=== PATIENT | male | born 1960 | race Caucasian/White ===

== ENCOUNTER 2021-11-05 15:44 | Inpatient (IN) ==
[2021-11-05] MEDS ORDERED: NS 100 ML IV 100 ML ONE (16:28)
--- NOTE | 2021-11-05 16:31 | DR.EXTPAIN ---
HPI Time seen Time Seen by Provider: 11/05/21 16:22 PCP Primary Care Physician: SEBASTIAN HPI Comment HPI Comment: PATIENT WITH AN PATIENT BILLER COMPLAINS OF RIGHT FOOT PAIN, DISCOLORED RIGHT TOES. DENIES FEVER, CHILLS, DYSPNEA AND COUGH. Complaint/Symptoms Chief Complaint Doctor Comments: RIGHT FOOT PAIN, DISCOLORED TOES Chief Complaint:: PATIENT'S FAMILY STATES PATIENT SAYS HIS FOOT BEGAN TO HURT HIM APPROX 1 WEEK AGO. PATIENT HAS BEEN TO PCP AND FOOT DOCTOR. PATIENT HAS PREV IOUSLY DOCUMENTED AMPUTATION OF RT GREAT TOE. ALL OF HIS REMAINING TOES ARE ISCHEMIC COVID-19 Coronavirus risk:travel/contact w/high risk person: No Has patient experienced Coronavirus symptoms: No Source History Provided: Patient Mode of arrival Mode of Arrival: Ambulatory Timing Onset of Chief Complaint: 10/30/21 Associated signs and symptoms Associated Signs and Symptoms: Pain (IN RIGHT FOOT AND DISCOLORED TOES) PMH PMH Past Medical History: Yes Past Medical History Comment: PVD Past Surgical History: Yes Surgical History: Ortho Surgery Family History History of Family Medical Conditions: Yes Family Medical History: Heart Failure Social History Does patient currently use any type of tobacco product: Yes Have you used tobacco products in the last 12 months: Yes Type of Tobacco Use: Cigarettes Does any household member use tobacco: No Alcohol Use: None Do you use any recreational Drugs:: No Lives With: Alone Lives Where: Home Travel Risk Coronavirus risk:travel/contact w/high risk person: No Has patient experienced Coronavirus symptoms: No Infectious screening In the last 2 months have you had wt loss of >10#?: NO Have you had fever, night sweats or hemotysis?: No Have you traveled outside the country in the last 6 months?: No Isolation: Standard ROS Review of Systems Constitutional: No Symptoms Reported Eyes: No Symptoms Reported ENTM: No Symptoms Reported Respiratoy: No Symptoms Reported Cardiovascular: No Symptoms Reported Gastrointestinal/Abdominal: No Symptoms Reported Genitourinary: No Symptoms Reported Neurological: No Symptoms Reported Musculoskeletal: See HPI and Right (FOOT WITH PAIN, SWELLING , BLACK DISCOLORATION OVER GREAT TOE STUMP AND 2ND TOE, RIGHT PEDIS PULSE 2+) Integumentary: No Symptoms Reported Hematologic/Lymphatic: No Symptoms Reported Endocrine: No Symptoms Reported Psychiatric: No Symptoms Reported All Other Systems: Reviewed and Negative PE Vital Signs Vitals: Temperature 98.6 F Pulse Rate 77 Respiratory Rate 20 Blood Pressure 152/66 O2 Sat by Pulse Oximetry 95 General Limitations: Language Barrier (MARKED DECREASED HEARING ACUITY) Head Head Exam: Normal Inspection Eyes Eye exam: Normal Appearance and PERRL ENT ENT Exam: Normal Exam and Normal Oropharynx Neck Neck Exam: Normal Inspection Chest Chest Inspection: Normal Inspection and Symmetric Chest Wall Rise Respiratory Respiratory Exam: Bilateral: Clear to Auscultation Cardiovascular Cardiovascular Exam: Regular Rate and Normal Rhythm Abdominal Exam Abdominal Exam: Normal Inspection and Normal Bowel Sounds Extremities Extremities Exam: Full ROM, Tenderness and Edema (RIGHT FOOT PROXIMAL TO DISTAL METATARSALS, ERYTHYMA, BLACK DISCOLORATION STUMP GREAT TOE AMPUTATION SITE, AND 2ND TOE) Upper Extremities Neuromotor Exam: Normal Exam Lower Extremities Hip/Pelvis Exam: Normal Inspection Foot/Toe Exam: Swelling and Other (BLACK DISCOLORATION STUMP RIGHT GREAT TOE AND 2ND TOE) Back Back Exam: Normal Inspection and Full ROM Neurological Neurological Exam: Alert and Oriented X3 Psychiatric Psychiatric Exam: Normal Affect Skin Skin Exam: Warm and Dry MDM Differential Diagnosis Differential Diagnosis: Other (RIGHT FOOT ISCHEMIA RIGHT FOOT, PERIPHERAL VASCULAR DISEASE) COURSE Treatment Treatment: IV NORMAL SALINE 200ML/HR Consultation Call Returned: 17:30 Consultation Comments: DISCUSSED WITH DR MONTOYA FOR ADMIT ROR Labs Reviewed Laboratory Results Reviewed?: Yes Result Diagrams: 11/05/21 16:15 11/05/21 16:15 Laboratory: WBC 9.3 X10^3/uL (3.6-10.0) 11/05/21 16:15 RBC 4.93 X10^6/uL (4.7-6.0) 11/05/21 16:15 Hgb 14.5 g/dL (13.5-18.0) 11/05/21 16:15 Hct 43.3 % (42.0-54.0) 11/05/21 16:15 MCV 87.9 fL (80.0-100.0) 11/05/21 16:15 MCH 29.5 pg (27.0-34.0) 11/05/21 16:15 MCHC 33.5 g/dL (33.0-35.0) 11/05/21 16:15 RDW 14.1 % (11.6-16.5) 11/05/21 16:15 Plt Count 198 X10^3/uL (150.0-450.0) 11/05/21 16:15 MPV 8.1 fL (7.4-11.0) 11/05/21 16:15 Neut % (Auto) 73.9 % (42.0-75.0) 11/05/21 16:15 Lymph % (Auto) 16.3 % (21.0-51.0) L 11/05/21 16:15 [place] % (Auto) 8.6 % (0.0-13.0) 11/05/21 16:15 Eos % (Auto) 0.7 % (0.9-2.9) L 11/05/21 16:15 Baso % (Auto) 0.5 % (0.2-1.0) 11/05/21 16:15 Neut # (Auto) 6.9 x10^3/uL (2.2-4.8) H 11/05/21 16:15 Lymph # (Auto) 1.5 X10^3/uL (1.3-2.9) 11/05/21 16:15 [place] # (Auto) 0.8 x10^3/uL (0.3-0.8) 11/05/21 16:15 Eos # (Auto) 0.1 x10^3/uL (0.0-0.2) 11/05/21 16:15 Baso # (Auto) 0.0 X10^3/uL (0.0-0.1) 11/05/21 16:15 Absolute Nucleated RBC 0.0 /100WBC 11/05/21 16:15 PT 14.5 SECONDS (11.8-14.3) 11/05/21 16:33 INR Target Range - 11/05/21 16:33 INR 1.18 (0.8-1.3) 11/05/21 16:33 APTT 34.4 SECONDS (22.9-36.5) 11/05/21 16:33 PTT Comment - 11/05/21 16:33 Sodium 139 mmol/L (136-145) 11/05/21 16:15 Corrected Sodium 140 mmol/L (136-145) 11/05/21 16:15 Potassium 4.0 mmol/L (3.5-5.1) 11/05/21 16:15 Chloride 104 mmol/L (98-107) 11/05/21 16:15 Carbon Dioxide 26.3 mmol/L (21-32) 11/05/21 16:15 BUN 8 mg/dL (7-18) 11/05/21 16:15 Creatinine 0.61 mg/dL (0.70-1.30) L 11/05/21 16:15 Est GFR (MDRD) Af Amer > 60 (>60) 11/05/21 16:15 Est GFR (MDRD) Non-Af > 60 (>60) 11/05/21 16:15 Glucose 122 mg/dL (65-99) H 11/05/21 16:15 Lactic Acid 0.5 mmol/L (0.4-2.0) 11/05/21 16:33 Calcium 8.8 mg/dL (8.5-10.1) 11/05/21 16:15 Corrected Calcium TNP 11/05/21 16:15 Total Bilirubin 0.40 mg/dL (0.2-1.0) 11/05/21 16:15 AST 11 Units/L (15-37) L 11/05/21 16:15 ALT 13 Units/L (12-78) 11/05/21 16:15 Alkaline Phosphatase 77 Units/L (46-116) 11/05/21 16:15 Total Protein 7.3 g/dL (6.4-8.2) 11/05/21 16:15 Albumin 3.6 g/dL (3.4-5.0) 11/05/21 16:15 Globulin 3.7 g/dL (2.5-4.5) 11/05/21 16:15 Albumin/Globulin Ratio 1.0 Ratio (1.1-2.1) L 11/05/21 16:15 Opioid Opioid Risk Tool Age (Samuel box if 16-45): No History of Preadolescent Sexual Abuse: No Total: 0 Total Score Risk Category: Low Risk Copyright: Dilip GARCIA predicting aberrant behaviors Diagnosis Discharge Problem: Ischemic pain of right foot
[2021-11-05] MEDS ORDERED: VANCOMYCIN IV *PREMIX 1 G/200 ML BAG 1 G/200 ML PIGGYBACK IV ONE ×2 (16:32→16:43)
[2021-11-05] MEDS ORDERED: NS 1,000 ML IV 1,000 ML IV STA (16:34)
[2021-11-05] MEDS ORDERED: NS 1,000 ML IV 1,000 ML ONE (16:42)
[2021-11-05 16:52] LABS: BASOPHILS % (AUTO) 0.5 % (0.2-1.0); EOSINOPHILS # (AUTO) 0.1 x10^3/uL (0.0-0.2); EOSINOPHILS % (AUTO) 0.7 % (0.9-2.9); HEMATOCRIT 43.3 % (42.0-54.0); HEMOGLOBIN 14.5 g/dL (13.5-18.0); LYMPHOCYTES # (AUTO) 1.5 X10^3/uL (1.3-2.9); LYMPHOCYTES % (AUTO) 16.3 % (21.0-51.0); MEAN CORPUSCULAR HEMOGLOBIN 29.5 pg (27.0-34.0); MEAN CORPUSCULAR HGB CONC 33.5 g/dL (33.0-35.0); MEAN CORPUSCULAR VOLUME 87.9 fL (80.0-100.0); MEAN PLATELET VOLUME 8.1 fL (7.4-11.0); MONOCYTES # (AUTO) 0.8 x10^3/uL (0.3-0.8); MONOCYTES % (AUTO) 8.6 % (0.0-13.0); NEUTROPHILS # (AUTO) 6.9 x10^3/uL (2.2-4.8); NEUTROPHILS % (AUTO) 73.9 % (42.0-75.0); PLATELET COUNT 198 X10^3/uL (150.0-450.0); RED BLOOD COUNT 4.93 X10^6/uL (4.7-6.0); RED CELL DISTRIBUTION WIDTH 14.1 % (11.6-16.5); WHITE BLOOD COUNT 9.3 X10^3/uL (3.6-10.0)
[2021-11-05 17:00] LABS: ALANINE AMINOTRANSFERASE 13 Units/L (12-78); ALBUMIN 3.6 g/dL (3.4-5.0); ALKALINE PHOSPHATASE 77 Units/L (46-116); ASPARTATE AMINO TRANSFERASE 11 Units/L (15-37); BLOOD UREA NITROGEN 8 mg/dL (7-18); CALCIUM 8.8 mg/dL (8.5-10.1); CARBON DIOXIDE 26.3 mmol/L (21-32); CHLORIDE 104 mmol/L (98-107); COR NA(FOR HYPERGLY) 140 mmol/L (136-145); CREATININE 0.61 mg/dL (0.70-1.30); SODIUM 139 mmol/L (136-145); TOTAL PROTEIN 7.3 g/dL (6.4-8.2); eGFR NON BLACK RACES > 60 (>60)
[2021-11-05] MEDS: NS 1,000 ML IV 1,000 ML IV SCH (20:05)
--- NOTE | 2021-11-05 20:05 | CT ---
HISTORYFAMILY STATES PATIENT SAYS HIS FOOT BEGAN TO HURT HIM APPROX 1 WEEK AGO. PATIENT HAS BEEN TO PCP AND FOOT DOCTOR. PATIENT HAS PREVIOUSLY DOCUMENTED AMPUTATION OF RT GREAT TOE. ALL OF HIS REMAINING TOES ARE ISCHEMICSTUDYCTA AORTA WITH RUNOFFCOMPARISONNone availableTECHNIQUEMultiple axial images of the abdomen and pelvis were obtained from the mesenteric vasculature to the plantar surface of the feet both prior to and after the administration of IV contrast. 3D reconstructions were performed utilizing radial maximum intensity projection imaging. Dose reduction techniques including Automated Exposure Control (AEC) and adjustment of mA and kV were utilized.FINDINGSThe visualized portions of the solid organs are unremarkable in their CT appearance. No significant mesenteric lymphadenopathy or stranding can be observed. No free fluid or free air is seen within the abdomen. No bowel wall thickening or bowel dilatation is present. Small sliding hiatal hernia. Distal colonic diverticulosis without acute diverticulitis. The appendix is normal. The urinary bladder is grossly unremarkable. Mild prostatomegaly. The bony structures are grossly intact.Bilateral lower extremity soft tissue swelling, right more severe than left.Moderate atheromatous plaque within the suprarenal and infrarenal abdominal aorta without aneurysmal dilatation.Right common iliac artery demonstrates moderate atheromatous plaque without occlusion. Internal and external iliac arteries are patent on the right. High-grade stenosis of the right common femoral artery adjacent to the fem-fem bypass graft. Occlusion of the right superficial femoral artery distal to the fem-fem bypass graft. There is no flow within the right superficial femoral artery. The right-sided femoral bypass graft is totally occluded. There is reconstitution of flow within the distal right popliteal artery and tibioperoneal trunk. Three-vessel runoff to the ankle and single-vessel runoff to the foot provided by the posterior tibialis artery.Occlusion of the left common and external iliac arteries. Reconstitution of flow from the VERN provides tributary arterial flow within the deep pelvic distribution of the internal iliac artery. The left common femoral artery is occluded. There is reconstitution of the left superficial femoral artery with diminutive flow noted extending to the distal leg/abductor hiatus with occlusion. There is reconstitution of flow within the proximal popliteal artery. There is 3 vessel runoff to the ankle and 2 vessel runoff to the left foot.IMPRESSIONThe film and right fem-popliteal arterial grafts are occluded.Occlusion of the left common, external and common femoral arteries. Reconstitution of flow of the left superficial femoral artery with diminished flow to the level of the distal leg/hiatus with short-segment occlusion. Reconstitution of flow of the popliteal artery with three-vessel runoff to the foreleg and 2 vessel runoff to the left foot.High-grade stenosis of the right common femoral artery adjacent to the fem-fem graft insertion. Occlusion of the right SFA and majority of the popliteal artery. Reconstitution of flow within the distal popliteal artery with three-vessel runoff to the right ankle and single-vessel runoff to the right foot provided by the posterior tibialis artery.Electronically signed by: LISA ROSALES (Nov 05, 2021 20:03:40)
[2021-11-05] MEDS ORDERED: HEPARIN SODIUM IN D5W 25,000 UNITS/500 ML BAG IV PRN ×2 (20:16→20:24)
[2021-11-05] MEDS ORDERED: CATAPRES TAB 0.2 MG ONE (20:22)
[2021-11-05 20:45] LABS: HEMATOCRIT 43.2 % (42.0-54.0); HEMOGLOBIN 14.5 g/dL (13.5-18.0)
[2021-11-05] MEDS: DILAUDID INJ IVP PRN (20:56)
[2021-11-05] MEDS ORDERED: CATAPRES TAB 0.2 MG PO SCH (21:00)
[2021-11-05] MEDS ORDERED: HEPARIN SODIUM INJ 5000 UNITS IVP ONE (21:27)
[2021-11-05] MEDS ORDERED: CATAPRES TAB 0.2 MG PO PRN (21:36)
[2021-11-05] MEDS ORDERED: HEPARIN SODIUM INJ 5000 UNITS ONE (21:43)
[2021-11-05] MEDS: LOPRESSOR TAB 25 MG PO SCH (22:00)
[2021-11-06 00:39] VITALS: BMI 31.1
[2021-11-06] MEDS: NS 1,000 ML IV 1,000 ML IV SCH ×2 (04:26→11:40)
[2021-11-06] MEDS: DILAUDID INJ IVP PRN (05:20)
--- NOTE | 2021-11-06 07:15 | RAD ---
HISTORYPRE-OP FOR RT FOOTSTUDYCHEST, 1 VIEWCOMPARISONNoneTECHNIQUEAP view of the chestFINDINGSCardiac and mediastinal contours are within normal limits. There are bilateral mild to moderate scattered interstitial opacities. No definite pleural effusion or pneumothorax. Left costophrenic sulcus not completely visualized.[id number] interstitial opacities are nonspecific. Differential includes chronic interstitial disease, atypical pneumonia, or edema.Electronically signed by: Geraldo Taylor (Nov 06, 2021 07:14:27)
[2021-11-06] MEDS ORDERED: LOPRESSOR INJ 5 MG AMP ONE (11:39)
[2021-11-06] MEDS ORDERED: LOPRESSOR INJ 5 MG AMP IVP ONE (11:40)
[2021-11-06 12:22] VITALS: BP 166/73
[2021-11-06] MEDS: LOPRESSOR TAB 25 MG PO SCH (12:22)
--- NOTE | 2021-11-06 13:47 | DR.H&P ---
H&P History & Physical for Day of: H&P Date: 11/05/21 Chief Complaint Chief Complaint: 61 year old male seen in Dr. Patel's office ( podiatry ) with ischemic changes of the right second toe and adjacent toe with evidence of early gangrene. Past medical history significant for femoral- femoral bypass for occluded left common iliac artery and right femoral popliteal artery for right lower extremity ischemia done at the same time in December of 2020. Subsequently patient had amputation of the right great toe. Allergies Allergies Allergy/AdvReac Type Severity Reaction Status Date / Time No Known Drug Allergies Allergy Verified 11/05/21 15:45 History of Present Illness History of Present Illness: As above. The patient has significant rest pain of both lower extremities. CT angiogram obtained showed thrombosis of both the femoral femoral graft and the right femoral popliteal graft. Patient three- vessel runoff on the right leg as this is the most acute leg at this time. Past Medical History Past Medical History: Hypertension (on no treatment ) Additional Medical History: Patient with heavy smoking history. Patient has been deaf since but is educated, can read and write ( that is how we communicated ) and is oriented to person , place and time. History also obtained from his sister over the phone. Past Surgical History Surgical History: Ortho Surgery and Other Additional Surgical History: History of femoral femoral bypass for occluded left common iliac and femoral popliteal bypass for severe ischemia right leg done in December of 2020. All this appears to be occluded now . At that time he was prepared for amputation of the right great toe. His sister notes that he is non- compliant with treatment. He continues to smoke cigarettes heavily and takes no other medications despite having recognized high blood pressure on admission. Family History Family Medical History: Heart Failure Social History Does patient currently use any type of tobacco product: Yes Type of Tobacco Use: Cigarettes How many years tobacco product used: 50 Packs per day or dips/chews per day: 2 Does any household member use tobacco: No Alcohol Use: None Drug Use: None Prescription drug monitoring program results: PDMP was not reviewed Medications Home Medications: No Known Drug Allergies Allergy (Verified 11/05/21 15:45) CONTINUE taking the following medications NK 11/06/21 [History] Labs Result Diagrams: 11/05/21 20:35 11/05/21 16:15 Labs: Laboratory WBC 9.3 X10^3/uL (3.6-10.0) 11/05/21 16:15 RBC 4.93 X10^6/uL (4.7-6.0) 11/05/21 16:15 Hgb 14.5 g/dL (13.5-18.0) 11/05/21 20:35 Hct 43.2 % (42.0-54.0) 11/05/21 20:35 MCV 87.9 fL (80.0-100.0) 11/05/21 16:15 MCH 29.5 pg (27.0-34.0) 11/05/21 16:15 MCHC 33.5 g/dL (33.0-35.0) 11/05/21 16:15 RDW 14.1 % (11.6-16.5) 11/05/21 16:15 Plt Count 192 X10^3/uL (150.0-450.0) 11/05/21 20:35 MPV 8.1 fL (7.4-11.0) 11/05/21 16:15 Neut % (Auto) 73.9 % (42.0-75.0) 11/05/21 16:15 Lymph % (Auto) 16.3 % (21.0-51.0) L 11/05/21 16:15 [place] % (Auto) 8.6 % (0.0-13.0) 11/05/21 16:15 Eos % (Auto) 0.7 % (0.9-2.9) L 11/05/21 16:15 Baso % (Auto) 0.5 % (0.2-1.0) 11/05/21 16:15 Neut # (Auto) 6.9 x10^3/uL (2.2-4.8) H 11/05/21 16:15 Lymph # (Auto) 1.5 X10^3/uL (1.3-2.9) 11/05/21 16:15 [place] # (Auto) 0.8 x10^3/uL (0.3-0.8) 11/05/21 16:15 Eos # (Auto) 0.1 x10^3/uL (0.0-0.2) 11/05/21 16:15 Baso # (Auto) 0.0 X10^3/uL (0.0-0.1) 11/05/21 16:15 Absolute Nucleated RBC 0.0 /100WBC 11/05/21 16:15 PT 14.5 SECONDS (11.8-14.3) 11/05/21 20:35 INR Target Range - 11/05/21 20:35 INR 1.19 (0.8-1.3) 11/05/21 20:35 APTT 80.6 SECONDS (22.9-36.5) H 11/06/21 11:00 PTT Comment - 11/06/21 11:00 Sodium 139 mmol/L (136-145) 11/05/21 16:15 Corrected Sodium 140 mmol/L (136-145) 11/05/21 16:15 Potassium 4.0 mmol/L (3.5-5.1) 11/05/21 16:15 Chloride 104 mmol/L (98-107) 11/05/21 16:15 Carbon Dioxide 26.3 mmol/L (21-32) 11/05/21 16:15 BUN 8 mg/dL (7-18) 11/05/21 16:15 Creatinine 0.61 mg/dL (0.70-1.30) L 11/05/21 16:15 Est GFR (MDRD) Af Amer > 60 (>60) 11/05/21 16:15 Est GFR (MDRD) Non-Af > 60 (>60) 11/05/21 16:15 Glucose 122 mg/dL (65-99) H 11/05/21 16:15 Lactic Acid 0.5 mmol/L (0.4-2.0) 11/05/21 16:33 Calcium 8.8 mg/dL (8.5-10.1) 11/05/21 16:15 Corrected Calcium TNP 11/05/21 16:15 Total Bilirubin 0.40 mg/dL (0.2-1.0) 11/05/21 16:15 AST 11 Units/L (15-37) L 11/05/21 16:15 ALT 13 Units/L (12-78) 11/05/21 16:15 Alkaline Phosphatase 77 Units/L (46-116) 11/05/21 16:15 Total Protein 7.3 g/dL (6.4-8.2) 11/05/21 16:15 Albumin 3.6 g/dL (3.4-5.0) 11/05/21 16:15 Globulin 3.7 g/dL (2.5-4.5) 11/05/21 16:15 Albumin/Globulin Ratio 1.0 Ratio (1.1-2.1) L 11/05/21 16:15 Review of Systems Constitutional: Other (Pain both of both lowere extremities ,greater on the right with gangrenous changes of the toes of the right foot ) Eyes: No Symptoms Reported ENT: No Symptoms Reported Respiratory: No Symptoms Reported Cardiovascular: No Symptoms Reported Gastrointestinal: No Symptoms Reported Genitourinary: No Symptoms Reported Musculoskeletal: Other (See HPI) Skin: Other (right great toe has been amputated. Dry gangrene at the base of this old incision. Dry gangrene of the second toe and beginning at the base of the third toe) Neurological: No Symptoms Reported Physical Exam Vital Signs: Temperature 97.7 F Pulse Rate [Right Brachial] 75 Pulse Rate 41 Respiratory Rate 20 Blood Pressure [Right Arm] 148/68 Blood Pressure 166/73 O2 Sat by Pulse Oximetry 96 Oriented: Normal, Time, Person and Place Eyes: Normal Ear: Normal Nose: Normal Throat: Normal Respiratory: Clear Throughout Cardiovascular: Normal and Other (palpable pulse in the right groin. No palpable or doppler signal at the right ankle. Absent pulse left groin. Absent pulses and doppler signals of the left ankle ) : Normal Auscultation: Bowel Sounds: Normal Palpation: Normal Tenderness: Normal and Other (right foot very tender to palpation. ) Skin: Other (See notes above in regards to the right foot ) Musculoskeletal: Foot (evidence right great toe amputation. Gangrenous changes as noted above. Ischemic changes of the left foot not present but has severely compromised flow on the left side as well ) Psychiatric: Normal and Other (patient is very alert and oriented. ) Mood Description: Angry (has pain ) Affect: Angry and Anxious Speech Pattern: Unclear (unclear speech secondary to history of deafness since ) Assessment/Plan (1) Critical limb ischemia of right lower extremity with gangrene: Status: Acute Plan: The patient will be placed on a Heparin drip. I will obtain the operative summaries from his recent surgery for the femoral femoral graft and right femoral popliteal bypass. I have spoken to his sister by phone and explained that he will probably need some type of intervention of the right leg once I have reviewed the old data. He is at high risk for limb loss of the right leg in the near future as well as possibly the left leg in the future as well. This is a very complicated case. There is a high risk of bilateral limb loss and . (2) Critical limb ischemia of left lower extremity: Status: Acute (3) Ischemic pain of right foot: Status: Acute Review H&P Reviewed: Yes Patient was examined?: Yes
--- NOTE | 2021-11-06 13:54 | VAS ---
HISTORYSevere ski Mica lower extremitiesSTUDYBilateral ABIsCOMPARISONNoneFINDINGSABI on the right 0.25. FANY on the left 0.24. These findings are very lobe and suggest the possibility of bilaterally significant atherosclerotic obstructive disease. Correlation with CTA is recommended for further evaluation.IMPRESSIONBilaterally very low ABIs 0.25 on the right and 0.24 on the left. These findings are suggestive of possibility of severe atherosclerotic obstructive disease in both lower extremities. CTA of the abdomen pelvis and lower extremities recommended.Electronically signed by: CHARU GAMBOA (Nov 06, 2021 13:52:54)
--- NOTE | 2021-11-06 14:28 | W.DIS.FURT ---
Summary of Discharge Discharge Summary of Date Date of Exam: 11/06/21 Admission Date Date of Admission: 11/05/21 Admission Diagnosis Patient Problems (Updated 11/06/21 @ 13:50 by Vasquez Hogan) Ischemic pain of right foot (Acute) M79.671, I99.8 Hospital Course: 61 year old male admitted for severe ischemia of several months duration of the right lower extremity with significant limb threatening gangrenous changes of the right foot. History of femoral femoral bypass for occluded left common iliac and right femoral popliteal bypass for ischemic right leg . Both surgeries done at the same time in December of 2020. Both grafts appear to be occluded now. He was admitted, hydrated, placed on Heparin drip and CT angiogram obtained showing occlusion of both the femoral femoral graft and the femoral popliteal graft. He is at high risk of limb loss. Ankle-brachial index on the right is 0. 25 and is 0. 24 on the left. Healed right great toe amputation site with gangrenous changes at the previous incision as well as gangrenous changes of the second and third toes. The patient was scheduled for intervention but has refused any type of treatment. I have spoken with his sisters by phone and explained to them that if nothing is done he will proceed to limb loss, sepsis and probable .I have explained this to him in writing ,in person ,in the presence of his ICU nurse and our nurse railroad track repair supervisor. He is oriented to person ,place and time. He has written that he refuses any type of treatment . He will be discharged against medical advice. I have encouraged him to sign the AMA form . I will offer him a prescription for Percocet and one for clindamycin . Vital Signs: Vital Signs (72 hours) 11/05/21 15:46 11/05/21 19:08 11/05/21 19:45 Temperature 98.6 F 98.6 F 98.2 F Pulse Rate 77 72 Pulse Rate [Right Brachial] 75 Respiratory Rate 20 18 14 Blood Pressure 152/66 177/70 Blood Pressure [Right Arm] 148/68 O2 Sat by Pulse Oximetry 95 96 98 11/05/21 20:00 11/05/21 20:56 11/05/21 21:00 Temperature 98.2 F Pulse Rate 71 66 Pulse Rate [Right Brachial] Respiratory Rate 24 22 25 H Blood Pressure 191/92 170/68 Blood Pressure [Right Arm] O2 Sat by Pulse Oximetry 98 97 11/05/21 21:26 11/05/21 22:00 11/05/21 23:00 Temperature Pulse Rate 60 61 Pulse Rate [Right Brachial] Respiratory Rate 22 22 25 H Blood Pressure 123/58 128/62 Blood Pressure [Right Arm] O2 Sat by Pulse Oximetry 94 L 93 L 11/06/21 00:00 11/06/21 01:00 11/06/21 02:00 Temperature 98.1 F Pulse Rate 49 L 49 L 52 L Pulse Rate [Right Brachial] Respiratory Rate 25 H 25 H 25 H Blood Pressure 122/58 139/65 128/62 Blood Pressure [Right Arm] O2 Sat by Pulse Oximetry 95 95 95 11/06/21 03:00 11/06/21 04:00 11/06/21 05:00 Temperature 97.9 F Pulse Rate 51 L 50 L 65 Pulse Rate [Right Brachial] Respiratory Rate 27 H 19 19 Blood Pressure 129/59 143/65 142/63 Blood Pressure [Right Arm] O2 Sat by Pulse Oximetry 97 97 96 11/06/21 05:20 11/06/21 05:50 11/06/21 06:00 Temperature Pulse Rate 50 L Pulse Rate [Right Brachial] Respiratory Rate 22 22 24 Blood Pressure 148/65 Blood Pressure [Right Arm] O2 Sat by Pulse Oximetry 96 11/06/21 08:11 11/06/21 11:43 11/06/21 12:40 Temperature 97.7 F 97.7 F Pulse Rate 41 L Pulse Rate [Right Brachial] Respiratory Rate 20 Blood Pressure 166/73 166/73 Blood Pressure [Right Arm] O2 Sat by Pulse Oximetry 96 Labs: Laboratory Last Values WBC 9.3 X10^3/uL (3.6-10.0) 11/05/21 16:15 RBC 4.93 X10^6/uL (4.7-6.0) 11/05/21 16:15 Hgb 14.5 g/dL (13.5-18.0) 11/05/21 20:35 Hct 43.2 % (42.0-54.0) 11/05/21 20:35 MCV 87.9 fL (80.0-100.0) 11/05/21 16:15 MCH 29.5 pg (27.0-34.0) 11/05/21 16:15 MCHC 33.5 g/dL (33.0-35.0) 11/05/21 16:15 RDW 14.1 % (11.6-16.5) 11/05/21 16:15 Plt Count 192 X10^3/uL (150.0-450.0) 11/05/21 20:35 MPV 8.1 fL (7.4-11.0) 11/05/21 16:15 Neut % (Auto) 73.9 % (42.0-75.0) 11/05/21 16:15 Lymph % (Auto) 16.3 % (21.0-51.0) L 11/05/21 16:15 [place] % (Auto) 8.6 % (0.0-13.0) 11/05/21 16:15 Eos % (Auto) 0.7 % (0.9-2.9) L 11/05/21 16:15 Baso % (Auto) 0.5 % (0.2-1.0) 11/05/21 16:15 Neut # (Auto) 6.9 x10^3/uL (2.2-4.8) H 11/05/21 16:15 Lymph # (Auto) 1.5 X10^3/uL (1.3-2.9) 11/05/21 16:15 [place] # (Auto) 0.8 x10^3/uL (0.3-0.8) 11/05/21 16:15 Eos # (Auto) 0.1 x10^3/uL (0.0-0.2) 11/05/21 16:15 Baso # (Auto) 0.0 X10^3/uL (0.0-0.1) 11/05/21 16:15 Absolute Nucleated RBC 0.0 /100WBC 11/05/21 16:15 PT 14.5 SECONDS (11.8-14.3) 11/05/21 20:35 INR Target Range - 11/05/21 20:35 INR 1.19 (0.8-1.3) 11/05/21 20:35 APTT 80.6 SECONDS (22.9-36.5) H 11/06/21 11:00 PTT Comment - 11/06/21 11:00 Sodium 139 mmol/L (136-145) 11/05/21 16:15 Corrected Sodium 140 mmol/L (136-145) 11/05/21 16:15 Potassium 4.0 mmol/L (3.5-5.1) 11/05/21 16:15 Chloride 104 mmol/L (98-107) 11/05/21 16:15 Carbon Dioxide 26.3 mmol/L (21-32) 11/05/21 16:15 BUN 8 mg/dL (7-18) 11/05/21 16:15 Creatinine 0.61 mg/dL (0.70-1.30) L 11/05/21 16:15 Est GFR (MDRD) Af Amer > 60 (>60) 11/05/21 16:15 Est GFR (MDRD) Non-Af > 60 (>60) 11/05/21 16:15 Glucose 122 mg/dL (65-99) H 11/05/21 16:15 Lactic Acid 0.5 mmol/L (0.4-2.0) 11/05/21 16:33 Calcium 8.8 mg/dL (8.5-10.1) 11/05/21 16:15 Corrected Calcium TNP 11/05/21 16:15 Total Bilirubin 0.40 mg/dL (0.2-1.0) 11/05/21 16:15 AST 11 Units/L (15-37) L 11/05/21 16:15 ALT 13 Units/L (12-78) 11/05/21 16:15 Alkaline Phosphatase 77 Units/L (46-116) 11/05/21 16:15 Total Protein 7.3 g/dL (6.4-8.2) 11/05/21 16:15 Albumin 3.6 g/dL (3.4-5.0) 11/05/21 16:15 Globulin 3.7 g/dL (2.5-4.5) 11/05/21 16:15 Albumin/Globulin Ratio 1.0 Ratio (1.1-2.1) L 11/05/21 16:15 Reason For Visit: RIGHT FOOT ISCHEMIA Discharge Date Discharge Date: 11/06/21 Discharge Diagnosis All Active Problems (Updated 11/06/21 @ 13:50 by Vasquez Hogan) Critical limb ischemia of left lower extremity (Acute) Critical limb ischemia of right lower extremity with gangrene (Acute) Ischemic pain of right foot (Acute) Plan of Treatment: Continue with present treatment and follow up plan. Pt is to keep follow up appointment as instructed and take medications as ordered. Discharge Medications Discharge Medications: No Known Drug Allergies Allergy (Verified 11/05/21 15:45) CONTINUE taking the following medications NK 11/06/21 [History] New Prescriptions clindamycin HCl 150 mg PO QID 7 Days #28 cap 11/06/21 [Rx] oxycodone-acetaminophen [Percocet] 1 tab PO Q6H PRN #30 tab MDD 6 11/06/21 [Rx] Follow up and Referral Follow Up: prn Discharge Disposition Assessment: Severe bilateral limbs threatening ischemia ,right worse than left . Alirio with gangrenous changes of the right foot Discharge Disposition: High likelihood of limb loss and . I have encouraged him again to change his mind Discharge Plan Discharge Plan Hospital Course: 61 year old male admitted for severe ischemia of several months duration of the right lower extremity with significant limb threatening gangrenous changes of the right foot. History of femoral femoral bypass for occluded left common iliac and right femoral popliteal bypass for ischemic right leg . Both surgeries done at the same time in December of 2020. Both grafts appear to be occluded now. He was admitted, hydrated, placed on Heparin drip and CT angiogram obtained showing occlusion of both the femoral femoral graft and the femoral popliteal graft. He is at high risk of limb loss. Ankle-brachial index on the right is 0. 25 and is 0. 24 on the left. Healed right great toe amputation site with gangrenous changes at the previous incision as well as gangrenous changes of the second and third toes. The patient was scheduled for intervention but has refused any type of treatment. I have spoken with his sisters by phone and explained to them that if nothing is done he will proceed to limb loss, sepsis and probable .I have explained this to him in writing ,in person ,in the presence of his ICU nurse and our nurse railroad track repair supervisor. He is oriented to person ,place and time. He has written that he refuses any type of treatment . He will be discharged against medical advice. I have encouraged him to sign the AMA form . I will offer him a prescription for Percocet and one for clindamycin . Patient Disposition: HOME, SELF-CARE Condition: Stable Health Concerns: Post Hospitalization: new medications and changes needed to prevent readmission or further decline. Pt educated and given instructions on all concerns. Care Plan Goals: Hopefully he will change his mind and proceed with treatment .Even with treatment he has a high likelihood of a amputation . Plan of Treatment: Continue with present treatment and follow up plan. Pt is to keep follow up appointment as instructed and take medications as ordered. Assessment: Severe bilateral limbs threatening ischemia ,right worse than left . Alirio with gangrenous changes of the right foot Prescription drug monitoring program results: PDMP was not reviewed Prescriptions: New oxycodone-acetaminophen [Percocet] 5-325 mg tablet 1 tab PO Q6H MDD 6 PRNQty: 30 RF: 0 clindamycin HCl 150 mg capsule 150 mg PO QID 7 Days Qty: 28 RF: 0 No Action NK RF: 0 Follow ups/Referrals Follow ups/Referrals: Geovanni Patel [Primary Care Provider] - 3 days Instructions Stand Alone Forms: Excuse From Work or School, Precautions for COVID19, [facility], Patient Portal, Social Distancing
== END 2021-11-06 15:35 | disposition left against medical advice (07) | DRG 301 ==
LOC: ER 15:44 → ICU 18:51
PROVIDERS: ADMIT Surgery; ATTEND Surgery
DX: M79.671 Pain in right foot; I70.222 Atherosclerosis of native arteries of extremities with rest pain, left leg; R94.31 Abnormal electrocardiogram [ECG] [EKG]; R26.89 Other abnormalities of gait and mobility; Z72.0 Tobacco use; I99.8 Other disorder of circulatory system; H90.3 Sensorineural hearing loss, bilateral; Z53.29 Procedure and treatment not carried out because of patient's decision for other reasons; Z89.411 Acquired absence of right great toe; I70.261 Atherosclerosis of native arteries of extremities with gangrene, right leg

== ENCOUNTER 2021-11-07 13:47 | Inpatient (IN) ==
[2021-11-07] MEDS ORDERED: HEPARIN SODIUM INJ 5000 UNITS IVP ONE (15:59)
[2021-11-07 16:09] LABS: HEMATOCRIT 43.2 % (42.0-54.0); HEMOGLOBIN 14.5 g/dL (13.5-18.0)
[2021-11-07] MEDS: NICOTINE PATCH TD SCH (16:27)
[2021-11-07] MEDS: HEPARIN SODIUM IN D5W 25,000 UNITS/500 ML BAG IV PRN (16:40)
[2021-11-07] MEDS: DILAUDID INJ IVP PRN (20:12)
[2021-11-07 21:48] LABS: BASOPHILS # (AUTO) 0.1 X10^3/uL (0.0-0.1); BASOPHILS % (AUTO) 0.9 % (0.2-1.0); EOSINOPHILS # (AUTO) 0.1 x10^3/uL (0.0-0.2); EOSINOPHILS % (AUTO) 1.5 % (0.9-2.9); HEMOGLOBIN 14.2 g/dL (13.5-18.0); LYMPHOCYTES # (AUTO) 1.5 X10^3/uL (1.3-2.9); MEAN CORPUSCULAR HEMOGLOBIN 29.5 pg (27.0-34.0); MEAN CORPUSCULAR HGB CONC 33.8 g/dL (33.0-35.0); MEAN CORPUSCULAR VOLUME 87.3 fL (80.0-100.0); MEAN PLATELET VOLUME 7.9 fL (7.4-11.0); MONOCYTES # (AUTO) 0.7 x10^3/uL (0.3-0.8); MONOCYTES % (AUTO) 10.8 % (0.0-13.0); NEUTROPHILS % (AUTO) 62.8 % (42.0-75.0); PLATELET COUNT 196 X10^3/uL (150.0-450.0); RED BLOOD COUNT 4.81 X10^6/uL (4.7-6.0); RED CELL DISTRIBUTION WIDTH 14.5 % (11.6-16.5); WHITE BLOOD COUNT 6.4 X10^3/uL (3.6-10.0)
[2021-11-07 22:11] LABS: ALANINE AMINOTRANSFERASE 15 Units/L (12-78); ALBUMIN 3.3 g/dL (3.4-5.0); ALKALINE PHOSPHATASE 72 Units/L (46-116); ASPARTATE AMINO TRANSFERASE 13 Units/L (15-37); BLOOD UREA NITROGEN 9 mg/dL (7-18); CALCIUM 8.4 mg/dL (8.5-10.1); CARBON DIOXIDE 29.3 mmol/L (21-32); CHLORIDE 104 mmol/L (98-107); COR NA(FOR HYPERGLY) 141 mmol/L (136-145); CREATININE 0.66 mg/dL (0.70-1.30); SODIUM 140 mmol/L (136-145); eGFR NON BLACK RACES > 60 (>60)
--- NOTE | 2021-11-07 23:40 | DR.H&P ---
H&P History & Physical for Day of: H&P Date: 11/07/21 Chief Complaint Chief Complaint: The 61-year old presented 2 days ago with severe limb threatening ischemia of the right leg with gangrenous changes of the right second toe. He had a femoral- femoral bypass for a completely occluded left common iliac artery as well as a right femoral popliteal bypass for an occluded right superficial femoral artery done in December of 2020. Subsequently had amputation of the right great toe. He was admitted 2 days ago and at that time and was started on a Heparin drip with plan for peripheral intervention for the ischemic right leg as well as the occluded femoral- femoral graft. Ankle breaker in the [place] were 0. 24 on the right and 0. 25 on the left. There have been no gangrenous changes of the left side. He refused intervention and signed out against medical advice. I have kept in contact with his family and he has changed his mind and would like to try to save his right leg.Yes severe wrist pain but has had no further progression of gangrenous changes as of yet. Allergies Allergies Allergy/AdvReac Type Severity Reaction Status Date / Time No Known Drug Allergies Allergy Verified 11/05/21 15:45 History of Present Illness History of Present Illness: As above. CT angiogram confirmed thrombosis of both the femoral -femoral graft and the right femoral popliteal bypass graft. He has three vessels run off of the right leg below the knee with a completely occluded right superficial femoral artery along its entire length with severe stenosis of the common femoral artery at the site of the anastomosis and total occlusion left common iliac artery. the patient has been deaf since but reads and writes well and understands. Past Medical History Past Medical History: Hypertension (on no treatment ) Additional Medical History: Patient with heavy smoking history. Patient has been deaf since but is educated, can read and write ( that is how we communicated ) and is oriented to person , place and time. History also obtained from his sister over the phone. Past Surgical History Surgical History: Ortho Surgery and Other Additional Surgical History: History of femoral femoral bypass for occluded left common iliac and femoral popliteal bypass for severe ischemia right leg done in December of 2020. All this appears to be occluded now . At that time he was prepared for amputation of the right great toe. His sister notes that he is non- compliant with treatment. He continues to smoke cigarettes heavily and takes no other medications despite having recognized high blood pressure on admission. Family History Family Medical History: Heart Failure Social History Does patient currently use any type of tobacco product: Yes Have you used tobacco products in the last 12 months: Yes Type of Tobacco Use: Cigarettes Does any household member use tobacco: No Alcohol Use: None Drug Use: None Medications Home Medications: No Known Drug Allergies Allergy (Verified 11/05/21 15:45) Labs Result Diagrams: 11/07/21 21:32 11/07/21 21:32 Labs: Laboratory WBC 6.4 X10^3/uL (3.6-10.0) 11/07/21 21:32 RBC 4.81 X10^6/uL (4.7-6.0) 11/07/21 21:32 Hgb 14.2 g/dL (13.5-18.0) 11/07/21 21:32 Hct 42.0 % (42.0-54.0) 11/07/21 21:32 MCV 87.3 fL (80.0-100.0) 11/07/21 21:32 MCH 29.5 pg (27.0-34.0) 11/07/21 21:32 MCHC 33.8 g/dL (33.0-35.0) 11/07/21 21:32 RDW 14.5 % (11.6-16.5) 11/07/21 21:32 Plt Count 196 X10^3/uL (150.0-450.0) 11/07/21 21:32 MPV 7.9 fL (7.4-11.0) 11/07/21 21:32 Neut % (Auto) 62.8 % (42.0-75.0) 11/07/21 21:32 Lymph % (Auto) 24.0 % (21.0-51.0) 11/07/21 21:32 [place] % (Auto) 10.8 % (0.0-13.0) 11/07/21 21:32 Eos % (Auto) 1.5 % (0.9-2.9) 11/07/21 21:32 Baso % (Auto) 0.9 % (0.2-1.0) 11/07/21 21:32 Neut # (Auto) 4.0 x10^3/uL (2.2-4.8) 11/07/21 21:32 Lymph # (Auto) 1.5 X10^3/uL (1.3-2.9) 11/07/21 21:32 [place] # (Auto) 0.7 x10^3/uL (0.3-0.8) 11/07/21 21:32 Eos # (Auto) 0.1 x10^3/uL (0.0-0.2) 11/07/21 21:32 Baso # (Auto) 0.1 X10^3/uL (0.0-0.1) 11/07/21 21:32 Absolute Nucleated RBC 0.1 /100WBC 11/07/21 21:32 PT 14.6 SECONDS (11.8-14.3) 11/07/21 15:48 INR Target Range - 11/07/21 15:48 INR 1.20 (0.8-1.3) 11/07/21 15:48 APTT 83.0 SECONDS (22.9-36.5) H 11/07/21 21:32 PTT Comment - 11/07/21 21:32 Sodium 140 mmol/L (136-145) 11/07/21 21:32 Corrected Sodium 141 mmol/L (136-145) 11/07/21 21:32 Potassium 3.4 mmol/L (3.5-5.1) L 11/07/21 21:32 Chloride 104 mmol/L (98-107) 11/07/21 21:32 Carbon Dioxide 29.3 mmol/L (21-32) 11/07/21 21:32 BUN 9 mg/dL (7-18) 11/07/21 21:32 Creatinine 0.66 mg/dL (0.70-1.30) L 11/07/21 21:32 Est GFR (MDRD) Af Amer > 60 (>60) 11/07/21 21:32 Est GFR (MDRD) Non-Af > 60 (>60) 11/07/21 21:32 Glucose 125 mg/dL (65-99) H 11/07/21 21:32 Calcium 8.4 mg/dL (8.5-10.1) L 11/07/21 21:32 Corrected Calcium 9.0 mg/dL (8.5-10.1) 11/07/21 21:32 Total Bilirubin 0.40 mg/dL (0.2-1.0) 11/07/21 21:32 AST 13 Units/L (15-37) L 11/07/21 21:32 ALT 15 Units/L (12-78) 11/07/21 21:32 Alkaline Phosphatase 72 Units/L (46-116) 11/07/21 21:32 Total Protein 7.0 g/dL (6.4-8.2) 11/07/21 21:32 Albumin 3.3 g/dL (3.4-5.0) L 11/07/21 21:32 Globulin 3.7 g/dL (2.5-4.5) 11/07/21 21:32 Albumin/Globulin Ratio 0.9 Ratio (1.1-2.1) L 11/07/21 21:32 SARS CoV-2 RNA Rapid TERE Negative (NEGATIVE) 11/07/21 13:57 Review of Systems Constitutional: Other (gangrenous changes of the right second toe and at the base of the previous right great toe amputation ) Eyes: No Symptoms Reported ENT: No Symptoms Reported Respiratory: No Symptoms Reported Cardiovascular: No Symptoms Reported Gastrointestinal: No Symptoms Reported Genitourinary: No Symptoms Reported Musculoskeletal: Other (history of right great toe ray amputation ) Skin: No Symptoms Reported Neurological: No Symptoms Reported and Other (deaf since ) Physical Exam Vital Signs: Temperature 98.2 F Pulse Rate 55 Respiratory Rate 19 Blood Pressure [Right Arm] 148/68 Blood Pressure 128/60 O2 Sat by Pulse Oximetry 94 Oriented: Normal, Time, Person and Place Eyes: Normal Ear: Normal Nose: Normal Throat: Normal Respiratory: Clear Throughout Cardiovascular: Normal : Normal Auscultation: Bowel Sounds: Normal Palpation: Normal Tenderness: Normal Musculoskeletal: Right (right foot gangrenous changes as above ) Psychiatric: Normal Mood Description: Angry Affect: Depressed Speech Pattern: Unclear (due to history of deafness ) Assessment/Plan (1) Critical limb ischemia of right lower extremity with gangrene: Status: Acute Plan: Patient has returned after signing out against medical advice. He will be placed back on a Heparin drip and started on Lopressor 25 mg BID. He will be taken to the operating Suite tomorrow to try and re-establish the flow of the right leg is that has the gangrenous changes. There is a high likelihood that this may be unsuccessful and he may ultimately end up with an amputation of the right leg. Once we determine the outcome of the right leg he will need revascularization of the left leg as well secondary to the complete left common iliac occlusion. (2) Ischemic pain of right foot: Status: Acute (3) Critical limb ischemia of left lower extremity: Status: Acute Review H&P Reviewed: Yes Patient was examined?: Yes
[2021-11-08] MEDS ORDERED: K-DUR TAB 20 MEQ PO PRN (00:13)
[2021-11-08] MEDS ORDERED: POTASSIUM CHL 60 MEQ/NS 0.45% 500 ML IV PRN (00:13)
[2021-11-08] MEDS ORDERED: MICRO K EXTEN CAP 10 MEQ PO PRN (00:13)
[2021-11-08] MEDS ORDERED: POTASSIUM CHL 40 MEQ/NS 0.45% 500 ML IV PRN (00:13)
[2021-11-08] MEDS ORDERED: POTASSIUM CHLORIDE LIQ 20 MEQ UDC PO PRN (00:13)
[2021-11-08] MEDS ORDERED: KLOR-CON PO PRN (00:13)
[2021-11-08] MEDS: LR 1,000 ML IV 1,000 ML IV SCH ×2 (00:21→13:54)
[2021-11-08] MEDS: K-RIDER 10 MEQ/NS 100 ML 10 MEQ/100 ML BAG IV PRN ×2 (00:33→01:50)
[2021-11-08] MEDS: DILAUDID INJ IVP PRN ×4 (01:49→14:53)
--- NOTE | 2021-11-08 06:37 | RAD ---
HISTORYPRIOR TO SXSTUDYCHEST, 1 [id number]/07/2021.TECHNIQUEAP chest 2 images.FINDINGSCardiac and mediastinal contours are within normal limits. Lungs are hyperexpanded with stable interstitial opacities. No definite pleural effusion or pneumothorax.IMPRESSIONNo significant change in mild interstitial opacities with same differential as previously given.Electronically signed by: Geraldo Taylor (Nov 08, 2021 06:35:19)
[2021-11-08] MEDS: NICOTINE PATCH TD SCH (08:52)
[2021-11-08] MEDS ORDERED: LR 1,000 ML IV 1,000 ML IV ONE ×2 (09:23→11:54)
[2021-11-08] MEDS ORDERED: ANCEF 1 GRAM IV PREMIX* 2 G/100 ML BAG IV ONE (09:24)
[2021-11-08] MEDS ORDERED: FENTANYL VIAL INJ 250 mcg ONE (09:52)
[2021-11-08] MEDS ORDERED: BRIDION ONE (09:52)
[2021-11-08] MEDS ORDERED: OFIRMEV IV 1000 MG VIAL 1,000 MG/100 ML VIAL IV ONE (09:53)
[2021-11-08] MEDS ORDERED: ZEMURON 50 MG VIAL ONE (09:53)
[2021-11-08] MEDS ORDERED: HEPARIN SODIUM INJ 5000 UNITS ONE (09:54)
[2021-11-08] MEDS ORDERED: MARCAINE 0.5% ONE (09:54)
[2021-11-08] MEDS ORDERED: HEPARIN SODIUM IN D5W 75,000 UNITS/1,500 ML BAG ONE (09:54)
[2021-11-08] MEDS ORDERED: ZOFRAN INJ 4 MG VIAL ONE (10:10)
[2021-11-08] MEDS ORDERED: VERSED ONE (10:10)
[2021-11-08] MEDS ORDERED: QUELICIN (OR ANECTINE) ONE (10:10)
[2021-11-08] MEDS ORDERED: SUPRANE ONE (10:10)
[2021-11-08] MEDS ORDERED: DIPRIVAN VIAL ONE (10:10)
[2021-11-08] MEDS ORDERED: NS 1,000 ML IV 1,000 ML ONE (10:57)
[2021-11-08] MEDS ORDERED: BENADRYL INJ 50 MG VIAL IVP PRN (12:48)
[2021-11-08] MEDS ORDERED: ZOFRAN INJ 4 MG VIAL IVP PRN (12:48)
[2021-11-08] MEDS ORDERED: BARHEMSYS INJ IVP PRN (12:48)
[2021-11-08] MEDS ORDERED: REGLAN INJ 10 MG VIAL IVP PRN (12:48)
[2021-11-08] MEDS ORDERED: PHENERGAN INJ 25 MG IM PRN (12:48)
[2021-11-08] MEDS ORDERED: DILAUDID INJ ONE (13:14)
--- NOTE | 2021-11-08 13:14 | OR.IMMED ---
IMMEDIATE POST-OP NOTE Immediate Post-Op Note Pre-Op Diagnosis: limb threatening ischemia right foot with gangrene of second t oe Post-Op Diagnosis: same Procedure: Retrograde approach to cross complete total occlusion of the right tibial-peroneal trunk, popliteal artery and superficial femoral artery,atherectomy right tibial-peroneal trunk, popliteal artery and superficial femoral artery ,drug-coated balloon angioplasty of all of the above,covered stent placement of the mid right superficial femoral artery , stenting the right common iliac artery and right external iliac artery ,on table arteriogram ,Ray amputation right second toe Description of Procedure: see operative summary Surgeon/Application Services Manager: Edison Findings: complete total occlusion of the right superficial femoral artery and popliteal artery , three vessel run off right leg, severe stenosis right common iliac artery and right external iliac artery, complete total occlusion of the left common iliac artery , gangrene right second toe Specimens Removed: right second toe Estimated Blood Loss: < 100 cc Drains: NONE Complications: none Discharge Progress Notes: return to the ICU. Continue Heparin drip. Will assess how he does and plan intervention of the complete total occlusion left common iliac artery on Friday Condition: Stable Final Diagnosis: as above
[2021-11-08] MEDS: LOPRESSOR TAB 25 MG PO SCH ×3 (13:54→21:10)
[2021-11-08] MEDS: PERCOCET TAB 5/325 MG PO PRN ×2 (15:11→19:45)
[2021-11-08] MEDS: HEPARIN SODIUM IN D5W 25,000 UNITS/500 ML BAG IV PRN (21:11)
[2021-11-09] MEDS: LR 1,000 ML IV 1,000 ML IV SCH ×5 (04:48→18:38)
[2021-11-09] MEDS: PERCOCET TAB 5/325 MG PO PRN ×3 (04:48→18:01)
[2021-11-09] MEDS: DILAUDID INJ IVP PRN ×3 (06:21→19:47)
[2021-11-09] MEDS ORDERED: HEPARIN SODIUM INJ 5000 UNITS IVP ONE (08:46)
[2021-11-09] MEDS: LOPRESSOR TAB 25 MG PO SCH ×2 (09:23→21:00)
[2021-11-09] MEDS: NICOTINE PATCH TD SCH (09:23)
--- NOTE | 2021-11-09 09:38 | NOTE.SOAP ---
Soap Note Note for Day of Date of Exam: 11/09/21 Subjective Data Subjective Data: Lilia not examined by me today. Discussed with his nurse over the phone.Patient had a quiet night. No bleeding from other than the insertion site at the ankle or the toe amputation site right foot.He remains on Heparin anticoagulation and is doing well. Eating well. Objective Data Temperature: 98.3 F Pulse Rate: 64 Respiratory Rate: 20 Blood Pressure: 163/71 O2 Sat by Pulse Oximetry: 99 Objective Data: Excellent doppler signal of the posterior tibial artery on the right as reported by nursing Services. No bleeding. Right foot warm. Assessment Assessment: Postoperative day one after revascularization of the right leg requiring retrograde approach through the right posterior tibial artery with athrectomy and stenting of the right superficial femoral artery, drug coated balloon angioplasty of the tibial peroneal trunk and stenting of the right common iliac and right external iliac arteries. Doing well. Plan Plan: Continue on IV heparin. Will plan intervention of the left leg to include retrograde approach of the left common iliac artery complete total occlusion via the left groin and hopefully can stent this open wrist. Ankle-brachial index pre-op was 0.24 on the right and 0.25 on the left.
[2021-11-09] MEDS: ZOSYN VIAL 3.375 GRAMS 3.375 G in NS 100 ML IV + SPIKE MINIBAG* 100 ML IV SCH ×2 (17:28→21:00)
[2021-11-09] MEDS: HEPARIN SODIUM IN D5W 25,000 UNITS/500 ML BAG IV PRN (18:37)
[2021-11-10] MEDS: PERCOCET TAB 5/325 MG PO PRN ×3 (05:16→20:00)
[2021-11-10] MEDS: LR 1,000 ML IV 1,000 ML IV SCH ×3 (05:49→16:52)
[2021-11-10] MEDS: ZOSYN VIAL 3.375 GRAMS 3.375 G in NS 100 ML IV + SPIKE MINIBAG* 100 ML IV SCH ×3 (05:50→21:46)
[2021-11-10] MEDS: NICOTINE PATCH TD SCH (09:28)
[2021-11-10] MEDS: LOPRESSOR TAB 25 MG PO SCH ×2 (09:28→20:01)
[2021-11-10] MEDS: DILAUDID INJ IVP PRN (10:05)
--- NOTE | 2021-11-10 10:33 | DR.PROGNOT ---
Hospital Progress Notes - Progress Note for Day of: Progress Note Date: 11/10/21 - Chief Complaint Chief Complaint: s/p amputation RT 2nd toe . c/o severe pain RT foot . had low grade fever last night . - Past Medical Family Social History Past Med/Fam/Surg Hx: No changes since H&P Allergies: Allergies No Known Drug Allergies Allergy (Verified 11/05/21 15:45) - Review Of Systems ROS: No change since H&P - Vital Signs Vital Signs: Temperature 98.1 F Pulse Rate 75 Respiratory Rate 20 Blood Pressure [Right Arm] 148/68 Blood Pressure 186/79 O2 Sat by Pulse Oximetry 96 - Physical Exam Oriented: Normal, Time, Person, Place Eyes: Normal Ear: Normal Nose: Normal Throat: Normal Cardiovascular: Normal : Normal GI:Auscultation: Normal GI:Palpation: Normal GI: Tenderness: Normal Musculoskeletal: Right (right foot gangrenous changes as above) Psychiatric: Normal Mood Description: Calm Affect: Depressed Speech Pattern: Aphasic - Laboratory and Diagnostics Result Diagrams: 11/07/21 21:32 11/08/21 15:20 Labs: Laboratory WBC 6.4 X10^3/uL (3.6-10.0) 11/07/21 21:32 RBC 4.81 X10^6/uL (4.7-6.0) 11/07/21 21:32 Hgb 14.2 g/dL (13.5-18.0) 11/07/21 21:32 Hct 42.0 % (42.0-54.0) 11/07/21 21:32 MCV 87.3 fL (80.0-100.0) 11/07/21 21:32 MCH 29.5 pg (27.0-34.0) 11/07/21 21:32 MCHC 33.8 g/dL (33.0-35.0) 11/07/21 21:32 RDW 14.5 % (11.6-16.5) 11/07/21 21:32 Plt Count 196 X10^3/uL (150.0-450.0) 11/07/21 21:32 MPV 7.9 fL (7.4-11.0) 11/07/21 21:32 Neut % (Auto) 62.8 % (42.0-75.0) 11/07/21 21:32 Lymph % (Auto) 24.0 % (21.0-51.0) 11/07/21 21:32 [place] % (Auto) 10.8 % (0.0-13.0) 11/07/21 21:32 Eos % (Auto) 1.5 % (0.9-2.9) 11/07/21 21:32 Baso % (Auto) 0.9 % (0.2-1.0) 11/07/21 21:32 Neut # (Auto) 4.0 x10^3/uL (2.2-4.8) 11/07/21 21:32 Lymph # (Auto) 1.5 X10^3/uL (1.3-2.9) 11/07/21 21:32 [place] # (Auto) 0.7 x10^3/uL (0.3-0.8) 11/07/21 21:32 Eos # (Auto) 0.1 x10^3/uL (0.0-0.2) 11/07/21 21:32 Baso # (Auto) 0.1 X10^3/uL (0.0-0.1) 11/07/21 21:32 Absolute Nucleated RBC 0.1 /100WBC 11/07/21 21:32 PT 14.6 SECONDS (11.8-14.3) 11/07/21 15:48 INR Target Range - 11/07/21 15:48 INR 1.20 (0.8-1.3) 11/07/21 15:48 APTT 76.4 SECONDS (22.9-36.5) H 11/10/21 03:00 PTT Comment - 11/10/21 03:00 Sodium 140 mmol/L (136-145) 11/07/21 21:32 Corrected Sodium 141 mmol/L (136-145) 11/07/21 21:32 Potassium 3.8 mmol/L (3.5-5.1) 11/08/21 15:20 Chloride 104 mmol/L (98-107) 11/07/21 21:32 Carbon Dioxide 29.3 mmol/L (21-32) 11/07/21 21:32 BUN 9 mg/dL (7-18) 11/07/21 21:32 Creatinine 0.66 mg/dL (0.70-1.30) L 11/07/21 21:32 Est GFR (MDRD) Af Amer > 60 (>60) 11/07/21 21:32 Est GFR (MDRD) Non-Af > 60 (>60) 11/07/21 21:32 Glucose 125 mg/dL (65-99) H 11/07/21 21:32 Calcium 8.4 mg/dL (8.5-10.1) L 11/07/21 21:32 Corrected Calcium 9.0 mg/dL (8.5-10.1) 11/07/21 21:32 Magnesium 2.4 mg/dL (1.7-2.9) 11/07/21 21:34 Total Bilirubin 0.40 mg/dL (0.2-1.0) 11/07/21 21:32 AST 13 Units/L (15-37) L 11/07/21 21:32 ALT 15 Units/L (12-78) 11/07/21 21:32 Alkaline Phosphatase 72 Units/L (46-116) 11/07/21 21:32 Total Protein 7.0 g/dL (6.4-8.2) 11/07/21 21:32 Albumin 3.3 g/dL (3.4-5.0) L 11/07/21 21:32 Globulin 3.7 g/dL (2.5-4.5) 11/07/21 21:32 Albumin/Globulin Ratio 0.9 Ratio (1.1-2.1) L 11/07/21 21:32 SARS CoV-2 RNA Rapid TERE Negative (NEGATIVE) 11/07/21 13:57 Tissue Pathology To follow 11/08/21 12:33 - Assessment and Plan 1: severe ischemia RT foot with gangrenous changes forefoot . advanced PVD . on IV ABT . plan of care is as per Dr Hogan
[2021-11-10] MEDS: HEPARIN SODIUM IN D5W 25,000 UNITS/500 ML BAG IV PRN (13:33)
--- NOTE | 2021-11-10 16:02 | DR.OPNOTE ---
OP NOTE Pre-Op Diagnosis: Limb threatening ischemia right lower extremity Post-Op Diagnosis: same Procedure Date Date Of Procedure: 11/08/21 Procedure: This patient was taking to the operating suite and the entire right leg and the left groin prepped and draped in sterile fashion as well as the lower abdomen. Time out for the procedure was obtained. The patient was given IV sedation which was supervised by myself. Ultrasound was used to identify the posterior tibial artery of the right leg at the ankle and the skin overlying it infiltrated with 0. 5% Marcaine x 3 CC's. Ultrasound used to guide puncture of the right anterior tibial artery with a 16-gauge needle and a 0. 012 inch guidewire placed. Incision made over the guide wire and a 4 Fr slender sheath placed over the guide wire into the posterior tibial artery. Guidewire removed and the patient given 5000 units of intravenous Heparin. An additional 3000 units of heparin was given at 1 hour . Arteriogram carried out through the sheath confirming that we indeed were in the vehicle operator technician tibial artery with complete occlusion of the posterior artery artery just beyond the tibial peroneal trunk. At this point we placed a 0. 035 inch Advantage glidewire and a Trailblazer catheter over the guide wire .With this wire and Trailblazer catheter I was able to guide the guidewire all the way into the aorta. Guidewire was removed and blood aspirated easily through the Trailblazer catheter. Diagnostic aortogram carried out showing disease of the aorta which was expected based upon the CT scan. There was severe disease in two areas of stenosis of the right common iliac artery and the right external iliac artery. The left common iliac artery was occluded flush with the aorta. Through the Trailblazer catheter I placed a 0. 014 inch guidewire, removed the Trailblazer catheter and placed the [place] athrectomy device over the guide wire all the way from the tibial peroneal trunk to the right iliac artery. Athrectomy device was removed and over this wire we placed a 5 mm by 200 mm [place] [employer] [place] drug-coated balloon and expanded it for three minutes extending from the tibial peroneal artery into the distal superficial femoral artery .After three minutes this was deflated and then replaced with a 6 mm by 200 mm [place] [employer] [place] drug-coated balloon and we placed it just above the area previously treated and inflated it's for 3 minutes ,then deflated it. Finally a 7 mm by 200 mm [place] [employer] [place] drug-coated balloon was placed sending all the way into the distal right iliac artery and inflated for 3 minutes then deflated . Post-procedure arteriogram showed evidence of possible dissection in the mid superficial femoral artery as well as significant disease of the right iliac artery in 2 locations, proximal common iliac artery and pro ximal external iliac artery. Over the 0. 035 in Advantage glidewire I place a Viabahn 7 mm by 80 mm covered graft and inflated it. I then deployed a 7 mm by 57 mm [employer] [employer] balloon expandable stent across the common iliac stenosis and expanded it. I then placed a separate 7 mm by 57 mm [employer] [employer] balloon expandable stand across the external iliac stenosis and expanded it. Post-procedure arteriogram showed excellent flow through the iliac artery, the superficial femoral artery artery, popliteal artery and the tibial peroneal trunk with excellent run off by the anterior and posterior tibial arteries. All wires and devices were removed. The Slender sheath in the right posterior tibial artery was removed and pressure held over this area with a tibial band . Patient was given 30 mg of IV Protamine . Patient was taken to PACU good condition. Type of Anesthesia: Local (0. 5% marcaine ) Anesthesia Comment: plus MAC Findings: completely occluded right superficial femoral artery, popliteal artery and tibial peroneal trunk Specimen/Pathology: none Type of Fluids Used:: Lactated Ringers Total Amount of Fluid Infused:: 1000 cc Urine output: 800 cc EBL: <100 Complications:: none Needle/Sponge Count:: correct Disposition/Condition: Pt. tolerated procedure without difficulty. Extubated in the OR and taken to PACU in stable condition.
[2021-11-11] MEDS: PERCOCET TAB 5/325 MG PO PRN ×4 (02:37→20:28)
[2021-11-11 05:04] LABS: BASOPHILS # (AUTO) 0.1 X10^3/uL (0.0-0.1); BASOPHILS % (AUTO) 0.6 % (0.2-1.0); EOSINOPHILS # (AUTO) 0.1 x10^3/uL (0.0-0.2); EOSINOPHILS % (AUTO) 1.6 % (0.9-2.9); HEMATOCRIT 37.2 % (42.0-54.0); HEMOGLOBIN 12.5 g/dL (13.5-18.0); LYMPHOCYTES % (AUTO) 11.7 % (21.0-51.0); MEAN CORPUSCULAR HEMOGLOBIN 29.2 pg (27.0-34.0); MEAN CORPUSCULAR HGB CONC 33.7 g/dL (33.0-35.0); MEAN CORPUSCULAR VOLUME 86.9 fL (80.0-100.0); MEAN PLATELET VOLUME 8.4 fL (7.4-11.0); MONOCYTES # (AUTO) 1.1 x10^3/uL (0.3-0.8); MONOCYTES % (AUTO) 12.5 % (0.0-13.0); NEUTROPHILS # (AUTO) 6.5 x10^3/uL (2.2-4.8); NEUTROPHILS % (AUTO) 73.6 % (42.0-75.0); PLATELET COUNT 142 X10^3/uL (150.0-450.0); RED BLOOD COUNT 4.28 X10^6/uL (4.7-6.0); RED CELL DISTRIBUTION WIDTH 14.2 % (11.6-16.5); WHITE BLOOD COUNT 8.8 X10^3/uL (3.6-10.0)
[2021-11-11 05:18] LABS: BLOOD UREA NITROGEN 4 mg/dL (7-18); CALCIUM 8.3 mg/dL (8.5-10.1); CARBON DIOXIDE 25.4 mmol/L (21-32); CHLORIDE 103 mmol/L (98-107); COR NA(FOR HYPERGLY) 138 mmol/L (136-145); CREATININE 0.74 mg/dL (0.70-1.30); SODIUM 136 mmol/L (136-145); eGFR NON BLACK RACES > 60 (>60)
[2021-11-11] MEDS: ZOSYN VIAL 3.375 GRAMS 3.375 G in NS 100 ML IV + SPIKE MINIBAG* 100 ML IV SCH ×3 (05:26→21:56)
[2021-11-11] MEDS: LR 1,000 ML IV 1,000 ML IV SCH ×2 (05:26→18:30)
[2021-11-11] MEDS ORDERED: HEPARIN SODIUM INJ 5000 UNITS IVP ONE (06:23)
[2021-11-11] MEDS ORDERED: HEPARIN SODIUM INJ 5000 UNITS ONE (06:35)
--- NOTE | 2021-11-11 09:45 | DR.PROGNOT ---
Hospital Progress Notes - Progress Note for Day of: Progress Note Date: 11/11/21 - Chief Complaint Chief Complaint: still c/o rest pain RT foot s/p amputation RT 2nd toe . WBC 8.8..Hgb 12.5..BUN/Creat normal .. BS 188 . temp 98.7. on IV Hepatin and ABT . - Past Medical Family Social History Past Med/Fam/Surg Hx: No changes since H&P Allergies: Allergies No Known Drug Allergies Allergy (Verified 11/05/21 15:45) - Review Of Systems ROS: No change since H&P - Vital Signs Vital Signs: Temperature 98.7 F Pulse Rate 63 Respiratory Rate 13 Blood Pressure [Right Arm] 148/68 Blood Pressure 157/69 O2 Sat by Pulse Oximetry 98 - Physical Exam Oriented: Normal, Time, Person, Place Eyes: Normal Ear: Normal Nose: Normal Throat: Normal Cardiovascular: Normal : Normal GI:Auscultation: Normal GI:Palpation: Normal Musculoskeletal: Right (right foot gangrenous changes as above) Psychiatric: Normal Mood Description: Calm Affect: Depressed Speech Pattern: Aphasic - Laboratory and Diagnostics Result Diagrams: 11/11/21 04:35 11/11/21 04:35 Labs: Laboratory WBC 8.8 X10^3/uL (3.6-10.0) 11/11/21 04:35 RBC 4.28 X10^6/uL (4.7-6.0) L 11/11/21 04:35 Hgb 12.5 g/dL (13.5-18.0) L 11/11/21 04:35 Hct 37.2 % (42.0-54.0) L 11/11/21 04:35 MCV 86.9 fL (80.0-100.0) 11/11/21 04:35 MCH 29.2 pg (27.0-34.0) 11/11/21 04:35 MCHC 33.7 g/dL (33.0-35.0) 11/11/21 04:35 RDW 14.2 % (11.6-16.5) 11/11/21 04:35 Plt Count 142 X10^3/uL (150.0-450.0) L 11/11/21 04:35 MPV 8.4 fL (7.4-11.0) 11/11/21 04:35 Neut % (Auto) 73.6 % (42.0-75.0) 11/11/21 04:35 Lymph % (Auto) 11.7 % (21.0-51.0) L 11/11/21 04:35 [place] % (Auto) 12.5 % (0.0-13.0) 11/11/21 04:35 Eos % (Auto) 1.6 % (0.9-2.9) 11/11/21 04:35 Baso % (Auto) 0.6 % (0.2-1.0) 11/11/21 04:35 Neut # (Auto) 6.5 x10^3/uL (2.2-4.8) H 11/11/21 04:35 Lymph # (Auto) 1.0 X10^3/uL (1.3-2.9) L 11/11/21 04:35 [place] # (Auto) 1.1 x10^3/uL (0.3-0.8) H 11/11/21 04:35 Eos # (Auto) 0.1 x10^3/uL (0.0-0.2) 11/11/21 04:35 Baso # (Auto) 0.1 X10^3/uL (0.0-0.1) 11/11/21 04:35 Absolute Nucleated RBC 0.0 /100WBC 11/11/21 04:35 PT 14.6 SECONDS (11.8-14.3) 11/07/21 15:48 INR Target Range - 11/07/21 15:48 INR 1.20 (0.8-1.3) 11/07/21 15:48 APTT 60.0 SECONDS (22.9-36.5) H 11/11/21 04:35 PTT Comment - 11/11/21 04:35 Sodium 136 mmol/L (136-145) 11/11/21 04:35 Corrected Sodium 138 mmol/L (136-145) 11/11/21 04:35 Potassium 3.9 mmol/L (3.5-5.1) 11/11/21 04:35 Chloride 103 mmol/L (98-107) 11/11/21 04:35 Carbon Dioxide 25.4 mmol/L (21-32) 11/11/21 04:35 BUN 4 mg/dL (7-18) L 11/11/21 04:35 Creatinine 0.74 mg/dL (0.70-1.30) 11/11/21 04:35 Est GFR (MDRD) Af Amer > 60 (>60) 11/11/21 04:35 Est GFR (MDRD) Non-Af > 60 (>60) 11/11/21 04:35 Glucose 188 mg/dL (65-99) H 11/11/21 04:35 Calcium 8.3 mg/dL (8.5-10.1) L 11/11/21 04:35 Corrected Calcium 9.0 mg/dL (8.5-10.1) 11/07/21 21:32 Magnesium 2.4 mg/dL (1.7-2.9) 11/07/21 21:34 Total Bilirubin 0.40 mg/dL (0.2-1.0) 11/07/21 21:32 AST 13 Units/L (15-37) L 11/07/21 21:32 ALT 15 Units/L (12-78) 11/07/21 21:32 Alkaline Phosphatase 72 Units/L (46-116) 11/07/21 21:32 Total Protein 7.0 g/dL (6.4-8.2) 11/07/21 21:32 Albumin 3.3 g/dL (3.4-5.0) L 11/07/21 21:32 Globulin 3.7 g/dL (2.5-4.5) 11/07/21 21:32 Albumin/Globulin Ratio 0.9 Ratio (1.1-2.1) L 11/07/21 21:32 SARS CoV-2 RNA Rapid TERE Negative (NEGATIVE) 11/07/21 13:57 Tissue Pathology To follow 11/08/21 12:33 - Assessment and Plan 1: severe ischemia RT foot with gangrenous changes forefoot . advanced PVD . Pt is a smoker with previous vascular surgery on the leg. on IV ABT and Heparin . plan of care is as per Dr Hogan.
[2021-11-11] MEDS: NICOTINE PATCH TD SCH (09:57)
[2021-11-11] MEDS: LOPRESSOR TAB 25 MG PO SCH ×2 (09:57→20:28)
[2021-11-11] MEDS: HEPARIN SODIUM IN D5W 25,000 UNITS/500 ML BAG IV PRN (11:15)
[2021-11-11] MEDS: DILAUDID INJ IVP PRN (17:33)
[2021-11-12] MEDS: PERCOCET TAB 5/325 MG PO PRN ×2 (00:09→23:15)
[2021-11-12] MEDS ORDERED: HEPARIN SODIUM IN D5W 25,000 UNITS/500 ML BAG ONE (04:05)
[2021-11-12] MEDS: HEPARIN SODIUM IN D5W 25,000 UNITS/500 ML BAG IV PRN (04:32)
[2021-11-12 05:14] LABS: BASOPHILS % (AUTO) 0.6 % (0.2-1.0); EOSINOPHILS # (AUTO) 0.3 x10^3/uL (0.0-0.2); EOSINOPHILS % (AUTO) 3.4 % (0.9-2.9); HEMOGLOBIN 12.9 g/dL (13.5-18.0); LYMPHOCYTES # (AUTO) 1.5 X10^3/uL (1.3-2.9); LYMPHOCYTES % (AUTO) 18.1 % (21.0-51.0); MEAN CORPUSCULAR HEMOGLOBIN 29.1 pg (27.0-34.0); MEAN CORPUSCULAR HGB CONC 33.1 g/dL (33.0-35.0); MEAN CORPUSCULAR VOLUME 88.1 fL (80.0-100.0); MEAN PLATELET VOLUME 8.4 fL (7.4-11.0); MONOCYTES # (AUTO) 1.1 x10^3/uL (0.3-0.8); MONOCYTES % (AUTO) 13.2 % (0.0-13.0); NEUTROPHILS # (AUTO) 5.3 x10^3/uL (2.2-4.8); NEUTROPHILS % (AUTO) 64.7 % (42.0-75.0); PLATELET COUNT 163 X10^3/uL (150.0-450.0); RED BLOOD COUNT 4.42 X10^6/uL (4.7-6.0); RED CELL DISTRIBUTION WIDTH 14.6 % (11.6-16.5); WHITE BLOOD COUNT 8.2 X10^3/uL (3.6-10.0)
[2021-11-12] MEDS: ZOSYN VIAL 3.375 GRAMS 3.375 G in NS 100 ML IV + SPIKE MINIBAG* 100 ML IV SCH ×3 (05:22→21:12)
[2021-11-12 05:25] LABS: ALANINE AMINOTRANSFERASE 14 Units/L (12-78); ALBUMIN 2.7 g/dL (3.4-5.0); ALKALINE PHOSPHATASE 57 Units/L (46-116); ASPARTATE AMINO TRANSFERASE 10 Units/L (15-37); BLOOD UREA NITROGEN 4 mg/dL (7-18); CALCIUM 8.9 mg/dL (8.5-10.1); CARBON DIOXIDE 30.2 mmol/L (21-32); CHLORIDE 101 mmol/L (98-107); COR CA(FOR HYPOALB) 9.9 mg/dL (8.5-10.1); COR NA(FOR HYPERGLY) 139 mmol/L (136-145); CREATININE 0.74 mg/dL (0.70-1.30); SODIUM 138 mmol/L (136-145); TOTAL PROTEIN 6.8 g/dL (6.4-8.2); eGFR NON BLACK RACES > 60 (>60)
[2021-11-12] MEDS: DILAUDID INJ IVP PRN ×3 (08:15→20:00)
[2021-11-12] MEDS: LR 1,000 ML IV 1,000 ML IV SCH ×2 (08:50→21:05)
[2021-11-12] MEDS: LOPRESSOR TAB 25 MG PO SCH ×2 (09:28→21:12)
[2021-11-12] MEDS: NICOTINE PATCH TD SCH (09:28)
[2021-11-12] MEDS ORDERED: ANCEF 1 GRAM IV PREMIX* 2 G/100 ML BAG IV ONE (11:54)
[2021-11-12] MEDS ORDERED: HEPARIN SODIUM INJ 5000 UNITS ONE ×2 (11:54→13:13)
[2021-11-12] MEDS ORDERED: MARCAINE 0.5% ONE (11:54)
[2021-11-12] MEDS ORDERED: LR 1,000 ML IV 1,000 ML IV ONE (11:54)
[2021-11-12] MEDS ORDERED: HEPARIN SODIUM IN D5W 75,000 UNITS/1,500 ML BAG ONE (11:54)
[2021-11-12] MEDS ORDERED: FENTANYL VIAL INJ 100 mcg ONE (13:02)
[2021-11-12] MEDS ORDERED: KETALAR ONE (13:13)
[2021-11-12] MEDS ORDERED: VERSED ONE (13:13)
[2021-11-12] MEDS ORDERED: DIPRIVAN VIAL ONE (13:13)
[2021-11-12] MEDS: DIPRIVAN VIAL 20 ML ONE ×2 (15:44→17:33)
[2021-11-12] MEDS: HEPARIN SODIUM IN D5W 25,000 UNITS/500 ML BAG ONE ×6 (15:54→17:34)
[2021-11-12] MEDS: ACTIVASE CATHFLO ONE ×2 (16:25→17:33)
[2021-11-12] MEDS: NS 1,000 ML IV 1,000 ML ONE ×2 (16:25→17:34)
[2021-11-12] MEDS ORDERED: HEPARIN SODIUM IN D5W 25,000 UNITS/500 ML BAG INTRACATH PRN (17:25)
[2021-11-12] MEDS ORDERED: ACTIVASE CATHFLO 12 MG in NS 250 ML IV 228 ML INTRACATH ONE (17:25)
[2021-11-12] MEDS: ACTIVASE CATHFLO 12 MG in NS 250 ML IV 228 ML INTRACATH SCH (17:34)
--- NOTE | 2021-11-12 17:45 | OR.IMMED ---
IMMEDIATE POST-OP NOTE Immediate Post-Op Note Pre-Op Diagnosis: complete total occlusion of the left, iliac artery with ische alice left lower extremity Post-Op Diagnosis: same ,Plus clotted right superficial femoral artery with ischemic rightlower extremity Patient had difficult right leg intervention last . Procedure: ultrasound-guided puncture left common femoral artery, pre dilatation left common femoral artery ,stenting left common iliac artery and external iliac artery requiring two stents ,additional stents of proximal right and left iliac arteries required for plaque shifting and occlusion of both legs,puncture of right anterior tibial artery at the ankle with on table arteriogram and placement of EKOS thrombolytic catheter across the completely occluded left superficial femoral artery . TPA to run overnight and he will be taken back to the OR tomorrow and further intervention of the right leg . Description of Procedure: see operative summary Surgeon/Airport Operations Supervisor: tomy Findings: as above Specimens Removed: none Estimated Blood Loss: < 100 cc Drains: NONE Complications: none Discharge Progress Notes: patient returned to the ICU where he will undergo thrombolysis of the right lower extremity tonight. He will be returned to the or tomorrow for resolution of this problem Condition: Stable Final Diagnosis: bilateral lower extremity critical limb ischemia
[2021-11-12 18:12] LABS: BASOPHILS % (AUTO) 0.3 % (0.2-1.0); EOSINOPHILS # (AUTO) 0.1 x10^3/uL (0.0-0.2); EOSINOPHILS % (AUTO) 0.7 % (0.9-2.9); HEMATOCRIT 37.4 % (42.0-54.0); HEMOGLOBIN 12.4 g/dL (13.5-18.0); LYMPHOCYTES # (AUTO) 0.7 X10^3/uL (1.3-2.9); LYMPHOCYTES % (AUTO) 6.3 % (21.0-51.0); MEAN CORPUSCULAR HEMOGLOBIN 29.2 pg (27.0-34.0); MEAN CORPUSCULAR HGB CONC 33.2 g/dL (33.0-35.0); MEAN PLATELET VOLUME 8.4 fL (7.4-11.0); MONOCYTES # (AUTO) 1.2 x10^3/uL (0.3-0.8); MONOCYTES % (AUTO) 10.6 % (0.0-13.0); NEUTROPHILS # (AUTO) 9.6 x10^3/uL (2.2-4.8); NEUTROPHILS % (AUTO) 82.1 % (42.0-75.0); PLATELET COUNT 163 X10^3/uL (150.0-450.0); RED BLOOD COUNT 4.25 X10^6/uL (4.7-6.0); RED CELL DISTRIBUTION WIDTH 14.6 % (11.6-16.5); WHITE BLOOD COUNT 11.7 X10^3/uL (3.6-10.0)
[2021-11-12] MEDS: NS 500 ML IV 500 ML IV SCH (18:28)
[2021-11-12] MEDS: HEPARIN SODIUM IN D5W 25,000 UNITS/500 ML BAG INTRACATH SCH (19:00)
[2021-11-12 23:48] LABS: BASOPHILS # (AUTO) 0.1 X10^3/uL (0.0-0.1); BASOPHILS % (AUTO) 0.6 % (0.2-1.0); EOSINOPHILS % (AUTO) 0.4 % (0.9-2.9); HEMATOCRIT 35.5 % (42.0-54.0); HEMOGLOBIN 12.1 g/dL (13.5-18.0); LYMPHOCYTES # (AUTO) 1.2 X10^3/uL (1.3-2.9); LYMPHOCYTES % (AUTO) 11.2 % (21.0-51.0); MEAN CORPUSCULAR HEMOGLOBIN 29.4 pg (27.0-34.0); MEAN CORPUSCULAR VOLUME 86.5 fL (80.0-100.0); MEAN PLATELET VOLUME 8.5 fL (7.4-11.0); MONOCYTES # (AUTO) 1.3 x10^3/uL (0.3-0.8); MONOCYTES % (AUTO) 12.5 % (0.0-13.0); NEUTROPHILS # (AUTO) 7.9 x10^3/uL (2.2-4.8); NEUTROPHILS % (AUTO) 75.3 % (42.0-75.0); PLATELET COUNT 155 X10^3/uL (150.0-450.0); RED CELL DISTRIBUTION WIDTH 14.4 % (11.6-16.5); WHITE BLOOD COUNT 10.4 X10^3/uL (3.6-10.0)
[2021-11-13] MEDS: DILAUDID INJ IVP PRN ×4 (00:31→19:30)
[2021-11-13] MEDS: ACTIVASE CATHFLO 12 MG in NS 250 ML IV 228 ML INTRACATH SCH (03:29)
[2021-11-13] MEDS: LR 1,000 ML IV 1,000 ML IV SCH ×4 (04:09→22:52)
[2021-11-13 05:51] LABS: BASOPHILS % (AUTO) 0.4 % (0.2-1.0); EOSINOPHILS # (AUTO) 0.1 x10^3/uL (0.0-0.2); EOSINOPHILS % (AUTO) 0.7 % (0.9-2.9); HEMATOCRIT 37.8 % (42.0-54.0); HEMOGLOBIN 12.7 g/dL (13.5-18.0); LYMPHOCYTES # (AUTO) 1.2 X10^3/uL (1.3-2.9); MEAN CORPUSCULAR HEMOGLOBIN 29.3 pg (27.0-34.0); MEAN CORPUSCULAR HGB CONC 33.6 g/dL (33.0-35.0); MEAN CORPUSCULAR VOLUME 87.1 fL (80.0-100.0); MEAN PLATELET VOLUME 8.5 fL (7.4-11.0); MONOCYTES # (AUTO) 1.4 x10^3/uL (0.3-0.8); MONOCYTES % (AUTO) 14.5 % (0.0-13.0); NEUTROPHILS # (AUTO) 6.9 x10^3/uL (2.2-4.8); NEUTROPHILS % (AUTO) 72.4 % (42.0-75.0); PLATELET COUNT 153 X10^3/uL (150.0-450.0); RED BLOOD COUNT 4.34 X10^6/uL (4.7-6.0); RED CELL DISTRIBUTION WIDTH 14.1 % (11.6-16.5); WHITE BLOOD COUNT 9.6 X10^3/uL (3.6-10.0)
[2021-11-13] MEDS: ZOSYN VIAL 3.375 GRAMS 3.375 G in NS 100 ML IV + SPIKE MINIBAG* 100 ML IV SCH ×3 (06:07→21:19)
[2021-11-13] MEDS: NS 500 ML IV 500 ML IV SCH (08:45)
[2021-11-13] MEDS: LOPRESSOR TAB 25 MG PO SCH ×2 (08:50→20:30)
[2021-11-13] MEDS: NICOTINE PATCH TD SCH (09:17)
[2021-11-13] MEDS: PERCOCET TAB 5/325 MG PO PRN ×2 (09:17→20:30)
[2021-11-13 13:03] LABS: BASOPHILS % (AUTO) 0.5 % (0.2-1.0); EOSINOPHILS # (AUTO) 0.1 x10^3/uL (0.0-0.2); EOSINOPHILS % (AUTO) 0.6 % (0.9-2.9); HEMATOCRIT 33.5 % (42.0-54.0); HEMOGLOBIN 11.5 g/dL (13.5-18.0); LYMPHOCYTES # (AUTO) 1.1 X10^3/uL (1.3-2.9); LYMPHOCYTES % (AUTO) 11.8 % (21.0-51.0); MEAN CORPUSCULAR HEMOGLOBIN 29.6 pg (27.0-34.0); MEAN CORPUSCULAR HGB CONC 34.2 g/dL (33.0-35.0); MEAN CORPUSCULAR VOLUME 86.6 fL (80.0-100.0); MEAN PLATELET VOLUME 8.4 fL (7.4-11.0); MONOCYTES # (AUTO) 1.4 x10^3/uL (0.3-0.8); MONOCYTES % (AUTO) 15.5 % (0.0-13.0); NEUTROPHILS # (AUTO) 6.6 x10^3/uL (2.2-4.8); NEUTROPHILS % (AUTO) 71.6 % (42.0-75.0); PLATELET COUNT 146 X10^3/uL (150.0-450.0); RED BLOOD COUNT 3.87 X10^6/uL (4.7-6.0); RED CELL DISTRIBUTION WIDTH 14.3 % (11.6-16.5); WHITE BLOOD COUNT 9.2 X10^3/uL (3.6-10.0)
[2021-11-13] MEDS: HEPARIN SODIUM IN D5W 25,000 UNITS/500 ML BAG INTRACATH SCH (13:50)
[2021-11-13] MEDS ORDERED: MARCAINE 0.5% ONE (14:25)
[2021-11-13] MEDS ORDERED: HEPARIN SODIUM INJ 5000 UNITS ONE (14:25)
[2021-11-13] MEDS ORDERED: HEPARIN SODIUM IN D5W 75,000 UNITS/1,500 ML BAG ONE (14:26)
[2021-11-13] MEDS ORDERED: FENTANYL VIAL INJ 100 mcg ONE (14:38)
[2021-11-13] MEDS ORDERED: ANCEF 1 GRAM IV PREMIX* 2 G/100 ML BAG IV ONE (15:26)
[2021-11-13] MEDS ORDERED: LR 1,000 ML IV 1,000 ML IV ONE (15:26)
[2021-11-13] MEDS ORDERED: VERSED ONE (16:05)
[2021-11-13] MEDS ORDERED: DIPRIVAN VIAL ONE (16:05)
[2021-11-13] MEDS ORDERED: KETALAR ONE (16:05)
[2021-11-13] MEDS ORDERED: BENADRYL INJ 50 MG VIAL IVP PRN (18:41)
[2021-11-13] MEDS ORDERED: ZOFRAN INJ 4 MG VIAL IVP PRN (18:41)
[2021-11-13] MEDS ORDERED: BARHEMSYS INJ IVP PRN (18:41)
[2021-11-13] MEDS ORDERED: PHENERGAN INJ 25 MG IM PRN (18:41)
[2021-11-13] MEDS ORDERED: DILAUDID INJ IVP PRN (18:41)
[2021-11-13] MEDS ORDERED: REGLAN INJ 10 MG VIAL IVP PRN (18:41)
--- NOTE | 2021-11-13 19:19 | OR.IMMED ---
IMMEDIATE POST-OP NOTE Immediate Post-Op Note Pre-Op Diagnosis: Bilateral lower extremity critical ischemia after bilateral pe ripheral vascular interventions Post-Op Diagnosis: as above, stenosis of distal left external iliac artery ,complete total occlusion left mid superficial femoral artery with reconstitution of popliteal artery and two vessel runoff via the left posterior tibial and left peroneal arteries, stenosis right external iliac artery ,stenosis proximal right superficial femoral Gortex stent ,clot inside midportion [place] stent right superficial femoral artery ,stenosis proximal right anterior tibial artery Procedure: bilateral lower extremity on table arteriogram, diagnostic aortogram, balloon angioplasty distal left external iliac stent, balloon angioplasty right external iliac artery and stent, angioplasty right superficial femoral artery Go rtex coverned stent, angioplasty right proximal anterior tibial artery Description of Procedure: see operative summary Surgeon/Pharmacology Teacher: Edison Findings: see operative summary Specimens Removed: none Estimated Blood Loss: 100 cc Drains: NONE Complications: none Progress Notes: both feet warm with doppler signals at the ankles, ischemic looking right foot Discharge Progress Notes: to ICU , Begin oral anticoagulation
[2021-11-13 20:14] LABS: BASOPHILS % (AUTO) 0.4 % (0.2-1.0); EOSINOPHILS % (AUTO) 0.3 % (0.9-2.9); HEMATOCRIT 34.2 % (42.0-54.0); HEMOGLOBIN 11.3 g/dL (13.5-18.0); MEAN CORPUSCULAR HEMOGLOBIN 28.8 pg (27.0-34.0); MEAN CORPUSCULAR VOLUME 87.5 fL (80.0-100.0); MEAN PLATELET VOLUME 8.4 fL (7.4-11.0); NEUTROPHILS # (AUTO) 9.4 x10^3/uL (2.2-4.8); NEUTROPHILS % (AUTO) 75.3 % (42.0-75.0); PLATELET COUNT 156 X10^3/uL (150.0-450.0); RED BLOOD COUNT 3.91 X10^6/uL (4.7-6.0); RED CELL DISTRIBUTION WIDTH 14.6 % (11.6-16.5); WHITE BLOOD COUNT 12.5 X10^3/uL (3.6-10.0)
[2021-11-14] MEDS: LR 1,000 ML IV 1,000 ML IV SCH ×3 (04:29→23:58)
[2021-11-14] MEDS: ZOSYN VIAL 3.375 GRAMS 3.375 G in NS 100 ML IV + SPIKE MINIBAG* 100 ML IV SCH ×3 (05:43→21:01)
[2021-11-14] MEDS: PERCOCET TAB 5/325 MG PO PRN ×2 (07:16→21:06)
[2021-11-14] MEDS: LOPRESSOR TAB 25 MG PO SCH ×2 (09:28→21:01)
[2021-11-14] MEDS: NICOTINE PATCH TD SCH (09:29)
[2021-11-14 09:32] VITALS: BMI 29.7
--- NOTE | 2021-11-14 11:14 | DR.OPNOTE ---
OP NOTE Pre-Op Diagnosis: complete total occlusion left common and left external iliac arteries. Post-Op Diagnosis: as above, flow to right leg now occluded at distal end of right iliac stent Procedure Date Date Of Procedure: 11/12/21 Procedure: PROCEDURE : Stenting left common and left external iliac arteries ,stenting proximal iliac arteries bilaterally ,placement of EKOS catheter via the right anterior tibial artery all the way to the distal right external iliac artery, common femoral artery and proximal superficial femoral artery for thrombolysis overnight . NARRATIVE : This patient was seen for bilateral severe ischemia with tissue loss of the right second toe requiring intervention of the right leg to include atherectomy and drug-coated balloon angioplasty of the entire right popliteal and superficial femoral arteries with drug-coated balloon angioplasty and stenting of the right common and right external iliac arteries. At that time the right second toe was amputated and the wound left open. Patient known to have ankle brachial index of 0.24 on this side and known to have complete total occlusion of the left common and left external iliac arteries with ankle brachial index on the left side of 0. 25 with no tissue loss to this point on the left . He was taken to the operating suite and the left groin ,left leg and entire right leg and right groin all prepped and draped in sterile fashion. Time out for the procedure obtained. He was given intravenous sedation which was supervised by myself .Ultrasound used to identify the left common femoral artery. There was no flow in it. The skin overlying it infiltrated with 0. 5% Marcaine and ultrasound used to guide puncture of the left common femoral artery and a 0. 012 inch wire placed. Incision made over the wire at the skin level and the micro sheath placed into the left common femoral artery. The small wire exchanged for a 0.035 inch Advantage glidewire and the Microsheath exchanged for a 5 Vincentian vascular sheath . Guidewire was placed all the way through the occlusion to the cap where the iliac artery on the left side entered the aorta. I placed a 0. 035 inch Trailblazer catheter over the wire but still could not get through the cap. I then placed a 0. 018 inch Trailblazer catheter inside the 0. 035 inch Trailblazer and placed a 30 gram weighted wire which was 0. 018 inch and used it to get through the cap into the aorta. The Trailblazer was placed into the aorta and aortogram carried out showing us to be in the aorta with run off down the right side through the previous stents. A 7 mm by 57 mm stent was deployed across the left common iliac artery and expanded with a 7 mm balloon. I then placed a 7 mm by 120 mm [place] drug-eluting stent with overlap of 1 cm and covering the left external iliac artery and ballooned it open with the 7 mm balloon. Repeat aortogram did not show good flow down either iliac artery and I suspected there had been some plaque shifting. At this point I used ultrasound to identify the right common femoral artery and I infiltrated the skin overlying it with 0. 5% Marcaine and used ultrasound to puncture the right common femoral artery and placed a 0. 012 inch wire and a micro sheath. The small wire exchanged for the 0. 035 inch wire which was extended into the aorta. The micro sheath exchanged for a 5 Vincentian vascular sheath . I then place a 8 mm by 37 mm stent on the right side proximally and into the aorta and a 7 mm by 37 mm stent of the right common iliac artery proximally into the aorta and ballooned these opened with kissing balloons. Once this was done repeat aortogram carryout showing good flow through both iliac vessels. Arteriogram of the right lower extremity showed disease vs. clot in the right external iliac artery distal to the stent extending into the proximal common femoral artery and there was no flow down the right superficial femoral artery which had been stented open with a [place]-J[place] stent. At this point ultrasound was used to identify the right anterior artery at the ankle. Ultrasound used to guide puncture of this with placement of a 0. 0 12-inch wire. Microsheath placed over this wire into the anterior tibial artery and on table arteriogram c onfirmed that we were in the anterior tibial artery. At this point we exchanged the wire for a 0. 035 Advantage guide wire taking it all the way through the anterior tibial artery, the tibial peroneal trunk ,popliteal artery and superficial femoral artery all the way into the aorta. I placed the EKOS catheter over the guide wire into the aorta, removed the guide wire and exchanged it for the core vibration device of EKOS which was inserted through the catheter and secured. The patient was bolused with 3 mg of TPA and infusion of 1 mg an hour of TPA set up as was Heparin at 500 units per hour and normal saline coolant at 30 cc's an hour. The EKOS catheter connected to the vibration device and it was turned on. Additional Heparin was run through the left femoral artery sheath at 500 units per hour as well. Dressings applied in the patient taken to the ICU for care and infusion of TPA over the next 24 hours. Type of Anesthesia: Local (0.5% MArcaine) Anesthesia Comment: plus MAC Findings: Complete total occlusion of the left common iliac and left external iliac arteries , plaque shifting of the distal aortic plaque requiring placement of proximal stents of both iliac arteries extending into the aorta ,complete occlusion to flow of the right common femoral artery and right prox imal [place]-J[place] stent Type of Fluids Used:: Lactated Ringers Total Amount of Fluid Infused:: 500 cc Urine output: 400 EBL: < 100 cc Drains/Tubes Placed: None Hardware: b/l iliac stents placed , temporary plcement right leg arterial EKOS catheter for TPA infusion Complications:: none Needle/Sponge Count:: correct Disposition/Condition: Pt. tolerated procedure without difficulty. Taken to ICU in stable condition.
--- NOTE | 2021-11-14 15:19 | DR.OPNOTE ---
OP NOTE Pre-Op Diagnosis: b/l severe LE ischemia Post-Op Diagnosis: same Procedure Date Date Of Procedure: 11/13/21 Procedure: PROCEDURE : Diagnostic aortogram, , bilateral diagnostic lower extremity arteriograms , angioplasty left external iliac artery, angioplasty right external iliac artery ,angioplasty right superficial femoral artery ,angioplasty right anterior tibial artery NARRATIVE : see previous operative reports. The patient has been undergoing thrombolytic therapy overnight of the right leg with TPA .He has a sheath in each common femoral artery and a sheath in the right anterior tibial artery at the ankle. He was taken to the operative suite and placed in the Supine position. Both legs prepped and draped in sterile fashion. He was given intravenous sedation which was supervised by myself. The EKOS catheter was removed TPA Had been turned off 2 hours before the procedure. Low-level Heparin drip had been continued. The patient was given 5,000 units of intravenous heparin. Diagnostic aortogram carried out through the right femoral sheath showing the aorta to be patent with good flow through the iliac stents on both sides. There was noted significant stenosis of both external iliac arteries just beyond the stents extending towards both common femoral arteries. The left external iliac artery and common femoral artery were ballooned open with a 7 mmx 80 mm [place] balloon. This was held open for 1 minute. On table arteriogram showed results of the left external iliac artery with good flow through the right superficial femoral artery proximally after the left common femoral sheath had been removed. The left superficial femoral artery was completely occluded distally with reconstitution of the popliteal artery and two vessel runoff by the posterior tibial and peroneal artery. The left anterior tibial artery was included shortly after takeoff. Arteriogram carried out of the right side showing the right common iliac and external iliac stents to be open. There was a significant area of occlusion of the external iliac artery on the right side just distal to the stents extending into the right common femoral artery with no flow into the [place] covered stent in the proximal superficial femoral artery. The external iliac artery on the right side was then ballooned open with a 7 mm by 80 mm [place] balloon. Repeat arteriogram showed excellent flow into the right side and the [place]-J[place] stent had some disease in the mid portion of the [place] -judson stent. The right superficial femoral artery with the Gortex stent in place was ballooned open with a 7 mm by 150 mm [place] balloon. Repeat arteriogram showed excellent flow all the way through the superficial femoral artery into the right popliteal artery with evidence of narrowing the anterior tibial artery just beyond it's take off with good flow via the right posterior tibial artery with significant collateral flow through the right calf. From the sheath at the right ankle in the anterior tibial artery a 4 mm by 80mm [place] balloon was placed in the anterior tibial artery and ballooned open with this. Repeat arteriogram showed excellent flow all the way to the right ankle. Left groin sheath had been discontinued and pressure was held here until the bleeding stops. Right groin sheath had the puncture in the femoral artery closed with an Angio seal device. The right anterior tibial sheath was removed and pressure held over this area until the bleeding stopped. The patient was returned to the ICU for continued care . Type of Anesthesia: Local Anesthesia Comment: MAC Findings: flow reestablish through the left common and external iliac arteries after stenting with partial occlusion between the left external iliac stent and the left common femoral artery ,complete total occlusion left superficial femoral artery with reconstitution of the popliteal artery and two vessel runoff via the left posterior tibial and peroneal arteries . [place] anterior tibial artery is occluded after its take off . After EKOS thrombolysis overnight of the occluded right superficial femoral artery ,the right iliac artery is patent with stents in place and occlusion of the distal right external iliac artery just beyond the stent and into the right common femoral artery with occlusion of the proximal Gortex stent in the right superficial femoral artery . All the above verified at beginning of case. See dictation for ultimate results. Specimen/Pathology: none Type of Fluids Used:: Lactated Ringers Total Amount of Fluid Infused:: 750 cc Urine output: 400 cc EBL: 100 cc Drains/Tubes Placed: None Complications:: none Needle/Sponge Count:: correct Disposition/Condition: Pt. tolerated procedure without difficulty. Taken to ICU in stable condition.
[2021-11-14 15:50] LABS: ALANINE AMINOTRANSFERASE 16 Units/L (12-78); ALBUMIN 2.3 g/dL (3.4-5.0); ALKALINE PHOSPHATASE 51 Units/L (46-116); ASPARTATE AMINO TRANSFERASE 45 Units/L (15-37); BLOOD UREA NITROGEN 8 mg/dL (7-18); CARBON DIOXIDE 25.7 mmol/L (21-32); CHLORIDE 102 mmol/L (98-107); COR CA(FOR HYPOALB) 9.4 mg/dL (8.5-10.1); COR NA(FOR HYPERGLY) 136 mmol/L (136-145); CREATININE 0.56 mg/dL (0.70-1.30); SODIUM 135 mmol/L (136-145); TOTAL PROTEIN 6.1 g/dL (6.4-8.2); eGFR NON BLACK RACES > 60 (>60)
--- NOTE | 2021-11-14 20:42 | NOTE.SOAP ---
Soap Note Note for Day of Date of Exam: 11/14/21 Subjective Data Subjective Data: Status post complex arterial interventions both lower extremities extremities .S/p amputation right second toe .still complaining of significant pain right foot . Objective Data Temperature: 99.5 F Pulse Rate: 78 Respiratory Rate: 18 Blood Pressure: 146/63 O2 Sat by Pulse Oximetry: 98 Objective Data: Left groin puncture without hematoma .Left foot warm with biphasic posterior tibial Doppler signal status post stenting of complete total occlusion left common iliac and left external iliac arteries .Right leg warm except for the right foot. Some mottling of the right foot. Biphasic signal in the right posterior tibial artery .S/P athrectomy and angioplasty of the right popliteal and superficial femoral arteries with stenting of the right common iliac and external iliac arteries , as well as covered stent placement right SFA. Hbg=11.3, WBC=12.5, Cr=0.56 Assessment Assessment: Severe ischemia both lower extremities. Left leg appears to be stable and improved after resolvong inflow occlusion.Known to have left superficial femoral artery complete total occlusion with reconstitution of the left popliteal artery . This may require intervention in the future . Right foot still may require amputation. Will begin Eliquis . Plan Plan: As per assessment above.
[2021-11-14] MEDS: COLACE CAP 100 MG PO SCH (21:01)
[2021-11-14] MEDS: MILK OF MAGNESIA PO SCH (21:05)
[2021-11-14] MEDS: ELIQUIS PO SCH (21:15)
[2021-11-15] MEDS: LR 1,000 ML IV 1,000 ML IV SCH ×4 (04:18→22:49)
[2021-11-15] MEDS: PERCOCET TAB 5/325 MG PO PRN ×2 (05:17→14:05)
[2021-11-15] MEDS: ZOSYN VIAL 3.375 GRAMS 3.375 G in NS 100 ML IV + SPIKE MINIBAG* 100 ML IV SCH ×3 (05:17→21:41)
[2021-11-15 05:50] LABS: BASOPHILS # (AUTO) 0.1 X10^3/uL (0.0-0.1); BASOPHILS % (AUTO) 0.4 % (0.2-1.0); EOSINOPHILS # (AUTO) 0.1 x10^3/uL (0.0-0.2); EOSINOPHILS % (AUTO) 0.4 % (0.9-2.9); HEMATOCRIT 30.7 % (42.0-54.0); HEMOGLOBIN 10.3 g/dL (13.5-18.0); LYMPHOCYTES % (AUTO) 7.7 % (21.0-51.0); MEAN CORPUSCULAR HEMOGLOBIN 29.1 pg (27.0-34.0); MEAN CORPUSCULAR HGB CONC 33.7 g/dL (33.0-35.0); MEAN CORPUSCULAR VOLUME 86.5 fL (80.0-100.0); MONOCYTES # (AUTO) 1.6 x10^3/uL (0.3-0.8); MONOCYTES % (AUTO) 12.9 % (0.0-13.0); NEUTROPHILS # (AUTO) 9.8 x10^3/uL (2.2-4.8); NEUTROPHILS % (AUTO) 78.6 % (42.0-75.0); PLATELET COUNT 159 X10^3/uL (150.0-450.0); RED BLOOD COUNT 3.55 X10^6/uL (4.7-6.0); RED CELL DISTRIBUTION WIDTH 14.2 % (11.6-16.5); WHITE BLOOD COUNT 12.5 X10^3/uL (3.6-10.0)
[2021-11-15 06:05] LABS: ALANINE AMINOTRANSFERASE 24 Units/L (12-78); ALBUMIN 2.4 g/dL (3.4-5.0); ALKALINE PHOSPHATASE 55 Units/L (46-116); ASPARTATE AMINO TRANSFERASE 82 Units/L (15-37); BLOOD UREA NITROGEN 9 mg/dL (7-18); CALCIUM 8.3 mg/dL (8.5-10.1); CARBON DIOXIDE 27.5 mmol/L (21-32); CHLORIDE 100 mmol/L (98-107); COR CA(FOR HYPOALB) 9.6 mg/dL (8.5-10.1); COR NA(FOR HYPERGLY) 136 mmol/L (136-145); CREATININE 0.56 mg/dL (0.70-1.30); SODIUM 135 mmol/L (136-145); TOTAL PROTEIN 6.6 g/dL (6.4-8.2); eGFR NON BLACK RACES > 60 (>60)
[2021-11-15] MEDS: DILAUDID INJ IVP PRN (08:01)
[2021-11-15] MEDS: NICOTINE PATCH TD SCH (09:27)
[2021-11-15] MEDS: LOPRESSOR TAB 25 MG PO SCH ×2 (09:28→20:22)
[2021-11-15] MEDS: ELIQUIS PO SCH ×2 (09:28→20:22)
[2021-11-15] MEDS: COLACE CAP 100 MG PO SCH (20:22)
[2021-11-15] MEDS: MILK OF MAGNESIA PO SCH (20:22)
--- NOTE | 2021-11-15 23:45 | NOTE.SOAP ---
Soap Note Note for Day of Date of Exam: 11/15/21 Subjective Data Subjective Data: Still c/o right foot pain , but left foot is also tender after complicated revascularizaztion of both legs for critical limb ischemia and right foot also with gangrene of second toe requiring amputation of that toe Objective Data Temperature: 98.4 F Pulse Rate: 74 Respiratory Rate: 17 Blood Pressure: 180/76 O2 Sat by Pulse Oximetry: 99 Objective Data: Groin needle sticks with no further bleeding. No hematoma either groin . Left foot warm with biphasic posterior tibial artery by Doppler . Rght foot is warmer but tender to the touch. Biphasic posterior tibial artery signal on the right Still with Dusky appearance to the skin of the foot Assessment Assessment: critical limb ischemia both extremities. Left leg appears to be stable. Right leg still may require amputation Plan Plan: begin Eliquis BID. Can you IV antibiotics. Follow right leg carefully.
[2021-11-16] MEDS: LR 1,000 ML IV 1,000 ML IV SCH ×3 (04:04→16:04)
[2021-11-16] MEDS: PERCOCET TAB 5/325 MG PO PRN ×4 (04:29→21:20)
[2021-11-16] MEDS: ZOSYN VIAL 3.375 GRAMS 3.375 G in NS 100 ML IV + SPIKE MINIBAG* 100 ML IV SCH ×3 (05:31→21:01)
[2021-11-16] MEDS: DILAUDID INJ IVP PRN ×2 (06:17→17:45)
[2021-11-16] MEDS: NICOTINE PATCH TD SCH (08:23)
[2021-11-16] MEDS: ELIQUIS PO SCH ×2 (08:24→20:54)
[2021-11-16] MEDS: LOPRESSOR TAB 25 MG PO SCH ×2 (08:24→20:54)
--- NOTE | 2021-11-16 15:16 | NOTE.SOAP ---
Soap Note Note for Day of Date of Exam: 11/16/21 Subjective Data Subjective Data: Stable after re vascularization of both LE with complex re- vascularization scenarios. Objective Data Temperature: 98.6 F Pulse Rate: 72 Respiratory Rate: 26 Blood Pressure: 133/67 O2 Sat by Pulse Oximetry: 96 Objective Data: Both groin puncture sites are healed. Excellent palpable pulses both groins. Left fo0t warm with biphasic doppler signal left posterior tibial artery. Right foot warming up but with superficial ecchymosis and biphasic doppler signal right posterior tibial artery Assessment Assessment: Revascularization left leg successful. May need athrectomy and angioplasty left SFA in the future but for now flow is markedly improved left foot and left above knee amputation avoided. Right leg revascularization successful to avoid right above knee amputation but may need right below knee amputation. Will continue to observe. Plan Plan: As above. Continue Eliquis and aspirin. Seek placement for rehab.
[2021-11-16] MEDS: COLACE CAP 100 MG PO SCH (20:53)
[2021-11-16] MEDS: MILK OF MAGNESIA PO SCH (20:54)
[2021-11-17] MEDS: LR 1,000 ML IV 1,000 ML IV SCH ×4 (04:23→18:33)
[2021-11-17] MEDS: ZOSYN VIAL 3.375 GRAMS 3.375 G in NS 100 ML IV + SPIKE MINIBAG* 100 ML IV SCH ×3 (05:00→21:01)
[2021-11-17] MEDS: PERCOCET TAB 5/325 MG PO PRN (05:00)
[2021-11-17 06:45] LABS: BASOPHILS # (AUTO) 0.1 X10^3/uL (0.0-0.1); BASOPHILS % (AUTO) 0.5 % (0.2-1.0); EOSINOPHILS # (AUTO) 0.1 x10^3/uL (0.0-0.2); EOSINOPHILS % (AUTO) 0.6 % (0.9-2.9); HEMATOCRIT 29.7 % (42.0-54.0); LYMPHOCYTES # (AUTO) 0.9 X10^3/uL (1.3-2.9); LYMPHOCYTES % (AUTO) 6.1 % (21.0-51.0); MEAN CORPUSCULAR HEMOGLOBIN 29.2 pg (27.0-34.0); MEAN CORPUSCULAR HGB CONC 33.8 g/dL (33.0-35.0); MEAN CORPUSCULAR VOLUME 86.4 fL (80.0-100.0); MEAN PLATELET VOLUME 8.2 fL (7.4-11.0); MONOCYTES # (AUTO) 1.5 x10^3/uL (0.3-0.8); MONOCYTES % (AUTO) 10.4 % (0.0-13.0); NEUTROPHILS # (AUTO) 11.5 x10^3/uL (2.2-4.8); NEUTROPHILS % (AUTO) 82.4 % (42.0-75.0); PLATELET COUNT 247 X10^3/uL (150.0-450.0); RED BLOOD COUNT 3.44 X10^6/uL (4.7-6.0); RED CELL DISTRIBUTION WIDTH 14.1 % (11.6-16.5)
[2021-11-17 07:08] LABS: BLOOD UREA NITROGEN 9 mg/dL (7-18); CALCIUM 8.3 mg/dL (8.5-10.1); CARBON DIOXIDE 26.7 mmol/L (21-32); CHLORIDE 99 mmol/L (98-107); COR NA(FOR HYPERGLY) 135 mmol/L (136-145); CREATININE 0.58 mg/dL (0.70-1.30); HDL CHOLESTEROL 23 mg/dL (40-60); SODIUM 134 mmol/L (136-145); eGFR NON BLACK RACES > 60 (>60)
[2021-11-17 07:09] LABS: CREATINE KINASE 2220 Units/L (39-308)
[2021-11-17] MEDS: ASPIRIN 81 MG CHEWTAB PO SCH (09:11)
[2021-11-17] MEDS: ELIQUIS PO SCH ×2 (09:11→20:31)
[2021-11-17] MEDS: NICOTINE PATCH TD SCH (09:12)
[2021-11-17] MEDS: LOPRESSOR TAB 25 MG PO SCH ×2 (09:12→20:31)
[2021-11-17] MEDS ORDERED: PHENERGAN INJ 25 MG IM PRN (11:10)
[2021-11-17] MEDS ORDERED: PROTONIX TAB 40 MG PO ONE (11:10)
[2021-11-17] MEDS: ZOFRAN INJ 4 MG VIAL IVP PRN ×2 (11:22→20:32)
[2021-11-17] MEDS ORDERED: PROTONIX INJ 40 MG VIAL IVP ONE (12:00)
[2021-11-17] MEDS: DILAUDID INJ IVP PRN (14:56)
[2021-11-17] MEDS: COLACE CAP 100 MG PO SCH (20:31)
[2021-11-17] MEDS: MILK OF MAGNESIA PO SCH (20:31)
--- NOTE | 2021-11-17 21:04 | NOTE.SOAP ---
Soap Note Note for Day of Date of Exam: 11/17/21 Subjective Data Subjective Data: Continues on Eliquis. Has remained stable . Still c/o pain of the right foot. S/Om complex revascularization of both LE. Left foot without problems .Blood pressure under control with metoprolol . Objective Data Temperature: 99.8 F Pulse Rate: 74 Respiratory Rate: 18 Blood Pressure: 135/59 O2 Sat by Pulse Oximetry: 95 Objective Data: Left foot warm with excellent triphasic Doppler signal in left posterior tibial artery . FRight foot now warm. Excellent doppler signal in right posterior tibial artery. Skin right foot with evidence of ecchymosis. Dry escahr at site of the right 2nd toe amputation . 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 Assessment Assessment: Right foot is responding and improving. My concern is that even if the right foot heals you have mobility problems. He will probably have Mobility problems if I perform right below knee amputation. Plan Plan: Will continue present treatment. Will discuss with his sister.
[2021-11-18] MEDS: ZOSYN VIAL 3.375 GRAMS 3.375 G in NS 100 ML IV + SPIKE MINIBAG* 100 ML IV SCH ×3 (05:19→21:47)
[2021-11-18] MEDS: LR 1,000 ML IV 1,000 ML IV SCH ×2 (05:46→14:34)
[2021-11-18] MEDS: NICOTINE PATCH TD SCH (09:26)
[2021-11-18] MEDS: ELIQUIS PO SCH ×2 (09:26→21:51)
[2021-11-18] MEDS: ASPIRIN 81 MG CHEWTAB PO SCH (09:26)
[2021-11-18] MEDS: LOPRESSOR TAB 25 MG PO SCH ×2 (09:26→21:51)
[2021-11-18] MEDS: PROTONIX TAB 40 MG PO SCH (09:27)
--- NOTE | 2021-11-18 19:28 | NOTE.SOAP ---
Soap Note Note for Day of Date of Exam: 11/18/21 Subjective Data Subjective Data: Patient a little more comfortable today. Objective Data Temperature: 98.7 F Pulse Rate: 64 Respiratory Rate: 20 Blood Pressure: 143/73 O2 Sat by Pulse Oximetry: 99 Objective Data: Excellent doppler signal both PT arteries , right foot warm but discoloration unchanged Assessment Assessment: B/L LE severe limb threatening ischemia , improved . Right foot is still borderline Plan Plan: Will, discuss with family. Plan placement
[2021-11-18] MEDS: MILK OF MAGNESIA PO SCH (21:49)
[2021-11-18] MEDS: COLACE CAP 100 MG PO SCH (21:50)
[2021-11-18] MEDS: PERCOCET TAB 5/325 MG PO PRN (21:51)
[2021-11-19] MEDS: LR 1,000 ML IV 1,000 ML IV SCH ×4 (02:28→22:00)
[2021-11-19] MEDS: ZOSYN VIAL 3.375 GRAMS 3.375 G in NS 100 ML IV + SPIKE MINIBAG* 100 ML IV SCH ×2 (05:58→15:01)
[2021-11-19 06:31] LABS: BASOPHILS # (AUTO) 0.1 X10^3/uL (0.0-0.1); BASOPHILS % (AUTO) 0.7 % (0.2-1.0); EOSINOPHILS # (AUTO) 0.1 x10^3/uL (0.0-0.2); EOSINOPHILS % (AUTO) 0.9 % (0.9-2.9); HEMATOCRIT 30.8 % (42.0-54.0); HEMOGLOBIN 10.3 g/dL (13.5-18.0); LYMPHOCYTES # (AUTO) 1.1 X10^3/uL (1.3-2.9); LYMPHOCYTES % (AUTO) 12.4 % (21.0-51.0); MEAN CORPUSCULAR HEMOGLOBIN 29.2 pg (27.0-34.0); MEAN CORPUSCULAR HGB CONC 33.4 g/dL (33.0-35.0); MEAN CORPUSCULAR VOLUME 87.4 fL (80.0-100.0); MEAN PLATELET VOLUME 8.3 fL (7.4-11.0); MONOCYTES # (AUTO) 0.9 x10^3/uL (0.3-0.8); MONOCYTES % (AUTO) 9.9 % (0.0-13.0); NEUTROPHILS # (AUTO) 6.7 x10^3/uL (2.2-4.8); NEUTROPHILS % (AUTO) 76.1 % (42.0-75.0); PLATELET COUNT 330 X10^3/uL (150.0-450.0); RED BLOOD COUNT 3.53 X10^6/uL (4.7-6.0); RED CELL DISTRIBUTION WIDTH 14.2 % (11.6-16.5); WHITE BLOOD COUNT 8.8 X10^3/uL (3.6-10.0)
[2021-11-19 06:51] LABS: ALANINE AMINOTRANSFERASE 77 Units/L (12-78); ALBUMIN 2.2 g/dL (3.4-5.0); ALKALINE PHOSPHATASE 83 Units/L (46-116); ASPARTATE AMINO TRANSFERASE 86 Units/L (15-37); BLOOD UREA NITROGEN 10 mg/dL (7-18); CALCIUM 8.8 mg/dL (8.5-10.1); CARBON DIOXIDE 28.4 mmol/L (21-32); CHLORIDE 101 mmol/L (98-107); COR CA(FOR HYPOALB) 10.2 mg/dL (8.5-10.1); COR NA(FOR HYPERGLY) 136 mmol/L (136-145); CREATININE 0.62 mg/dL (0.70-1.30); SODIUM 136 mmol/L (136-145); TOTAL PROTEIN 6.8 g/dL (6.4-8.2); eGFR NON BLACK RACES > 60 (>60)
[2021-11-19] MEDS: DILAUDID INJ IVP PRN (08:09)
[2021-11-19] MEDS: PROTONIX TAB 40 MG PO SCH (09:30)
[2021-11-19] MEDS: LOPRESSOR TAB 25 MG PO SCH ×2 (09:30→21:56)
[2021-11-19] MEDS: ELIQUIS PO SCH ×2 (09:30→21:56)
[2021-11-19] MEDS: ASPIRIN 81 MG CHEWTAB PO SCH (11:25)
[2021-11-19] MEDS: NICOTINE PATCH TD SCH (11:26)
[2021-11-19] MEDS: MILK OF MAGNESIA PO SCH (21:56)
[2021-11-19] MEDS: COLACE CAP 100 MG PO SCH (21:56)
[2021-11-20] MEDS: LR 1,000 ML IV 1,000 ML IV SCH ×4 (05:07→21:28)
[2021-11-20 06:13] LABS: BASOPHILS # (AUTO) 0.1 X10^3/uL (0.0-0.1); BASOPHILS % (AUTO) 1.2 % (0.2-1.0); EOSINOPHILS # (AUTO) 0.1 x10^3/uL (0.0-0.2); EOSINOPHILS % (AUTO) 1.2 % (0.9-2.9); HEMATOCRIT 29.9 % (42.0-54.0); HEMOGLOBIN 10.2 g/dL (13.5-18.0); LYMPHOCYTES # (AUTO) 1.3 X10^3/uL (1.3-2.9); LYMPHOCYTES % (AUTO) 14.9 % (21.0-51.0); MEAN CORPUSCULAR HEMOGLOBIN 29.8 pg (27.0-34.0); MEAN CORPUSCULAR HGB CONC 34.1 g/dL (33.0-35.0); MEAN CORPUSCULAR VOLUME 87.4 fL (80.0-100.0); MEAN PLATELET VOLUME 8.3 fL (7.4-11.0); MONOCYTES # (AUTO) 0.9 x10^3/uL (0.3-0.8); MONOCYTES % (AUTO) 10.2 % (0.0-13.0); NEUTROPHILS # (AUTO) 6.2 x10^3/uL (2.2-4.8); NEUTROPHILS % (AUTO) 72.5 % (42.0-75.0); PLATELET COUNT 355 X10^3/uL (150.0-450.0); RED BLOOD COUNT 3.42 X10^6/uL (4.7-6.0); RED CELL DISTRIBUTION WIDTH 14.1 % (11.6-16.5); WHITE BLOOD COUNT 8.5 X10^3/uL (3.6-10.0)
[2021-11-20 06:34] LABS: ALANINE AMINOTRANSFERASE 76 Units/L (12-78); ALBUMIN 2.1 g/dL (3.4-5.0); ALKALINE PHOSPHATASE 81 Units/L (46-116); ASPARTATE AMINO TRANSFERASE 60 Units/L (15-37); BLOOD UREA NITROGEN 8 mg/dL (7-18); CALCIUM 8.4 mg/dL (8.5-10.1); CARBON DIOXIDE 26.7 mmol/L (21-32); CHLORIDE 100 mmol/L (98-107); COR CA(FOR HYPOALB) 9.9 mg/dL (8.5-10.1); COR NA(FOR HYPERGLY) 134 mmol/L (136-145); SODIUM 134 mmol/L (136-145); TOTAL PROTEIN 6.6 g/dL (6.4-8.2); eGFR NON BLACK RACES > 60 (>60)
[2021-11-20] MEDS: ASPIRIN 81 MG CHEWTAB PO SCH (09:02)
[2021-11-20] MEDS: ELIQUIS PO SCH ×2 (09:03→20:18)
[2021-11-20] MEDS: NICOTINE PATCH TD SCH (09:03)
[2021-11-20] MEDS: LOPRESSOR TAB 25 MG PO SCH ×2 (09:03→20:18)
[2021-11-20] MEDS: PROTONIX TAB 40 MG PO SCH (09:04)
--- NOTE | 2021-11-20 10:02 | NOTE.SOAP ---
Soap Note Note for Day of Date of Exam: 11/19/21 Subjective Data Subjective Data: Doing well after revascularization of both legs . Left leg without significant problems . Right femoral artery palpable. right foot warm with biphasic flow in PT artery.Skin with duskiness distally. Objective Data Temperature: 98.3 F Pulse Rate: 63 Respiratory Rate: 18 Blood Pressure: 143/63 O2 Sat by Pulse Oximetry: 98 Objective Data: as above Assessment Assessment: B/l LE complex revascularization Plan Plan: Plan to discuss with him and his family if they want to try to see what happens or go ahead with right below knee amputation. His sister and the patient want to be conservative for now . We will seek placement .
--- NOTE | 2021-11-20 10:17 | NOTE.SOAP ---
Soap Note Note for Day of Date of Exam: 11/20/21 Subjective Data Subjective Data: Continues to do well. Complaining of some pain of the right foot but less. Objective Data Temperature: 98.3 F Pulse Rate: 63 Respiratory Rate: 18 Blood Pressure: 143/63 O2 Sat by Pulse Oximetry: 98 Objective Data: no change in right foot Assessment Assessment: s/p revascularization both legs with severe limb threatening ischem ia. Plan Plan: Placement and physical therapy.
[2021-11-20] MEDS: PERCOCET TAB 5/325 MG PO PRN ×2 (15:02→21:28)
[2021-11-20] MEDS: MILK OF MAGNESIA PO SCH (20:18)
[2021-11-20] MEDS: COLACE CAP 100 MG PO SCH (20:18)
[2021-11-21] MEDS: LR 1,000 ML IV 1,000 ML IV SCH ×2 (00:27→05:29)
[2021-11-21 06:09] LABS: BASOPHILS # (AUTO) 0.1 X10^3/uL (0.0-0.1); BASOPHILS % (AUTO) 0.9 % (0.2-1.0); EOSINOPHILS # (AUTO) 0.1 x10^3/uL (0.0-0.2); EOSINOPHILS % (AUTO) 1.3 % (0.9-2.9); HEMOGLOBIN 10.4 g/dL (13.5-18.0); LYMPHOCYTES # (AUTO) 1.1 X10^3/uL (1.3-2.9); LYMPHOCYTES % (AUTO) 14.9 % (21.0-51.0); MEAN CORPUSCULAR HEMOGLOBIN 29.3 pg (27.0-34.0); MEAN CORPUSCULAR HGB CONC 33.6 g/dL (33.0-35.0); MEAN CORPUSCULAR VOLUME 87.1 fL (80.0-100.0); MEAN PLATELET VOLUME 8.3 fL (7.4-11.0); MONOCYTES # (AUTO) 0.9 x10^3/uL (0.3-0.8); MONOCYTES % (AUTO) 11.1 % (0.0-13.0); NEUTROPHILS # (AUTO) 5.5 x10^3/uL (2.2-4.8); NEUTROPHILS % (AUTO) 71.8 % (42.0-75.0); PLATELET COUNT 395 X10^3/uL (150.0-450.0); RED BLOOD COUNT 3.56 X10^6/uL (4.7-6.0); WHITE BLOOD COUNT 7.7 X10^3/uL (3.6-10.0)
[2021-11-21 06:38] LABS: ALANINE AMINOTRANSFERASE 70 Units/L (12-78); ALBUMIN 2.3 g/dL (3.4-5.0); ALKALINE PHOSPHATASE 78 Units/L (46-116); ASPARTATE AMINO TRANSFERASE 48 Units/L (15-37); BLOOD UREA NITROGEN 8 mg/dL (7-18); CALCIUM 8.9 mg/dL (8.5-10.1); CARBON DIOXIDE 24.4 mmol/L (21-32); CHLORIDE 100 mmol/L (98-107); COR CA(FOR HYPOALB) 10.3 mg/dL (8.5-10.1); COR NA(FOR HYPERGLY) 135 mmol/L (136-145); CREATININE 0.57 mg/dL (0.70-1.30); SODIUM 134 mmol/L (136-145); TOTAL PROTEIN 6.8 g/dL (6.4-8.2); eGFR NON BLACK RACES > 60 (>60)
[2021-11-21 07:44] VITALS: BP 135/63
[2021-11-21] MEDS: ASPIRIN 81 MG CHEWTAB PO SCH (08:56)
[2021-11-21] MEDS: NICOTINE PATCH TD SCH (08:56)
[2021-11-21] MEDS: ELIQUIS PO SCH (08:56)
[2021-11-21] MEDS: PROTONIX TAB 40 MG PO SCH (08:56)
[2021-11-21] MEDS: LOPRESSOR TAB 25 MG PO SCH (08:56)
--- NOTE | 2021-11-21 15:43 | W.DIS.FURT ---
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 He had past history of amputation of the right great toe one year previously after a femoral femoral graft for complete occlusion of the left common iliac artery and a right femoral popliteal bypass graft for complete occlusion of the right superficial femoral artery. Both grafts had occluded. On 11/08/2021 underwent retrograde approach and athrectomy of right tib-peroneal trunk , right superficial femoral artery and drug coated balloon angioplasty of the these with stenting of the right common and external iliac arteries and covered stent placement of the right SFA for dissection. On he underwent angioplasty of the completely occluded left iliac artery ( common and external) . At that time he had poor flow down the right leg and arteriogram showed thrombus. He had an EKOS catheter placed of the right leg and underwent thrombolysis overnight with TPA. 11/13/2021 he had the EKOS catheter withdrawn from the right leg and had angioplsty of the right and left distal external iliac arteries, angioplasty of the right SFA gortex covered graft and angioplasty of the right anterior tibial artery. He had amputation of the left second toe at the first operation. Left leg has done well with excellent doppler signal in the left posterior tibial artery. Right foot warm but has ecchymosis and open wound of the right second toe amputation. Discussed options of right below knee amputation versus careful observation to see how he will do. He and his family have chosen observation. His pain is less. Original ABIs were 0.25./0.26.. At least saved him from bilateral above knee amputations. Transferred today to SNF. F/U with me one week. Diagnosed with hypertension treated and controlled with Lopressor 25 mg po BID . Vital Signs: Vital Signs (72 hours) 11/18/21 16:00 11/18/21 19:28 11/18/21 20:00 Temperature 98.7 F 98.7 F 98.8 F Pulse Rate 64 Pulse Rate [Right Brachial] 64 69 Respiratory Rate 20 20 18 Blood Pressure 143/73 Blood Pressure [Left Arm] 143/73 119/57 Blood Pressure [Right Arm] O2 Sat by Pulse Oximetry 99 99 97 11/18/21 21:51 11/18/21 22:51 11/19/21 00:00 Temperature 99.3 F Pulse Rate Pulse Rate [Right Brachial] 60 Respiratory Rate 20 20 18 Blood Pressure Blood Pressure [Left Arm] 104/55 Blood Pressure [Right Arm] O2 Sat by Pulse Oximetry 96 11/19/21 04:00 11/19/21 08:00 11/19/21 08:09 Temperature 98.6 F 98.3 F Pulse Rate Pulse Rate [Right Brachial] 63 66 Respiratory Rate 20 20 20 Blood Pressure Blood Pressure [Left Arm] 120/55 140/62 Blood Pressure [Right Arm] O2 Sat by Pulse Oximetry 97 99 11/19/21 08:39 11/19/21 11:56 11/19/21 16:00 Temperature 97.8 F 98.6 F Pulse Rate Pulse Rate [Right Brachial] 66 68 Respiratory Rate 20 20 22 Blood Pressure Blood Pressure [Left Arm] 140/62 149/67 Blood Pressure [Right Arm] O2 Sat by Pulse Oximetry 99 100 11/19/21 20:00 11/19/21 23:57 11/20/21 03:58 Temperature 98.4 F 98.6 F 98.8 F Pulse Rate Pulse Rate [Right Brachial] 70 60 69 Respiratory Rate 20 19 17 Blood Pressure Blood Pressure [Left Arm] 137/65 130/60 Blood Pressure [Right Arm] 135/65 O2 Sat by Pulse Oximetry 97 96 97 11/20/21 08:00 11/20/21 10:02 11/20/21 10:26 Temperature 98.3 F 98.3 F 98.3 F Pulse Rate 63 63 Pulse Rate [Right Brachial] 63 Respiratory Rate 18 18 18 Blood Pressure 143/63 143/63 Blood Pressure [Left Arm] 143/63 Blood Pressure [Right Arm] O2 Sat by Pulse Oximetry 98 98 98 11/20/21 12:00 11/20/21 15:02 11/20/21 16:00 Temperature 98.9 F 98.0 F Pulse Rate Pulse Rate [Right Brachial] 64 65 Respiratory Rate 18 18 18 Blood Pressure Blood Pressure [Left Arm] 140/64 132/72 Blood Pressure [Right Arm] O2 Sat by Pulse Oximetry 99 97 11/20/21 16:02 11/20/21 20:00 11/20/21 21:28 Temperature 97.7 F Pulse Rate Pulse Rate [Right Brachial] 62 Respiratory Rate 16 20 18 Blood Pressure Blood Pressure [Left Arm] 132/60 Blood Pressure [Right Arm] O2 Sat by Pulse Oximetry 97 11/20/21 22:28 11/20/21 23:23 11/21/21 04:00 Temperature 98.3 F 98.4 F Pulse Rate Pulse Rate [Right Brachial] 57 L 59 L Respiratory Rate 16 18 18 Blood Pressure Blood Pressure [Left Arm] 120/61 132/59 Blood Pressure [Right Arm] O2 Sat by Pulse Oximetry 96 98 11/21/21 07:44 Temperature 98.2 F Pulse Rate Pulse Rate [Right Brachial] 67 Respiratory Rate 20 Blood Pressure Blood Pressure [Left Arm] 135/63 Blood Pressure [Right Arm] O2 Sat by Pulse Oximetry 97 Labs: Laboratory Last Values WBC 7.7 X10^3/uL (3.6-10.0) 11/21/21 05:25 RBC 3.56 X10^6/uL (4.7-6.0) L 11/21/21 05:25 Hgb 10.4 g/dL (13.5-18.0) L 11/21/21 05:25 Hct 31.0 % (42.0-54.0) L 11/21/21 05:25 MCV 87.1 fL (80.0-100.0) 11/21/21 05:25 MCH 29.3 pg (27.0-34.0) 11/21/21 05:25 MCHC 33.6 g/dL (33.0-35.0) 11/21/21 05:25 RDW 14.0 % (11.6-16.5) 11/21/21 05:25 Plt Count 395 X10^3/uL (150.0-450.0) 11/21/21 05:25 MPV 8.3 fL (7.4-11.0) 11/21/21 05:25 Neut % (Auto) 71.8 % (42.0-75.0) 11/21/21 05:25 Lymph % (Auto) 14.9 % (21.0-51.0) L 11/21/21 05:25 [place] % (Auto) 11.1 % (0.0-13.0) 11/21/21 05:25 Eos % (Auto) 1.3 % (0.9-2.9) 11/21/21 05:25 Baso % (Auto) 0.9 % (0.2-1.0) 11/21/21 05:25 Neut # (Auto) 5.5 x10^3/uL (2.2-4.8) H 11/21/21 05:25 Lymph # (Auto) 1.1 X10^3/uL (1.3-2.9) L 11/21/21 05:25 [place] # (Auto) 0.9 x10^3/uL (0.3-0.8) H 11/21/21 05:25 Eos # (Auto) 0.1 x10^3/uL (0.0-0.2) 11/21/21 05:25 Baso # (Auto) 0.1 X10^3/uL (0.0-0.1) 11/21/21 05:25 Absolute Nucleated RBC 0.0 /100WBC 11/21/21 05:25 PT 14.6 SECONDS (11.8-14.3) 11/07/21 15:48 INR Target Range - 11/07/21 15:48 INR 1.20 (0.8-1.3) 11/07/21 15:48 APTT 37.8 SECONDS (22.9-36.5) H 11/13/21 12:49 PTT Comment - 11/13/21 12:49 Fibrinogen 557 mg/dL (239-489) H 11/14/21 05:00 Sodium 134 mmol/L (136-145) L 11/21/21 05:25 Corrected Sodium 135 mmol/L (136-145) L 11/21/21 05:25 Potassium 4.2 mmol/L (3.5-5.1) 11/21/21 05:25 Chloride 100 mmol/L (98-107) 11/21/21 05:25 Carbon Dioxide 24.4 mmol/L (21-32) 11/21/21 05:25 BUN 8 mg/dL (7-18) 11/21/21 05:25 Creatinine 0.57 mg/dL (0.70-1.30) L 11/21/21 05:25 Est GFR (MDRD) Af Amer > 60 (>60) 11/21/21 05:25 Est GFR (MDRD) Non-Af > 60 (>60) 11/21/21 05:25 Glucose 135 mg/dL (65-99) H 11/21/21 05:25 Calcium 8.9 mg/dL (8.5-10.1) 11/21/21 05:25 Corrected Calcium 10.3 mg/dL (8.5-10.1) H 11/21/21 05:25 Magnesium 2.4 mg/dL (1.7-2.9) 11/07/21 21:34 Total Bilirubin 0.50 mg/dL (0.2-1.0) 11/21/21 05:25 AST 48 Units/L (15-37) H 11/21/21 05:25 ALT 70 Units/L (12-78) 11/21/21 05:25 Alkaline Phosphatase 78 Units/L (46-116) 11/21/21 05:25 Creatine Kinase 2220 Units/L (39-308) H 11/17/21 06:12 Total Protein 6.8 g/dL (6.4-8.2) 11/21/21 05:25 Albumin 2.3 g/dL (3.4-5.0) L 11/21/21 05:25 Globulin 4.5 g/dL (2.5-4.5) 11/21/21 05:25 Albumin/Globulin Ratio 0.5 Ratio (1.1-2.1) L 11/21/21 05:25 LDL Cholesterol Direct 96 11/17/21 06:12 HDL Cholesterol 23 mg/dL (40-60) L 11/17/21 06:12 SARS CoV-2 RNA Rapid TERE Negative (NEGATIVE) 11/07/21 13:57 Tissue Pathology To follow 11/08/21 12:33 Reason For Visit: RIGHT FOOT ISCHEMIA Discharge Date Discharge Date: 11/21/21 Discharge Diagnosis All Active Problems (Updated 11/06/21 @ 13:50 by Vasquez Hogan) Critical limb ischemia of left lower extremity (Acute) Critical limb ischemia of right lower extremity with gangrene (Acute) Ischemic pain of right foot (Acute) Plan of Treatment: Continue with present treatment and follow up plan. Pt is to keep follow up appointment as instructed and take medications as ordered. Discharge Medications Discharge Medications: No Known Drug Allergies Allergy (Verified 11/05/21 15:45) Lopressor 25 mg po BID Percocet 5 mg - 1 to 2 po q 6 hr PRN pain Follow up and Referral Follow Up: dr. Hogan 1 Week Discharge Disposition Assessment: Stable. 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 He had past history of amputation of the right great toe one year previously after a femoral femoral graft for complete occlusion of the left common iliac artery and a right femoral popliteal bypass graft for complete occlusion of the right superficial femoral artery. Both grafts had occluded. On 11/08/2021 underwent retrograde approach and athrectomy of right tib-peroneal trunk , right superficial femoral artery and drug coated balloon angioplasty of the these with stenting of the right common and external iliac arteries and covered stent placement of the right SFA for di ssection. On he underwent angioplasty of the completely occluded left iliac artery ( common and external) . At that time he had poor flow down the right leg and arteriogram showed thrombus. He had an EKOS catheter placed of the right leg and underwent thrombolysis overnight with TPA. 11/13/2021 he had the EKOS catheter withdrawn from the right leg and had angioplsty of the right and left distal external iliac arteries, angioplasty of the right SFA gortex covered graft and angioplasty of the right anterior tibial artery. He had amputation of the left second toe at the first operation. Left leg has done well with excellent doppler signal in the left posterior tibial artery. Right foot warm but has ecchymosis and open wound of the right second toe amputation. Discussed options of right below knee amputation versus careful observation to see how he will do. He and his family have chosen observation. His pain is less. Original ABIs were 0.25./0.26.. At least saved him from bilateral above knee amputations. Transferred today to SNF. F/U with me one week. Diagnosed with hypertension treated and controlled with Lopressor 25 mg po BID . Condition: Stable Health Concerns: Post Hospitalization: new medications and changes needed to prevent readmission or further decline. Pt educated and given instructions on all concerns. Care Plan Goals: Save right leg and obtain ability to ambulate unassisted Plan of Treatment: Continue with present treatment and follow up plan. Pt is to keep follow up appointment as instructed and take medications as ordered. Assessment: Stable. Status of the right leg is guarded Prescription drug monitoring program results: PDMP reviewed and no concerns identified Prescriptions: No Action oxycodone-acetaminophen [Percocet] 5-325 mg tablet 1 tab PO Q6H MDD 6 PRNQty: 30 RF: 0 Orders to Discharge Patient Discharge Orders: Discharge (Routine); Ordered 11/21/21 Ordered By: Vasquez Hogan Follow ups/Referrals Follow ups/Referrals: Geovanni Patel [Primary Care Provider] - 1 WEEK Vasquez Hogan [STAFF PHYSICIAN] - 11/30/21 10:00 am Instructions Instructions: Living With an Amputation, Gangrene, Phantom Limb Pain, Traumatic Toe Amputation, Diabetic Neuropathy, Preventing Diabetes Mellitus Complications Stand Alone Forms: Excuse From Work or School, Precautions for COVID19, [facility], Patient Portal, Social Distancing
--- NOTE | 2021-11-21 22:14 | W.DIS.FURT ---
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 He had past history of amputation of the right great toe one year previously after a femoral femoral graft for complete occlusion of the left common iliac artery and a right femoral popliteal bypass graft for complete occlusion of the right superficial femoral artery. Both grafts had occluded. On 11/08/2021 underwent retrograde approach and athrectomy of right tib-peroneal trunk , right superficial femoral artery and drug coated balloon angioplasty of the these with stenting of the right common and external iliac arteries and covered stent placement of the right SFA for dissection. On he underwent angioplasty of the completely occluded left iliac artery ( common and external) . At that time he had poor flow down the right leg and arteriogram showed thrombus. He had an EKOS catheter placed of the right leg and underwent thrombolysis overnight with TPA. 11/13/2021 he had the EKOS catheter withdrawn from the right leg and had angioplsty of the right and left distal external iliac arteries, angioplasty of the right SFA gortex covered graft and angioplasty of the right anterior tibial artery. He had amputation of the left second toe at the first operation. Left leg has done well with excellent doppler signal in the left posterior tibial artery. Right foot warm but has ecchymosis and open wound of the right second toe amputation. Discussed options of right below knee amputation versus careful observation to see how he will do. He and his family have chosen observation. His pain is less. Original ABIs were 0.25./0.26.. At least saved him from bilateral above knee amputations. Transferred today to SNF. F/U with me one week. Diagnosed with hypertension treated and controlled with Lopressor 25 mg po BID . Vital Signs: Vital Signs (72 hours) 11/18/21 22:51 11/19/21 00:00 11/19/21 04:00 Temperature 99.3 F 98.6 F Pulse Rate Pulse Rate [Right Brachial] 60 63 Respiratory Rate 20 18 20 Blood Pressure Blood Pressure [Left Arm] 104/55 120/55 Blood Pressure [Right Arm] O2 Sat by Pulse Oximetry 96 97 11/19/21 08:00 11/19/21 08:09 11/19/21 08:39 Temperature 98.3 F Pulse Rate Pulse Rate [Right Brachial] 66 Respiratory Rate 20 20 20 Blood Pressure Blood Pressure [Left Arm] 140/62 Blood Pressure [Right Arm] O2 Sat by Pulse Oximetry 99 11/19/21 11:56 11/19/21 16:00 11/19/21 20:00 Temperature 97.8 F 98.6 F 98.4 F Pulse Rate Pulse Rate [Right Brachial] 66 68 70 Respiratory Rate 20 22 20 Blood Pressure Blood Pressure [Left Arm] 140/62 149/67 137/65 Blood Pressure [Right Arm] O2 Sat by Pulse Oximetry 99 100 97 11/19/21 23:57 11/20/21 03:58 11/20/21 08:00 Temperature 98.6 F 98.8 F 98.3 F Pulse Rate Pulse Rate [Right Brachial] 60 69 63 Respiratory Rate 19 17 18 Blood Pressure Blood Pressure [Left Arm] 130/60 143/63 Blood Pressure [Right Arm] 135/65 O2 Sat by Pulse Oximetry 96 97 98 11/20/21 10:02 11/20/21 10:26 11/20/21 12:00 Temperature 98.3 F 98.3 F 98.9 F Pulse Rate 63 63 Pulse Rate [Right Brachial] 64 Respiratory Rate 18 18 18 Blood Pressure 143/63 143/63 Blood Pressure [Left Arm] 140/64 Blood Pressure [Right Arm] O2 Sat by Pulse Oximetry 98 98 99 11/20/21 15:02 11/20/21 16:00 11/20/21 16:02 Temperature 98.0 F Pulse Rate Pulse Rate [Right Brachial] 65 Respiratory Rate 18 18 16 Blood Pressure Blood Pressure [Left Arm] 132/72 Blood Pressure [Right Arm] O2 Sat by Pulse Oximetry 97 11/20/21 20:00 11/20/21 21:28 11/20/21 22:28 Temperature 97.7 F Pulse Rate Pulse Rate [Right Brachial] 62 Respiratory Rate 20 18 16 Blood Pressure Blood Pressure [Left Arm] 132/60 Blood Pressure [Right Arm] O2 Sat by Pulse Oximetry 97 11/20/21 23:23 11/21/21 04:00 11/21/21 07:44 Temperature 98.3 F 98.4 F 98.2 F Pulse Rate Pulse Rate [Right Brachial] 57 L 59 L 67 Respiratory Rate 18 18 20 Blood Pressure Blood Pressure [Left Arm] 120/61 132/59 135/63 Blood Pressure [Right Arm] O2 Sat by Pulse Oximetry 96 98 97 Labs: Laboratory Last Values WBC 7.7 X10^3/uL (3.6-10.0) 11/21/21 05:25 RBC 3.56 X10^6/uL (4.7-6.0) L 11/21/21 05:25 Hgb 10.4 g/dL (13.5-18.0) L 11/21/21 05:25 Hct 31.0 % (42.0-54.0) L 11/21/21 05:25 MCV 87.1 fL (80.0-100.0) 11/21/21 05:25 MCH 29.3 pg (27.0-34.0) 11/21/21 05:25 MCHC 33.6 g/dL (33.0-35.0) 11/21/21 05:25 RDW 14.0 % (11.6-16.5) 11/21/21 05:25 Plt Count 395 X10^3/uL (150.0-450.0) 11/21/21 05:25 MPV 8.3 fL (7.4-11.0) 11/21/21 05:25 Neut % (Auto) 71.8 % (42.0-75.0) 11/21/21 05:25 Lymph % (Auto) 14.9 % (21.0-51.0) L 11/21/21 05:25 [place] % (Auto) 11.1 % (0.0-13.0) 11/21/21 05:25 Eos % (Auto) 1.3 % (0.9-2.9) 11/21/21 05:25 Baso % (Auto) 0.9 % (0.2-1.0) 11/21/21 05:25 Neut # (Auto) 5.5 x10^3/uL (2.2-4.8) H 11/21/21 05:25 Lymph # (Auto) 1.1 X10^3/uL (1.3-2.9) L 11/21/21 05:25 [place] # (Auto) 0.9 x10^3/uL (0.3-0.8) H 11/21/21 05:25 Eos # (Auto) 0.1 x10^3/uL (0.0-0.2) 11/21/21 05:25 Baso # (Auto) 0.1 X10^3/uL (0.0-0.1) 11/21/21 05:25 Absolute Nucleated RBC 0.0 /100WBC 11/21/21 05:25 PT 14.6 SECONDS (11.8-14.3) 11/07/21 15:48 INR Target Range - 11/07/21 15:48 INR 1.20 (0.8-1.3) 11/07/21 15:48 APTT 37.8 SECONDS (22.9-36.5) H 11/13/21 12:49 PTT Comment - 11/13/21 12:49 Fibrinogen 557 mg/dL (239-489) H 11/14/21 05:00 Sodium 134 mmol/L (136-145) L 11/21/21 05:25 Corrected Sodium 135 mmol/L (136-145) L 11/21/21 05:25 Potassium 4.2 mmol/L (3.5-5.1) 11/21/21 05:25 Chloride 100 mmol/L (98-107) 11/21/21 05:25 Carbon Dioxide 24.4 mmol/L (21-32) 11/21/21 05:25 BUN 8 mg/dL (7-18) 11/21/21 05:25 Creatinine 0.57 mg/dL (0.70-1.30) L 11/21/21 05:25 Est GFR (MDRD) Af Amer > 60 (>60) 11/21/21 05:25 Est GFR (MDRD) Non-Af > 60 (>60) 11/21/21 05:25 Glucose 135 mg/dL (65-99) H 11/21/21 05:25 Calcium 8.9 mg/dL (8.5-10.1) 11/21/21 05:25 Corrected Calcium 10.3 mg/dL (8.5-10.1) H 11/21/21 05:25 Magnesium 2.4 mg/dL (1.7-2.9) 11/07/21 21:34 Total Bilirubin 0.50 mg/dL (0.2-1.0) 11/21/21 05:25 AST 48 Units/L (15-37) H 11/21/21 05:25 ALT 70 Units/L (12-78) 11/21/21 05:25 Alkaline Phosphatase 78 Units/L (46-116) 11/21/21 05:25 Creatine Kinase 2220 Units/L (39-308) H 11/17/21 06:12 Total Protein 6.8 g/dL (6.4-8.2) 11/21/21 05:25 Albumin 2.3 g/dL (3.4-5.0) L 11/21/21 05:25 Globulin 4.5 g/dL (2.5-4.5) 11/21/21 05:25 Albumin/Globulin Ratio 0.5 Ratio (1.1-2.1) L 11/21/21 05:25 LDL Cholesterol Direct 96 11/17/21 06:12 HDL Cholesterol 23 mg/dL (40-60) L 11/17/21 06:12 SARS CoV-2 RNA Rapid TERE Negative (NEGATIVE) 11/07/21 13:57 Tissue Pathology To follow 11/08/21 12:33 Reason For Visit: RIGHT FOOT ISCHEMIA Discharge Date Discharge Date: 11/21/21 Discharge Diagnosis All Active Problems (Updated 11/06/21 @ 13:50 by Vasquez Hogan) Critical limb ischemia of left lower extremity (Acute) Critical limb ischemia of right lower extremity with gangrene (Acute) Ischemic pain of right foot (Acute) Plan of Treatment: Continue with present treatment and follow up plan. Pt is to keep follow up appointment as instructed and take medications as ordered. Discharge Medications Discharge Medications: No Known Drug Allergies Allergy (Verified 11/05/21 15:45) Percocet 5 m 1 po q 6 hr PRN pain Lopressor 25 mg po BID Follow up and Referral Follow Up: Dr. Hogan 1 Week Discharge Disposition Assessment: Stable. Status of the right leg is guarded Discharge Disposition: stable Discharge Condition: stable Discharge Plan Discharge Plan Hospital Course: 61 year old male deaf since who presented with acutely ischemic left foot with a gangrenous right second toe. He had past history of amputation of the right great toe one year previously after a femoral femoral graft for complete occlusion of the left common iliac artery and a right femoral popliteal bypass graft for complete occlusion of the right superficial femoral artery. Both grafts had occluded. On 11/08/2021 underwent retrograde approach and athrectomy of right tib-peroneal trunk , right superficial femoral artery and drug coated balloon angioplasty of the these with stenting of the right common and external iliac arteries and covered stent placement of the right SFA for dissection. On he underwent angioplasty of the completely occluded left iliac artery ( common and external) . At that time he had poor flow down the right leg and arteriogram showed thrombus. He had an EKOS catheter placed of the right leg and underwent thrombolysis overnight with TPA. 11/13/2021 he had the EKOS catheter withdrawn from the right leg and had angioplsty of the right and left distal external iliac arteries, angioplasty of the right SFA gortex covered graft and angioplasty of the right anterior tibial artery. He had amputation of the left second toe at the first operation. Left leg has done well with excellent doppler signal in the left posterior tibial artery. Right foot warm but has ecchymosis and open wound of the right second toe amputation. Discussed options of right below knee amputation versus careful observation to see how he will do. He and his family have chosen observation. His pain is less. Original ABIs were 0.25./0.26.. At least saved him from bilateral above knee amputations. Transferred today to SNF. F/U with me one week. Diagnosed with hypertension treated and controlled with Lopressor 25 mg po BID . Condition: Stable Health Concerns: Post Hospitalization: new medications and changes needed to prevent readmission or further decline. Pt educated and given instructions on all concerns. Care Plan Goals: Save right leg and obtain ability to ambulate unassisted Plan of Treatment: Continue with present treatment and follow up plan. Pt is to keep follow up appointment as instructed and take medications as ordered. Assessment: Stable. Status of the right leg is guarded Prescription drug monitoring program results: PDMP reviewed and no concerns identified Prescriptions: No Action oxycodone-acetaminophen [Percocet] 5-325 mg tablet 1 tab PO Q6H MDD 6 PRNQty: 30 RF: 0 Orders to Discharge Patient Discharge Orders: Discharge (Routine); Ordered 11/21/21 Ordered By: Vasquez Hogan Follow ups/Referrals Follow ups/Referrals: Geovanni Patel [Primary Care Provider] - 1 WEEK Vasquez Hogan [STAFF PHYSICIAN] - 11/30/21 10:00 am Instructions Instructions: Living With an Amputation, Gangrene, Phantom Limb Pain, Traumatic Toe Amputation, Diabetic Neuropathy, Preventing Diabetes Mellitus Complications Stand Alone Forms: Excuse From Work or School, Precautions for [facility], Patient Portal, Social Distancing
== END 2021-11-21 11:55 | DRG 271 ==
LOC: ICU 13:48 → MED/SURG 11-14 18:05
PROVIDERS: ADMIT Surgery; ATTEND Surgery
DX: Z72.0 Tobacco use; Z89.411 Acquired absence of right great toe; I70.222 Atherosclerosis of native arteries of extremities with rest pain, left leg; R26.89 Other abnormalities of gait and mobility; I10 Essential (primary) hypertension; I99.8 Other disorder of circulatory system; M79.671 Pain in right foot; H90.3 Sensorineural hearing loss, bilateral; Z20.822 Contact with and (suspected) exposure to COVID-19; I70.261 Atherosclerosis of native arteries of extremities with gangrene, right leg

== ENCOUNTER 2022-04-08 13:10 | Inpatient (IN) ==
[2022-04-08] MEDS ORDERED: ULTANE GAS IN ONE (13:50)
[2022-04-08] MEDS ORDERED: XYLOCAINE 2 % (PLAIN) ONE (13:50)
[2022-04-08 16:00] VITALS: BMI 21.8
[2022-04-08 16:31] LABS: BASOPHILS # (AUTO) 0.1 X10^3/uL (0.0-0.1); BASOPHILS % (AUTO) 0.5 % (0.2-1.0); EOSINOPHILS # (AUTO) 0.1 x10^3/uL (0.0-0.2); EOSINOPHILS % (AUTO) 0.6 % (0.9-2.9); HEMATOCRIT 42.7 % (42.0-54.0); HEMOGLOBIN 14.3 g/dL (13.5-18.0); LYMPHOCYTES # (AUTO) 1.4 X10^3/uL (1.3-2.9); LYMPHOCYTES % (AUTO) 13.6 % (21.0-51.0); MEAN CORPUSCULAR HEMOGLOBIN 28.2 pg (27.0-34.0); MEAN CORPUSCULAR HGB CONC 33.5 g/dL (33.0-35.0); MEAN PLATELET VOLUME 7.3 fL (7.4-11.0); MONOCYTES # (AUTO) 0.9 x10^3/uL (0.3-0.8); MONOCYTES % (AUTO) 8.1 % (0.0-13.0); NEUTROPHILS # (AUTO) 8.1 x10^3/uL (2.2-4.8); NEUTROPHILS % (AUTO) 77.2 % (42.0-75.0); RED BLOOD COUNT 5.08 X10^6/uL (4.7-6.0); RED CELL DISTRIBUTION WIDTH 13.9 % (11.6-16.5); WHITE BLOOD COUNT 10.5 X10^3/uL (3.6-10.0)
[2022-04-08 16:42] LABS: BLOOD UREA NITROGEN 12 mg/dL (7-18); CALCIUM 9.4 mg/dL (8.5-10.1); CHLORIDE 100 mmol/L (98-107); COR NA(FOR HYPERGLY) 138 mmol/L (136-145); CREATININE 0.64 mg/dL (0.70-1.30); SODIUM 137 mmol/L (136-145); eGFR NON BLACK RACES > 60 (>60)
[2022-04-08] MEDS: LR 1,000 ML IV 1,000 ML IV SCH (16:45)
[2022-04-08] MEDS: DILAUDID INJ IVP PRN ×2 (16:46→21:45)
--- NOTE | 2022-04-08 20:06 | CT ---
HISTORYNEW ONSET ISCHEMIA LEFT FOOTSTUDYCTA AORTA WITH RUNOFFCOMPARISONNone available.TECHNIQUEAxial CT images of the abdomen, pelvis and lower extremities were obtained prior to and after the administration of IV contrast during the arterial phase. Images were reformatted with MIP and 3D angiographic techniques for further evaluation.Radiation dose: 2841.50 mGy-cm total DLPFINDINGSAorta: Atherosclerotic changes with no aneurysm. No clinically significant stenosis or occlusion.Mesenteric arteries/Celiac trunk: Atherosclerotic changes. No clinically significant stenosis, occlusion or aneurysm.Renal arteries: Atherosclerotic changes. No clinically significant stenosis, occlusion or aneurysm.Right iliac arteries: Stent in place. No clinically significant stenosis, occlusion or aneurysm.Left iliac arteries: Stent in place. No clinically significant stenosis, occlusion or aneurysm.Right femoral arteries/popliteal artery: Vascular conduit extending through the lower anterior abdominal wall connecting the right and left common femoral arteries; occluded. Moderate-severe narrowing of the distal external iliac artery. Stent in the proximal to mid superficial femoral artery. No occlusion or aneurysm.Left femoral arteries/popliteal artery: Vascular conduit extending through the lower anterior abdominal wall connecting the right and left common femoral arteries; occluded. Moderate-severe narrowing of the distal external iliac artery. Near complete occlusion of the left superficial femoral artery. Left profunda femoral artery is patent. Reconstitution of the left popliteal artery.Right infrapopliteal arteries: Occlusion of the right posterior tibial artery. Occlusion of the mid-distal anterior tibial artery.Left infrapopliteal arteries: No occlusion or aneurysm. 3 vessel runoff.Lung bases are clear.No acute osseous abnormality.Stomach and proximal small bowel appear normal.Solid visceral organs of the upper abdomen are unremarkable.Gallbladder appears normal.No biliary dilatation.Homogeneous enhancement of the kidneys without hydronephrosis or hydroureter.No urinary calculus identified.Urinary bladder is unremarkable.Colonic diverticulosis without diverticulitis.Otherwise, unremarkable appearance of the small and large bowel.No evidence of acute appendicitis.Reproductive structures are unremarkable.No pneumoperitoneum.No free intra-abdominal fluid.No adenopathy.Isodense collection in the left inguinal region with no contrast enhanced is nonspecific.IMPRESSION1. No acute intra-abdominal abnormality identified.2. Colonic diverticulosis without diverticulitis.3. Occlusion of the left superficial femoral artery; as seen on the previous exam. Reconstitution of the left popliteal artery with normal three-vessel runoff.4. Occlusion of the right posterior tibial artery. Occlusion of the mid-distal anterior tibial artery.Electronically signed by: Jasper Gómez (April 08, 2022 20:05:16)
[2022-04-08] MEDS: LOPRESSOR TAB 25 MG PO SCH (20:51)
--- NOTE | 2022-04-08 23:10 | DR.H&P ---
H&P History & Physical for Day of: H&P Date: 04/08/22 Chief Complaint Chief Complaint: Gangrenous changes of the left foot toes # 4 and 5 Allergies Allergies Allergy/AdvReac Type Severity Reaction Status Date / Time No Known Drug Allergies Allergy Verified 11/05/21 15:45 History of Present Illness History of Present Illness: 61 year old male with a history of deafness since childhood and a long history of tobacco abuse who presented in October of 2021 with gangrenous changes of the right foot and severe ischemia of both lower extremities. Through a combination of atherectomy, angioplasty , thrombolysis , and stenting ,flow was re-established to both legs. Patient had a femoral- femoral bypass for a left iliac occlusion and a right femoral popliteal bypass for a right femoral artery occlusion. At that time both were occluded and his ruby vessels were restored with the above stated procedures. He subsequently underwent a right transmetatarsal amputation which has healed nicely. He presents now with severe pain and gangrenous changes of the left 4th and 5th toes. He has been admitted and CT angiogram of aorta and lower extremities showing patent stents in both the iliac vessels. Severe stenosis of the right external iliac artery distal to the stent . Patent right superficial femoral artery covered stent with two vessel runoff on the right side. The iliac arteries and stents open in the left iliac arteries with occlusion of the left superficial femoral artery along its entire length with reconstitution of the popliteal artery and three vessel runoff . Past Medical History Past Medical History: Hypertension Additional Medical History: Patient with heavy smoking history. Patient has been deaf since but is educated, can read and write ( that is how we communicated ) and is oriented to person , place and time. History also obtained from his sister over the phone. Past Surgical History Surgical History: Ortho Surgery and Other Additional Surgical History: History of femoral femoral bypass for occluded left common iliac and femoral popliteal bypass for severe ischemia right leg done in December of 2020. All this appears to be occluded now . At that time he was prepared for amputation of the right great toe. His sister notes that he is non- compliant with treatment. He continues to smoke cigarettes heavily and takes no other medications despite having recognized high blood pressure on admission. Family History Family Medical History: Heart Failure Social History Does patient currently use any type of tobacco product: Yes Have you used tobacco products in the last 12 months: Yes Type of Tobacco Use: Cigarettes How many years tobacco product used: 40 Packs per day or dips/chews per day: 2 Does any household member use tobacco: No Alcohol Use: None Drug Use: None Prescription drug monitoring program results: PDMP reviewed and no concerns identified Medications Home Medications: No Known Drug Allergies Allergy (Verified 11/05/21 15:45) CONTINUE taking the following medications apixaban [Eliquis] 5 mg PO BID 04/08/22 [History] linaclotide [Linzess] 145 mcg PO QAM 04/08/22 [History] Labs Result Diagrams: 04/08/22 16:19 04/08/22 16:19 Labs: Laboratory WBC 10.5 X10^3/uL (3.6-10.0) H 04/08/22 16:19 RBC 5.08 X10^6/uL (4.7-6.0) 04/08/22 16:19 Hgb 14.3 g/dL (13.5-18.0) 04/08/22 16:19 Hct 42.7 % (42.0-54.0) 04/08/22 16:19 MCV 84.0 fL (80.0-100.0) 04/08/22 16:19 MCH 28.2 pg (27.0-34.0) 04/08/22 16:19 MCHC 33.5 g/dL (33.0-35.0) 04/08/22 16:19 RDW 13.9 % (11.6-16.5) 04/08/22 16:19 Plt Count 287 X10^3/uL (150.0-450.0) 04/08/22 16:19 MPV 7.3 fL (7.4-11.0) L 04/08/22 16:19 Neut % (Auto) 77.2 % (42.0-75.0) H 04/08/22 16:19 Lymph % (Auto) 13.6 % (21.0-51.0) L 04/08/22 16:19 [place] % (Auto) 8.1 % (0.0-13.0) 04/08/22 16:19 Eos % (Auto) 0.6 % (0.9-2.9) L 04/08/22 16:19 Baso % (Auto) 0.5 % (0.2-1.0) 04/08/22 16:19 Neut # (Auto) 8.1 x10^3/uL (2.2-4.8) H 04/08/22 16:19 Lymph # (Auto) 1.4 X10^3/uL (1.3-2.9) 04/08/22 16:19 [place] # (Auto) 0.9 x10^3/uL (0.3-0.8) H 04/08/22 16:19 Eos # (Auto) 0.1 x10^3/uL (0.0-0.2) 04/08/22 16:19 Baso # (Auto) 0.1 X10^3/uL (0.0-0.1) 04/08/22 16:19 Absolute Nucleated RBC 0.0 /100WBC 04/08/22 16:19 PT 15.3 SECONDS (11.8-14.3) 04/08/22 16:19 INR Target Range - 04/08/22 16:19 INR 1.25 (0.8-1.3) 04/08/22 16:19 APTT 36.2 SECONDS (22.9-36.5) 04/08/22 16:19 PTT Comment - 04/08/22 16:19 Sodium 137 mmol/L (136-145) 04/08/22 16:19 Corrected Sodium 138 mmol/L (136-145) 04/08/22 16:19 Potassium 4.3 mmol/L (3.5-5.1) 04/08/22 16:19 Chloride 100 mmol/L (98-107) 04/08/22 16:19 Carbon Dioxide 29.0 mmol/L (21-32) 04/08/22 16:19 BUN 12 mg/dL (7-18) 04/08/22 16:19 Creatinine 0.64 mg/dL (0.70-1.30) L 04/08/22 16:19 Est GFR (MDRD) Af Amer > 60 (>60) 04/08/22 16:19 Est GFR (MDRD) Non-Af > 60 (>60) 04/08/22 16:19 Glucose 130 mg/dL (65-99) H 04/08/22 16:19 Calcium 9.4 mg/dL (8.5-10.1) 04/08/22 16:19 SARS-CoV-2 (PCR) Negative (NEGATIVE) 04/08/22 16:10 Review of Systems Constitutional: No Symptoms Reported and See HPI Eyes: No Symptoms Reported ENT: No Symptoms Reported Respiratory: No Symptoms Reported Cardiovascular: No Symptoms Reported Gastrointestinal: No Symptoms Reported Genitourinary: No Symptoms Reported Musculoskeletal: See HPI Skin: See HPI Neurological: No Symptoms Reported Physical Exam Vital Signs: Temperature 97.9 F Pulse Rate [Bilateral Radial] 75 Respiratory Rate 20 Blood Pressure [Right Arm] 121/55 Blood Pressure [Left Arm] 134/61 O2 Sat by Pulse Oximetry 97 Oriented: Normal, Time, Person and Place Eyes: Normal Ear: Normal Nose: Normal Throat: Normal Respiratory: Clear Throughout Cardiovascular: Normal and Other (palpable femoral pulses bilaterally. Healed right transmetatarsal amputation , gangrenous changes left 4th and 5th toes. Absent pulses at the left ankle noted ) : Normal Auscultation: Bowel Sounds: Normal Palpation: Normal Tenderness: Normal Musculoskeletal: Foot (right transmetatarsal amputation . Gangrene left 4th and 5th toes) Psychiatric: Anxiety Mood Description: Angry Affect: Angry Assessment/Plan (1) Hypertension: Status: Acute Plan: Home medications (2) Critical limb ischemia of left lower extremity with gangrene: Status: Acute Plan: Will need atherectomy and angioplasty , possible stenting of the left superficial femoral artery and then left transmetatarsal amputation (3) Tobacco abuse disorder: Status: Acute Plan: Nicotine patches .
[2022-04-09] MEDS: LR 1,000 ML IV 1,000 ML IV SCH ×3 (02:01→20:09)
[2022-04-09] MEDS: DILAUDID INJ IVP PRN ×4 (05:55→19:40)
--- NOTE | 2022-04-09 08:39 | DR.CONSULT ---
CONSULT Consultation for Day of: Date: 04/09/22 Chief Complaint Chief Complaint: Left foot pain. Allergies Allergies Allergy/AdvReac Type Severity Reaction Status Date / Time No Known Drug Allergies Allergy Verified 11/05/21 15:45 History of Present Illness History of Present Illness: Mr. Onofre is a 61 yo male with vascular disease and right foot TMA. He presents with a painful left lower extremity. Communication was done with pen and paper due to Hx of being deaf and mute. He is well known to our practice. He is unsure how long this has been bothering him. He relates pain of 5/10 to the left Lower extremity. He relates the pain is worse in the thigh than the foot. He denies any f/c/n/v/sob/calf pain. Past Medical History Past Medical History: Hypertension Additional Medical History: Patient with heavy smoking history. Patient has been deaf since but is educated, can read and write ( that is how we communicated ) and is oriented to person , place and time. History also obtained from his sister over the phone. Past Surgical History Surgical History: Ortho Surgery and Other Additional Surgical History: History of femoral femoral bypass for occluded left common iliac and femoral popliteal bypass for severe ischemia right leg done in December of 2020. All this appears to be occluded now . At that time he was prepared for amputation of the right great toe. His sister notes that he is non- compliant with treatment. He continues to smoke cigarettes heavily and takes no other medications despite having recognized high blood pressure on admission. Family History Family Medical History: Heart Failure Social History Does patient currently use any type of tobacco product: Yes Have you used tobacco products in the last 12 months: Yes Type of Tobacco Use: Cigarettes How many years tobacco product used: 40 Packs per day or dips/chews per day: 2 Does any household member use tobacco: No Alcohol Use: None Drug Use: None Medications Home Medications: No Known Drug Allergies Allergy (Verified 11/05/21 15:45) CONTINUE taking the following medications apixaban [Eliquis] 5 mg PO BID 04/08/22 [History] linaclotide [Linzess] 145 mcg PO QAM 04/08/22 [History] Physical Exam Vital Signs: Temperature 98.4 F Pulse Rate [Bilateral Radial] 59 Respiratory Rate 20 Blood Pressure [Right Arm] 119/56 Blood Pressure [Left Arm] 134/61 O2 Sat by Pulse Oximetry 96 Tenderness: Other (Patient has pain on palpation of the left foot. Right foot tma. ) Skin: Other (Left foot with ischemic changes to the 4th and 5th digits, they are dry, hard and gangrenous. No open wounds or drainage. The left foot is cold to touch. Skin overall is atrophic. ) Musculoskeletal: Left Plan (1) Hypertension: Status: Acute (2) Critical limb ischemia of left lower extremity with gangrene: Status: Acute Plan: Mr. Onofre is a 61 yo with left foot dry gangrene along the 4th and 5th digits and PVD. Hx of smoking. CTA with evidence of vascular disease. He is with VSS and NAD. Plan: Betadine paint to the left foot daily Vascular following appreciate recs Discussed with Dr. Hogan. Tentative plan for vascular intervention either today or tomorrow. NPO after midnight for possible TMA Left foot xray Will monitor. Please do not hesitate to contact me with questions or concerns. Laron Martini DPM Fellow [phone] (3) Tobacco abuse disorder: Status: Acute
--- NOTE | 2022-04-09 09:20 | RAD ---
HISTORYPeripheral vascular diseaseSTUDYLeft foot three viewsCOMPARISONNoneFINDINGSThe bones are markedly osteopenic. There is no evidence for fracture, lytic, or blastic lesion. No erosive arthritis is identified. No soft tissue abnormality is identified. No soft tissue gas is identified. The tarsal bones are intact and normally aligned. The Lisfranc joint is intact.IMPRESSIONMarked osteopeniaNo other significant findingsElectronically signed by: CHARU GAMBOA (April 09, 2022 09:19:37)
[2022-04-09] MEDS: FIBERCON or FIBER-LAX PO SCH (09:52)
[2022-04-09] MEDS: LOPRESSOR TAB 25 MG PO SCH ×2 (09:53→21:01)
[2022-04-09] MEDS: NICOTINE PATCH TD SCH (09:59)
[2022-04-09 22:13] LABS: ALANINE AMINOTRANSFERASE 15 Units/L (12-78); ALBUMIN 3.4 g/dL (3.4-5.0); ALKALINE PHOSPHATASE 83 Units/L (46-116); ASPARTATE AMINO TRANSFERASE 14 Units/L (15-37); TOTAL PROTEIN 7.4 g/dL (6.4-8.2)
--- NOTE | 2022-04-09 22:21 | NOTE.SOAP ---
Soap Note Note for Day of Date of Exam: 04/09/22 Subjective Data Subjective Data: Pain of left foot under better control. No further change of the left foot. Dry gangrene of the left 4th and 5th toes. Objective Data Temperature: 98.3 F Pulse Rate: 65 Respiratory Rate: 20 Blood Pressure: 120/57 O2 Sat by Pulse Oximetry: 94 Objective Data: dry gangrene left 4th and 5th toes. No palpable distal pulses left ankle Assessment Assessment: left SFA occlusion. Right external iliac stenosis. Plan Plan: Aortogram, stenting right external iliac artery, athererectomy and angioplasty , possible stenting left SFA. May need antegrade and retrograde approaches .Risks and benefits discussed with the patient in writing as he is deaf. He agrees to proceed.
[2022-04-10] MEDS: LR 1,000 ML IV 1,000 ML IV SCH ×6 (04:12→18:57)
[2022-04-10] MEDS: DILAUDID INJ IVP PRN ×3 (04:13→20:36)
[2022-04-10 04:58] LABS: BASOPHILS # (AUTO) 0.1 X10^3/uL (0.0-0.1); BASOPHILS % (AUTO) 0.7 % (0.2-1.0); EOSINOPHILS # (AUTO) 0.1 x10^3/uL (0.0-0.2); EOSINOPHILS % (AUTO) 1.6 % (0.9-2.9); HEMATOCRIT 39.7 % (42.0-54.0); HEMOGLOBIN 13.3 g/dL (13.5-18.0); LYMPHOCYTES # (AUTO) 1.5 X10^3/uL (1.3-2.9); LYMPHOCYTES % (AUTO) 18.7 % (21.0-51.0); MEAN CORPUSCULAR HGB CONC 33.5 g/dL (33.0-35.0); MEAN CORPUSCULAR VOLUME 83.6 fL (80.0-100.0); MEAN PLATELET VOLUME 8.5 fL (7.4-11.0); MONOCYTES # (AUTO) 0.7 x10^3/uL (0.3-0.8); MONOCYTES % (AUTO) 9.5 % (0.0-13.0); NEUTROPHILS # (AUTO) 5.5 x10^3/uL (2.2-4.8); NEUTROPHILS % (AUTO) 69.5 % (42.0-75.0); RED BLOOD COUNT 4.75 X10^6/uL (4.7-6.0); RED CELL DISTRIBUTION WIDTH 13.9 % (11.6-16.5); WHITE BLOOD COUNT 7.9 X10^3/uL (3.6-10.0)
[2022-04-10] MEDS: FIBERCON or FIBER-LAX PO SCH (08:17)
[2022-04-10] MEDS: LOPRESSOR TAB 25 MG PO SCH ×2 (08:46→20:36)
[2022-04-10] MEDS: NICOTINE PATCH TD SCH (08:46)
[2022-04-10] MEDS ORDERED: BRIDION ONE (12:59)
[2022-04-10] MEDS ORDERED: XYLOCAINE 2 % (PLAIN) ONE (12:59)
[2022-04-10] MEDS ORDERED: DIPRIVAN VIAL 20 ML ONE (12:59)
[2022-04-10] MEDS ORDERED: ZOFRAN INJ 4 MG VIAL ONE (13:00)
[2022-04-10] MEDS ORDERED: PEPCID 20 MG VIAL ONE (13:00)
[2022-04-10] MEDS ORDERED: ZEMURON 100 MG VIAL ONE (13:00)
[2022-04-10] MEDS ORDERED: VERSED ONE (13:00)
[2022-04-10] MEDS ORDERED: FENTANYL VIAL INJ 100 mcg ONE (13:01)
[2022-04-10] MEDS ORDERED: SUPRANE ONE ×2 (13:07→15:09)
[2022-04-10] MEDS ORDERED: MARCAINE 0.5% ONE (14:18)
[2022-04-10] MEDS ORDERED: HEPARIN SODIUM IN D5W 75,000 UNITS/1,500 ML BAG ONE (14:18)
[2022-04-10] MEDS ORDERED: NS 100 ML IV 100 ML ONE (14:34)
[2022-04-10] MEDS ORDERED: ANCEF VIAL 1 GRAM ONE (14:34)
[2022-04-10] MEDS ORDERED: XYLOCAINE JELLY TOP ONE (15:09)
[2022-04-10] MEDS ORDERED: BETADINE SOLN ONE (15:17)
[2022-04-10] MEDS ORDERED: EPHEDRINE SULFATE INJ ONE (15:23)
[2022-04-10] MEDS ORDERED: NS 1,000 ML IV 1,000 ML ONE (16:17)
[2022-04-10] MEDS ORDERED: HEPARIN SODIUM INJ 5000 UNITS ONE (16:42)
[2022-04-10] MEDS ORDERED: DILAUDID INJ ONE (17:13)
[2022-04-10] MEDS ORDERED: OFIRMEV IV 1000 MG VIAL 1,000 MG/100 ML VIAL IV ONE (17:22)
[2022-04-10] MEDS ORDERED: PROTAMINE SULFATE 50 MG VIAL ONE (17:30)
--- NOTE | 2022-04-10 18:06 | OR.IMMED ---
IMMEDIATE POST-OP NOTE Immediate Post-Op Note Pre-Op Diagnosis: critical limb threatening ischemia left leg with gangrene left 4th and 45th toes. Post-Op Diagnosis: same Procedure: Aortogram, arteriogram left leg, atherectomy of occluded left iliac stented vessel and complete total occlusion of left SFA with drug coated balloon angioplasty Description of Procedure: see operative summary Surgeon/Die Lay Out Worker: Edison Findings: occluded left iliac artery with stents in place, complete total occlusion left SFA with patent left popliteal and 3 vessel runoff left leg , possible stenosis right distal external iliac artery. Specimens Removed: plaque Estimated Blood Loss: 100cc Drains: NONE Complications: none Discharge Progress Notes: Return to floor, Protocol for removal left ankle tibial band,Begin Xarelto 10 mg po B ID, Will need to address amputation of left forefoot. Condition: Stable Final Diagnosis: as above
[2022-04-10] MEDS: XARELTO PO SCH (20:36)
[2022-04-11] MEDS: LR 1,000 ML IV 1,000 ML IV SCH ×6 (00:18→22:24)
--- NOTE | 2022-04-11 02:38 | DR.OPNOTE ---
OP NOTE Pre-Op Diagnosis: Critical limb ischemia left LE with gangrenous changes left toes Post-Op Diagnosis: same Procedure Date Date Of Procedure: 04/10/22 Procedure: PROCEDURE: diagnostic aortogram, diagnostic arteriogram left lower extremity , atherectomy and drug coated balloon angioplasty of complete total occlusion left iliac artery, atherectomy and drug-coated balloon angioplasty complete total occlusion left superficial femoral artery NARRATIVE: The patient was taken to the operative suite and placed in the Supine position. General endotracheal anesthesia was induced. The right groin and entire left leg were prepped and draped in sterile fashion. Time out for the procedure obtained. Ultrasound used to identify the right common femoral artery and the skin overlying it infiltrated with 0. 5% Marcaine . Ultrasound been used to guide puncture of the right common femoral artery and a 0. 012 inch guide wire placed without difficulty. Incision made over the guide wire at the skin edge with a number 11 knife blade. Micro sheath was placed over the guide wire into the right common femoral artery. The small wire exchanged for a 0. 035 inch Advantage glidewire and the micro sheath exchanged for a 5 Fr vascular sheath . Omni catheter placed and aortogram carried out showing patent aorta and patent right iliac artery ,however the left iliac artery was not patent. I could get no flow down the left side. I was uncomfortable trying to negotiate across the bifurcation due to the fact that the patient has significant stents at the proximal iliac arteries bilaterally. Therefore, I left it to attempt approach in retrograde fashion from the ankle. The left posterior tibial artery was visualized with ultrasound at the ankle and I punctured it with a micropuncture kit and placed a 0.012 inch guidewire . Over the guide wire I placed a micro sheath. Contrast injected through the micro sheath confirmed that I was in the left posterior tibial artery. The [place] directional catheter and 0. 035 inch wire were used to traverse the complete total occlusion of the superficial femoral artery from the adductor canal all the way through the left iliac artery occluded stents into the aorta. Repeat arteriogram confirmed this. [id number] in the left ankle the micro sheath was exchanged for a seven Fr. vascular sheath .Using the [place] directional catheter the 0. 035 inch wire was exchanged for a 0. 014 inch guide wire. The Jet stream device was placed over the 0. 014 inch wire and atherectomy performed of the entire occluded left superficial femoral artery and the entire occluded left external and left common iliac arteries. I then placed a 7 mm by 200 mm [employer] drug-coated balloon into the left iliac artery and inflated it for three minutes. When this was deflated i placed a 6 mm by 200 mm drug coated balloon in the distal superficial femoral artery into the area of the [place] popliteal artery vessel which was patent and ballooned it open for three minutes as well. The proximal superficial femoral artery was the only thing remaining and it was ballooned open with 7 mm by 150 mm [employer] [place] drug-coated balloon and inflated for 3 minutes. Arteriogram showed the left iliac artery, the left superficial artery and the left popliteal arteries were patent . The patient had 3 vessel run off through the anterior tibial, posterior tibial and peroneal arteries. The patient had been given 5000 units of Heparin at the beginning of the case. An additional 3,000 of Heparin was given it 1 hour. At the end of the case the patient given 30 mg of IV protamine and the sheath in the right groin and the sheath at the left ankle were discontinued and pressure held for 10 minutes in the right groin. A tibial band was placed over the puncture site of the left posterior tibial artery with plans to deflate it according to protocol. The patient tolerated the procedure well. He was extubated and taken to PACU. He now had a palpable pulse in the left groin which had not been there before. Type of Anesthesia: Local (0.5 % Marcaine ) and General Anesthetic w/ETT Findings: Complete total occlusion left common iliac and left external iliac arteries, complete total occlusion entire left superficial femoral artery ,patent popliteal artery and three vessel run off left leg . Specimen/Pathology: plaque Type of Fluids Used:: Lactated Ringers Total Amount of Fluid Infused:: 900 cc Urine output: 300 cc EBL: 100 cc Drains/Tubes Placed: None Complications:: none Needle/Sponge Count:: correct Disposition/Condition: Pt. tolerated procedure without difficulty. Extubated in the OR and taken to PACU in stable condition.
[2022-04-11] MEDS: DILAUDID INJ IVP PRN ×3 (03:54→21:05)
[2022-04-11 06:17] LABS: BASOPHILS # (AUTO) 0.1 X10^3/uL (0.0-0.1); BASOPHILS % (AUTO) 0.7 % (0.2-1.0); EOSINOPHILS % (AUTO) 0.4 % (0.9-2.9); HEMATOCRIT 37.5 % (42.0-54.0); HEMOGLOBIN 12.5 g/dL (13.5-18.0); LYMPHOCYTES # (AUTO) 0.9 X10^3/uL (1.3-2.9); LYMPHOCYTES % (AUTO) 10.3 % (21.0-51.0); MEAN CORPUSCULAR HEMOGLOBIN 27.8 pg (27.0-34.0); MEAN CORPUSCULAR HGB CONC 33.3 g/dL (33.0-35.0); MEAN CORPUSCULAR VOLUME 83.3 fL (80.0-100.0); MEAN PLATELET VOLUME 8.1 fL (7.4-11.0); MONOCYTES # (AUTO) 0.9 x10^3/uL (0.3-0.8); MONOCYTES % (AUTO) 10.8 % (0.0-13.0); NEUTROPHILS # (AUTO) 6.6 x10^3/uL (2.2-4.8); NEUTROPHILS % (AUTO) 77.8 % (42.0-75.0); RED CELL DISTRIBUTION WIDTH 13.5 % (11.6-16.5); WHITE BLOOD COUNT 8.5 X10^3/uL (3.6-10.0)
[2022-04-11 06:26] LABS: BLOOD UREA NITROGEN 7 mg/dL (7-18); CALCIUM 8.5 mg/dL (8.5-10.1); CARBON DIOXIDE 29.5 mmol/L (21-32); CHLORIDE 103 mmol/L (98-107); COR NA(FOR HYPERGLY) 138 mmol/L (136-145); CREATININE 0.59 mg/dL (0.70-1.30); SODIUM 138 mmol/L (136-145); eGFR NON BLACK RACES > 60 (>60)
[2022-04-11] MEDS: FIBERCON or FIBER-LAX PO SCH (08:53)
[2022-04-11] MEDS: XARELTO PO SCH (08:54)
[2022-04-11] MEDS: LOPRESSOR TAB 25 MG PO SCH ×2 (08:54→20:57)
[2022-04-11] MEDS: NICOTINE PATCH TD SCH (09:04)
[2022-04-11] MEDS: PERCOCET TAB 5/325 MG PO PRN (09:06)
--- NOTE | 2022-04-11 13:44 | PCM.PROG ---
Progress Note Progress Note for Day of Date of Exam: 04/11/22 Subjective Subjective: Mr. Onofre is 61 yo male with left LE vascular disease. He is s/p revascularization on 04/[address] Hogan. He is doing well. Minimal pain. He denies any f/c/n/v/sob/calf pain. Past Medical Family Social History Past Med/Fam/Surg Hx: No changes since H&P Allergies: Allergies No Known Drug Allergies Allergy (Verified 11/05/21 15:45) Vital Signs and I&O's Vital Signs: Temperature 98.1 F Pulse Rate [Bilateral Radial] 76 Pulse Rate 66 Respiratory Rate 20 Blood Pressure [Right Arm] 152/69 Blood Pressure [Left Arm] 134/61 Blood Pressure 138/63 O2 Sat by Pulse Oximetry 97 Intake and Output: Intake & Output 04/08/22 04/09/22 04/10/22 04/11/22 23:59 23:59 23:59 23:59 Intake Total 120 / 120 4042 / 4042 3730 / 3730 1160 / 1160 Output Total 400 / 400 2165 / 2165 1325 / 1325 1700 / 1700 Balance -280 / -280 1877 / 1877 2405 / 2405 -540 / -540 Physical Exam Oriented: Normal, Time, Person and Place Eyes: Normal Ear: Normal Nose: Normal Throat: Normal Cardiovascular: Normal and Other (palpable femoral pulses bilaterally. Healed right transmetatarsal amputation , gangrenous changes left 4th and 5th toes. Absent pulses at the left ankle noted ) : Normal Auscultation: Bowel Sounds: Normal Tenderness: Other (Patient has pain on palpation of the left foot. Right foot tma. ) Skin: Other (Left foot with ischemic changes to the 4th and 5th digits, they are dry, hard and gangrenous. No open wounds or drainage. The left foot is cold to touch. Skin overall is atrophic. ) Musculoskeletal: Left Psychiatric: Anxiety Mood Description: Calm Affect: Normal Speech Pattern: Aphasic Laboratory and Diagnostics Result Diagrams: 04/12/22 03:08 04/12/22 03:08 Labs: Laboratory WBC 8.5 X10^3/uL (3.6-10.0) 04/11/22 05:20 RBC 4.50 X10^6/uL (4.7-6.0) L 04/11/22 05:20 Hgb 12.5 g/dL (13.5-18.0) L 04/11/22 05:20 Hct 37.5 % (42.0-54.0) L 04/11/22 05:20 MCV 83.3 fL (80.0-100.0) 04/11/22 05:20 MCH 27.8 pg (27.0-34.0) 04/11/22 05:20 MCHC 33.3 g/dL (33.0-35.0) 04/11/22 05:20 RDW 13.5 % (11.6-16.5) 04/11/22 05:20 Plt Count 191 X10^3/uL (150.0-450.0) 04/11/22 05:20 MPV 8.1 fL (7.4-11.0) 04/11/22 05:20 Neut % (Auto) 77.8 % (42.0-75.0) H 04/11/22 05:20 Lymph % (Auto) 10.3 % (21.0-51.0) L 04/11/22 05:20 [place] % (Auto) 10.8 % (0.0-13.0) 04/11/22 05:20 Eos % (Auto) 0.4 % (0.9-2.9) L 04/11/22 05:20 Baso % (Auto) 0.7 % (0.2-1.0) 04/11/22 05:20 Neut # (Auto) 6.6 x10^3/uL (2.2-4.8) H 04/11/22 05:20 Lymph # (Auto) 0.9 X10^3/uL (1.3-2.9) L 04/11/22 05:20 [place] # (Auto) 0.9 x10^3/uL (0.3-0.8) H 04/11/22 05:20 Eos # (Auto) 0.0 x10^3/uL (0.0-0.2) 04/11/22 05:20 Baso # (Auto) 0.1 X10^3/uL (0.0-0.1) 04/11/22 05:20 Absolute Nucleated RBC 0.0 /100WBC 04/11/22 05:20 PT 15.3 SECONDS (11.8-14.3) 04/08/22 16:19 INR Target Range - 04/08/22 16:19 INR 1.25 (0.8-1.3) 04/08/22 16:19 APTT 36.2 SECONDS (22.9-36.5) 04/08/22 16:19 PTT Comment - 04/08/22 16:19 Sodium 138 mmol/L (136-145) 04/11/22 05:20 Corrected Sodium 138 mmol/L (136-145) 04/11/22 05:20 Potassium 3.9 mmol/L (3.5-5.1) 04/11/22 05:20 Chloride 103 mmol/L (98-107) 04/11/22 05:20 Carbon Dioxide 29.5 mmol/L (21-32) 04/11/22 05:20 BUN 7 mg/dL (7-18) 04/11/22 05:20 Creatinine 0.59 mg/dL (0.70-1.30) L 04/11/22 05:20 Est GFR (MDRD) Af Amer > 60 (>60) 04/11/22 05:20 Est GFR (MDRD) Non-Af > 60 (>60) 04/11/22 05:20 Glucose 117 mg/dL (65-99) H 04/11/22 05:20 Calcium 8.5 mg/dL (8.5-10.1) 04/11/22 05:20 Corrected Calcium TNP 04/08/22 16:19 Total Bilirubin 0.30 mg/dL (0.2-1.0) 04/08/22 16:19 AST 14 Units/L (15-37) L 04/08/22 16:19 ALT 15 Units/L (12-78) 04/08/22 16:19 Alkaline Phosphatase 83 Units/L (46-116) 04/08/22 16:19 Total Protein 7.4 g/dL (6.4-8.2) 04/08/22 16:19 Albumin 3.4 g/dL (3.4-5.0) 04/08/22 16:19 Globulin 4.0 g/dL (2.5-4.5) 04/08/22 16:19 Albumin/Globulin Ratio 0.9 Ratio (1.1-2.1) L 04/08/22 16:19 SARS-CoV-2 (PCR) Negative (NEGATIVE) 04/08/22 16:10 Plan (1) Hypertension: Status: Acute Plan: Home medications (2) Critical limb ischemia of left lower extremity with gangrene: Status: Acute Plan: Mr. Onofre is a 61 yo male with PVD. He is s/p left LE revascularization. The 4th and 5th digits are dry and gangrenous and not viable. The 1st digit is also very dusky. He would benefit from a transmetatarsal amputation. He is with VSS and NAD. No leukocytosis. Plan: continue to paint betadine on the left foot daily. NPO after midnight. Start Heparin in place of Xarelto. Hold Heparin am dose if ok with Dr. Hogan. Plan for TMA tomorrow. WBAT on the left foot. Will monitor. Please do not hesitate to contact me with questions or concerns. Laron Martini DPM Fellow [phone] (3) Tobacco abuse disorder: Status: Acute Plan: Nicotine patches .
[2022-04-11] MEDS ORDERED: HEPARIN SODIUM IN D5W 25,000 UNITS/500 ML BAG IV PRN (21:00)
[2022-04-12] MEDS: DILAUDID INJ IVP PRN ×3 (03:06→20:59)
[2022-04-12 03:28] LABS: BASOPHILS % (AUTO) 0.4 % (0.2-1.0); EOSINOPHILS # (AUTO) 0.1 x10^3/uL (0.0-0.2); EOSINOPHILS % (AUTO) 0.8 % (0.9-2.9); HEMATOCRIT 33.6 % (42.0-54.0); HEMOGLOBIN 11.2 g/dL (13.5-18.0); LYMPHOCYTES % (AUTO) 13.3 % (21.0-51.0); MEAN CORPUSCULAR HEMOGLOBIN 28.2 pg (27.0-34.0); MEAN CORPUSCULAR HGB CONC 33.4 g/dL (33.0-35.0); MEAN CORPUSCULAR VOLUME 84.4 fL (80.0-100.0); MEAN PLATELET VOLUME 7.5 fL (7.4-11.0); MONOCYTES # (AUTO) 0.9 x10^3/uL (0.3-0.8); MONOCYTES % (AUTO) 12.4 % (0.0-13.0); NEUTROPHILS # (AUTO) 5.2 x10^3/uL (2.2-4.8); NEUTROPHILS % (AUTO) 73.1 % (42.0-75.0); RED BLOOD COUNT 3.98 X10^6/uL (4.7-6.0); RED CELL DISTRIBUTION WIDTH 13.7 % (11.6-16.5); WHITE BLOOD COUNT 7.2 X10^3/uL (3.6-10.0)
[2022-04-12 03:35] LABS: ALANINE AMINOTRANSFERASE 18 Units/L (12-78); ALKALINE PHOSPHATASE 59 Units/L (46-116); ASPARTATE AMINO TRANSFERASE 93 Units/L (15-37); BLOOD UREA NITROGEN 4 mg/dL (7-18); CALCIUM 7.9 mg/dL (8.5-10.1); CARBON DIOXIDE 28.4 mmol/L (21-32); CHLORIDE 103 mmol/L (98-107); COR CA(FOR HYPOALB) 9.5 mg/dL (8.5-10.1); CREATININE 0.45 mg/dL (0.70-1.30); SODIUM 138 mmol/L (136-145); eGFR NON BLACK RACES > 60 (>60)
[2022-04-12] MEDS ORDERED: HEPARIN SODIUM INJ 5000 UNITS IVP PRN (03:42)
[2022-04-12] MEDS ORDERED: HEPARIN SODIUM INJ 5000 UNITS ONE (03:45)
[2022-04-12] MEDS: LR 1,000 ML IV 1,000 ML IV SCH ×4 (06:18→17:52)
[2022-04-12] MEDS: FIBERCON or FIBER-LAX PO SCH (08:26)
[2022-04-12] MEDS: NICOTINE PATCH TD SCH (08:58)
[2022-04-12] MEDS: PERCOCET TAB 5/325 MG PO PRN ×3 (09:15→23:07)
[2022-04-12] MEDS: LOPRESSOR TAB 25 MG PO SCH ×2 (09:15→20:59)
[2022-04-12] MEDS ORDERED: NS 1,000 ML IV 1,000 ML ONE (13:56)
[2022-04-12] MEDS ORDERED: MARCAINE 0.25% INJ ONE (13:58)
[2022-04-12] MEDS ORDERED: BETADINE SOLN ONE (13:58)
[2022-04-12] MEDS ORDERED: ANCEF VIAL 1 GRAM ONE ×2 (14:03→14:35)
[2022-04-12] MEDS ORDERED: NS 100 ML IV 0 ML ONE (14:03)
--- NOTE | 2022-04-12 14:13 | NOTE.SOAP ---
Soap Note Note for Day of Date of Exam: 04/12/22 Subjective Data Subjective Data: Left foot warm For left transmetatarsal amputation later today. Pain is under control. Objective Data Temperature: 97.9 F Pulse Rate: 64 Respiratory Rate: 22 Blood Pressure: 189/100 O2 Sat by Pulse Oximetry: 98 Objective Data: Left foot warm. Palpable pulse in the left groin which was not present pre-op. Assessment Assessment: Critical limb ischemia left fot, S/P revascularization of left leg with atherectomy and drug coated balloon angioplasty of the left iliac artery and the left SFA. Doing well. Plan Plan: Will hold heparin drip at noon today in anticipation of left transmetatarsal amputation of the left foot later today by the Podiatry service . Will Start back on Xarelto post op and hopefully d/c home tomorrow with home health referral.
[2022-04-12] MEDS ORDERED: ZOFRAN INJ 4 MG VIAL ONE (14:15)
[2022-04-12] MEDS ORDERED: PEPCID 20 MG VIAL ONE (14:15)
[2022-04-12] MEDS ORDERED: OFIRMEV IV 1000 MG VIAL 1,000 MG/100 ML VIAL IV ONE (14:18)
[2022-04-12] MEDS ORDERED: VERSED ONE (14:20)
[2022-04-12] MEDS ORDERED: FENTANYL VIAL INJ 100 mcg ONE (14:20)
--- NOTE | 2022-04-12 14:35 | NOTE.SOAP ---
Soap Note Note for Day of Date of Exam: 04/11/22 Subjective Data Subjective Data: Patient doing well after revascularization of the left leg with intervention of the left iliac artery and left superficial femoral artery. Objective Data Temperature: 98.0 F Pulse Rate: 76 Respiratory Rate: 18 Blood Pressure: 152/69 O2 Sat by Pulse Oximetry: 97 Objective Data: On heparin drip. palpable pulse in left groin. Biphasic doppler signal in the left dorsalis pedis . Left foot now warm. Still with gangrenous changes of the left 4th and 5th toes and evidence early gangrene of the left great toe. Assessment Assessment: Critical ischemia left leg, much improved. Plan Plan: Continue heparin drip. Podiatry to do left transmetatarsal amputation 04/12/2022
[2022-04-12] MEDS ORDERED: NS 100 ML IV 100 ML ONE (14:37)
[2022-04-12] MEDS ORDERED: EPHEDRINE SULFATE INJ ONE (15:21)
--- NOTE | 2022-04-12 20:35 | DR.OPNOTE ---
OP NOTE Pre-Op Diagnosis: Left foot gangrene Post-Op Diagnosis: Left foot gangrene Procedure Date Date Of Procedure: 04/12/22 Procedure: Left foot transmetatarsal amputation Type of Anesthesia: General Anesthetic w/ETT Findings: See dictation Specimen/Pathology: Wound cultures to micro Metatarsal heads 1 through 5 sent to pathology EBL: 150 Complications:: None Needle/Sponge Count:: Correct Disposition/Condition: Podiatric Surgery Operative Report Patient: Wili Onofre Date of procedure: 04/12/22 Surgeon: Laron Martini DPM On Air Director: None Pre-Op Diagnosis: Left foot gangrene Post Op Diagnosis: Left foot gangrene Procedure: Procedure(s): Left foot transmetatarsal amputation Left application of a posterior splint Anesthesia: General Hemostasis: Electrocautery Estimated Blood Loss: <150cc Specimens: Wound culture sent to micro for evaluation Right 1st metatarsal specimen sent to path for clear margin Right 2nd metatarsal specimen sent to path for clear margin Right 3rd metatarsal specimen sent to path for clear margin Right 4th metatarsal specimen sent to path for clear margin Right 5th metatarsal specimen sent to path for clear margin Products Used: 2-0 Monocryl, 2-0 and 3-0 Nylon Complications: None Patient Condition: Stable Indication for Procedure The patient has been suffering with a left foot dry gangrene along 4th and 5th digits. The left hallux was also dusky and did not appear viable. Patient with a Hx of smoking and significant vascular disease. I discussed with the patient at length his options and that he would benefit from a trans metatarsal amputation. Further surgical intervention was discussed with the patient at length including the course of the procedure and post-operative care, as well as future plan of care and follow up. The benefits, including reduction in pain, reduction in risk of infection, reduction in deformity, improved gait, better quality of life was discussed. Risks were also discussed at length; Those discussed include, but were not limited to: residual or new onset infection, increase in pain, bleeding, loss of toe, or foot amputation, DVT, PE, adverse reaction to anesthesia, and the low but present risk of loss of life. The patient related understanding of the surgical course and post-operative expectations, the potential benefits of the procedure, and the inherent risks of this surgical procedure. Consent was presented, discussed, and kindly signed by the patient. Procedure in Detail The patient was brought into the operating room and safely transferred to the operating table in the supine position. General anesthesia was induced. A tourniquet was then applied to the left ankle but was not inflated throughout the procedure. Patient was given preoperative antibiotics. The left foot and ankle were then scrubbed, prepped and draped in a meticulous aseptic manner. A time-out was held and pertinent information including the patient name, allergies, surgical site, laterality, antibiotics, and fire risk were reviewed. Procedure #1: Attention was then directed to the left foot. The 4th and 5th digits were dry, gangrenous and hard to touch. The 4th and 5th were not viable. I also evaluated the hallux which was cooler to touch and had a very delayed cap fill compared to the rest of the left foot. Next, I used # 15 blade to make a fish mouth incision from the medial first metatarsophalangeal joint to the fifth metatarsophalangeal joint leaving the plantar flap with more length. Next, I used a penetrating towel clamp to grasp the digits and a #15 blade was used to disarticulate the hallux, 2nd, 3rd, 4th and 5th digits. The specimens were sent to pathology for evaluation. Next, I used a millan elevator to reflect the soft tissue from the all 5 of the metatarsals. Next, a bone saw was used to partially resect the 1st through the 5th metatarsal heads. The specimens were then passed off to the back table and sent to pathology for evaluation. Next, a bone rongeur was used excise all non viable soft tissue down to healthy bleeding tissue. Next, the wound was flushed with 3 liters of sterile saline using cysto tubing. Next, the wound was examined with a hemostat with no evidence of purulence or infection. The skin edges were evaluation and showed healthy bleeding. Next, the tendons were then retracted and cut. Next, I used a #15 blade and excised the sesamoids from along the 1st distal first ray. I then reapproximated the skin with no tension and used 2-0 and 3-0 Monocryl for deep closure. Next the superficial skin was reapproximated and sutured using 2-0 Nylon and 3-0 Nylon. Next. I evaluated the flap which showed good capillary fill of less than 5 sec. Procedure #2: Next, the left foot was dressed with xeroform, 4x4s, kerlix, abds cast padding and a well-padded posterior split with sophia wraps. The patient tolerated the procedure and anesthesia well and was transferred to the Recovery Room with vital signs stable. Following a period of postoperative monitoring the patient will be transferred to his inpatient room, including to be Non-weightbearing on the left foot and to keep the dressing dry and intact.
--- NOTE | 2022-04-12 20:40 | PCM.PROG ---
Progress Note Progress Note for Day of Date of Exam: 04/12/22 Subjective Subjective: Mr. Onofre is a 61 yo male who is s/p Left foot TMA. Past Medical Family Social History Past Med/Fam/Surg Hx: No changes since H&P Allergies: Allergies No Known Drug Allergies Allergy (Verified 11/05/21 15:45) Vital Signs and I&O's Vital Signs: Temperature 98.1 F Pulse Rate [Bilateral Radial] 73 Pulse Rate 72 Respiratory Rate 16 Blood Pressure [Right Arm] 153/66 Blood Pressure [Left Arm] 134/61 Blood Pressure 133/62 O2 Sat by Pulse Oximetry 99 Intake and Output: Intake & Output 04/09/22 04/10/22 04/11/22 04/12/22 23:59 23:59 23:59 23:59 Intake Total 4042 / 4042 3730 / 3730 2799 / 2799 5978 / 5978 Output Total 2165 / 2165 1325 / 1325 5150 / 5150 5100 / 5100 Balance 1877 / 1877 2405 / 2405 -2351 / -2351 878 / 878 Physical Exam Oriented: Normal, Time, Person and Place Eyes: Normal Ear: Normal Nose: Normal Throat: Normal Cardiovascular: Normal and Other (palpable femoral pulses bilaterally. Healed right transmetatarsal amputation , gangrenous changes left 4th and 5th toes. Absent pulses at the left ankle noted ) : Normal Auscultation: Bowel Sounds: Normal Tenderness: Other (Patient has pain on palpation of the left foot. Right foot tma. ) Skin: Other (Left foot with ischemic changes to the 4th and 5th digits, they are dry, hard and gangrenous. No open wounds or drainage. The left foot is cold to touch. Skin overall is atrophic. ) Musculoskeletal: Left Psychiatric: Anxiety Mood Description: Calm Affect: Normal Speech Pattern: Aphasic Laboratory and Diagnostics Result Diagrams: 04/12/22 03:08 04/12/22 03:08 Labs: 04/12/22 15:15 Foot - Left Wound Gram Stain - Final Laboratory WBC 7.2 X10^3/uL (3.6-10.0) 04/12/22 03:08 RBC 3.98 X10^6/uL (4.7-6.0) L 04/12/22 03:08 Hgb 11.2 g/dL (13.5-18.0) L 04/12/22 03:08 Hct 33.6 % (42.0-54.0) L 04/12/22 03:08 MCV 84.4 fL (80.0-100.0) 04/12/22 03:08 MCH 28.2 pg (27.0-34.0) 04/12/22 03:08 MCHC 33.4 g/dL (33.0-35.0) 04/12/22 03:08 RDW 13.7 % (11.6-16.5) 04/12/22 03:08 Plt Count 153 X10^3/uL (150.0-450.0) 04/12/22 03:08 MPV 7.5 fL (7.4-11.0) 04/12/22 03:08 Neut % (Auto) 73.1 % (42.0-75.0) 04/12/22 03:08 Lymph % (Auto) 13.3 % (21.0-51.0) L 04/12/22 03:08 [place] % (Auto) 12.4 % (0.0-13.0) 04/12/22 03:08 Eos % (Auto) 0.8 % (0.9-2.9) L 04/12/22 03:08 Baso % (Auto) 0.4 % (0.2-1.0) 04/12/22 03:08 Neut # (Auto) 5.2 x10^3/uL (2.2-4.8) H 04/12/22 03:08 Lymph # (Auto) 1.0 X10^3/uL (1.3-2.9) L 04/12/22 03:08 [place] # (Auto) 0.9 x10^3/uL (0.3-0.8) H 04/12/22 03:08 Eos # (Auto) 0.1 x10^3/uL (0.0-0.2) 04/12/22 03:08 Baso # (Auto) 0.0 X10^3/uL (0.0-0.1) 04/12/22 03:08 Absolute Nucleated RBC 0.0 /100WBC 04/12/22 03:08 PT 19.0 SECONDS (11.8-14.3) 04/11/22 20:25 INR Target Range - 04/11/22 20:25 INR 1.66 (0.8-1.3) H 04/11/22 20:25 APTT 48.7 SECONDS (22.9-36.5) H 04/12/22 09:47 PTT Comment - 04/12/22 09:47 Sodium 138 mmol/L (136-145) 04/12/22 03:08 Corrected Sodium TNP 04/12/22 03:08 Potassium 3.7 mmol/L (3.5-5.1) 04/12/22 03:08 Chloride 103 mmol/L (98-107) 04/12/22 03:08 Carbon Dioxide 28.4 mmol/L (21-32) 04/12/22 03:08 BUN 4 mg/dL (7-18) L 04/12/22 03:08 Creatinine 0.45 mg/dL (0.70-1.30) L 04/12/22 03:08 Est GFR (MDRD) Af Amer > 60 (>60) 04/12/22 03:08 Est GFR (MDRD) Non-Af > 60 (>60) 04/12/22 03:08 Glucose 109 mg/dL (65-99) H 04/12/22 03:08 Calcium 7.9 mg/dL (8.5-10.1) L 04/12/22 03:08 Corrected Calcium 9.5 mg/dL (8.5-10.1) 04/12/22 03:08 Total Bilirubin 0.20 mg/dL (0.2-1.0) 04/12/22 03:08 AST 93 Units/L (15-37) H 04/12/22 03:08 ALT 18 Units/L (12-78) 04/12/22 03:08 Alkaline Phosphatase 59 Units/L (46-116) 04/12/22 03:08 Total Protein 5.0 g/dL (6.4-8.2) L 04/12/22 03:08 Albumin 2.0 g/dL (3.4-5.0) L 04/12/22 03:08 Globulin 3.0 g/dL (2.5-4.5) 04/12/22 03:08 Albumin/Globulin Ratio 0.7 Ratio (1.1-2.1) L 04/12/22 03:08 SARS-CoV-2 (PCR) Negative (NEGATIVE) 04/08/22 16:10 Tissue Pathology To follow 04/12/22 15:15 Plan (1) Hypertension: Status: Acute Plan: Home medications (2) Critical limb ischemia of left lower extremity with gangrene: Status: Acute Plan: Mr. Onofre is a 61 yo male with left foot dry gangrene along the 4th and 5th digits with the first ray also with some duskiness. The left foot did not appear infected. He is s/p left foot TMA, DOS was 04/12. Patient tolerated the procedure well today. The foot was with healthy bleeding, viable skin edges, and the flap had good capillary refill. Plan: Left LE dressed with xeroform, 4x4s, abd, cast padding with posterior splint and sophia He will need to keep this dressing intact until he follows up with me in clinic. He is to follow up with me on , April 18. No home health needed for left foot dressing change. Elevate left LE x 2 pillow. NWB On the left. PT evaluation recommended. Patient will benefit from a few days of antibiotics I am ok for discharge from the foot and ankle standpoint I will follow the pathology and micro outpatient. I discussed the case with Dr. Hogan I discussed this with patients sister who will be taking care of Mr. Onofre once he is discharged. Will monitor. Please do not hesitate to contact me with questions or concerns. Laron Martini DPM Fellow [phone] (3) Tobacco abuse disorder: Status: Acute Plan: Nicotine patches .
[2022-04-12] MEDS: XARELTO PO SCH (20:59)
[2022-04-13] MEDS: LR 1,000 ML IV 1,000 ML IV SCH ×2 (00:46→08:31)
[2022-04-13] MEDS: DILAUDID INJ IVP PRN ×2 (02:00→06:45)
[2022-04-13 04:59] LABS: BASOPHILS % (AUTO) 0.4 % (0.2-1.0); EOSINOPHILS # (AUTO) 0.1 x10^3/uL (0.0-0.2); EOSINOPHILS % (AUTO) 1.1 % (0.9-2.9); HEMATOCRIT 32.7 % (42.0-54.0); HEMOGLOBIN 11.1 g/dL (13.5-18.0); LYMPHOCYTES # (AUTO) 1.1 X10^3/uL (1.3-2.9); LYMPHOCYTES % (AUTO) 12.4 % (21.0-51.0); MEAN CORPUSCULAR HEMOGLOBIN 27.9 pg (27.0-34.0); MEAN CORPUSCULAR HGB CONC 33.8 g/dL (33.0-35.0); MEAN CORPUSCULAR VOLUME 82.8 fL (80.0-100.0); MEAN PLATELET VOLUME 8.4 fL (7.4-11.0); MONOCYTES # (AUTO) 1.1 x10^3/uL (0.3-0.8); MONOCYTES % (AUTO) 11.9 % (0.0-13.0); NEUTROPHILS # (AUTO) 6.8 x10^3/uL (2.2-4.8); NEUTROPHILS % (AUTO) 74.2 % (42.0-75.0); RED BLOOD COUNT 3.96 X10^6/uL (4.7-6.0); RED CELL DISTRIBUTION WIDTH 13.8 % (11.6-16.5); WHITE BLOOD COUNT 9.1 X10^3/uL (3.6-10.0)
[2022-04-13 05:46] LABS: ALANINE AMINOTRANSFERASE 22 Units/L (12-78); ALBUMIN 2.2 g/dL (3.4-5.0); ALKALINE PHOSPHATASE 64 Units/L (46-116); ASPARTATE AMINO TRANSFERASE 96 Units/L (15-37); BLOOD UREA NITROGEN 6 mg/dL (7-18); CARBON DIOXIDE 26.4 mmol/L (21-32); CHLORIDE 105 mmol/L (98-107); COR CA(FOR HYPOALB) 9.4 mg/dL (8.5-10.1); COR NA(FOR HYPERGLY) 139 mmol/L (136-145); CREATININE 0.54 mg/dL (0.70-1.30); SODIUM 138 mmol/L (136-145); TOTAL PROTEIN 5.4 g/dL (6.4-8.2); eGFR NON BLACK RACES > 60 (>60)
[2022-04-13] MEDS: PERCOCET TAB 5/325 MG PO PRN (07:58)
[2022-04-13] MEDS: LOPRESSOR TAB 25 MG PO SCH (08:31)
[2022-04-13] MEDS: NICOTINE PATCH TD SCH (08:31)
[2022-04-13] MEDS: FIBERCON or FIBER-LAX PO SCH (08:31)
[2022-04-13] MEDS: XARELTO PO SCH (08:31)
[2022-04-13 11:42] VITALS: BP 150/71
--- NOTE | 2022-04-13 13:31 | W.DIS.FURT ---
Summary of Discharge Discharge Summary of Date Date of Exam: 04/13/22 Admission Date Date of Admission: 04/08/22 Admission Diagnosis Hospital Course: 61 year old male who has had significant tobacco abuse history and significant vascular reconstruction. 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 He has bilateral iliac artery stents and right superficial femoral artery stent. Since this had a right transmetatarsal amputation which was planned and had been discharged home and was walking with a walker. He presented with gangrenous changes of the left 4th and 5th toes. CT angiogram showed complete total occlusion of the left superficial femoral artery. On table arteriography showed he had a completely occluded left iliac artery and completely occluded left superficial femoral artery. Because of the multiple stents in the iliac arteries he underwent retrograde approach from the left ankle by the posterior tibial artery and had atherectomy and drug coated balloon angioplasty of the iliac artery on the left as well as a superficial femoral artery on the left. Post-procedure he has done well the palpable pulse in the left groin and an excellent doppler signal in the anterior tibial artery on the left side. Yesterday he underwent transmetatarsal amputation of the left foot and is doing well, getting up and going to the bathroom with the aid of a walker and will be discharged today on his usual medications which will include Eliquis 5 mg po BID and aspirin 81 mg today. In addition to his other medications he will be on Clindamycin 150 mg po QID for one week and Percocet 5 mg tablets, one every six hours PRN pain , # 20. He will follow up with the [facility]le service next week and I will see him in two weeks. I have strongly encouraged him not to smoke cigarettes . Vital Signs: Vital Signs (72 hours) 04/10/22 17:13 04/10/22 17:43 04/10/22 17:48 Temperature 97.3 F L Pulse Rate 63 Pulse Rate [Bilateral Radial] Respiratory Rate 18 18 18 Blood Pressure 139/64 Blood Pressure [Right Arm] O2 Sat by Pulse Oximetry 97 04/10/22 17:53 04/10/22 17:58 04/10/22 18:03 Temperature Pulse Rate 67 66 66 Pulse Rate [Bilateral Radial] Respiratory Rate 18 18 18 Blood Pressure 142/55 154/63 142/65 Blood Pressure [Right Arm] O2 Sat by Pulse Oximetry 98 98 98 04/10/22 18:08 04/10/22 18:13 04/10/22 18:18 Temperature Pulse Rate 67 68 66 Pulse Rate [Bilateral Radial] Respiratory Rate 18 18 18 Blood Pressure 144/65 143/65 138/63 Blood Pressure [Right Arm] O2 Sat by Pulse Oximetry 98 98 98 04/10/22 18:30 04/10/22 18:45 04/10/22 19:00 Temperature 98.3 F 98.1 F 98.0 F Pulse Rate Pulse Rate [Bilateral Radial] 68 68 69 Respiratory Rate 18 18 18 Blood Pressure Blood Pressure [Right Arm] 150/65 153/67 142/65 O2 Sat by Pulse Oximetry 96 97 98 04/10/22 19:15 04/10/22 19:30 04/10/22 20:30 Temperature 98.1 F 98.1 F 97.6 F Pulse Rate Pulse Rate [Bilateral Radial] 68 70 70 Respiratory Rate 18 18 18 Blood Pressure Blood Pressure [Right Arm] 155/57 149/65 149/68 O2 Sat by Pulse Oximetry 97 97 97 04/10/22 20:36 04/10/22 21:06 04/10/22 21:30 Temperature 98.4 F Pulse Rate Pulse Rate [Bilateral Radial] 65 Respiratory Rate 18 18 18 Blood Pressure Blood Pressure [Right Arm] 129/61 O2 Sat by Pulse Oximetry 96 04/10/22 22:30 04/10/22 23:30 04/11/22 03:54 Temperature 97.8 F 97.6 F Pulse Rate Pulse Rate [Bilateral Radial] 72 72 Respiratory Rate 18 18 18 Blood Pressure Blood Pressure [Right Arm] 124/59 125/54 O2 Sat by Pulse Oximetry 97 96 04/11/22 04:00 04/11/22 04:24 04/11/22 08:00 Temperature 98.0 F 98.1 F Pulse Rate Pulse Rate [Bilateral Radial] 66 76 Respiratory Rate 18 18 18 Blood Pressure Blood Pressure [Right Arm] 175/71 152/69 O2 Sat by Pulse Oximetry 97 97 04/11/22 09:06 04/11/22 10:06 04/11/22 12:00 Temperature 98.7 F Pulse Rate Pulse Rate [Bilateral Radial] 67 Respiratory Rate 18 20 18 Blood Pressure Blood Pressure [Right Arm] 121/56 O2 Sat by Pulse Oximetry 96 04/11/22 14:30 04/11/22 14:45 04/11/22 15:00 Temperature 98.0 F Pulse Rate 70 68 Pulse Rate [Bilateral Radial] 71 Respiratory Rate 17 19 16 Blood Pressure 174/73 Blood Pressure [Right Arm] 136/63 O2 Sat by Pulse Oximetry 96 96 98 04/11/22 15:15 04/11/22 15:30 04/11/22 15:34 Temperature Pulse Rate 69 70 69 Pulse Rate [Bilateral Radial] 70 Respiratory Rate 16 25 H 28 H Blood Pressure 151/65 Blood Pressure [Right Arm] 151/65 O2 Sat by Pulse Oximetry 97 98 98 04/11/22 15:45 04/11/22 16:00 04/11/22 16:15 Temperature Pulse Rate 69 68 65 Pulse Rate [Bilateral Radial] 68 Respiratory Rate 25 H 14 22 Blood Pressure 158/67 Blood Pressure [Right Arm] 158/67 O2 Sat by Pulse Oximetry 97 97 97 04/11/22 16:30 04/11/22 16:45 04/11/22 17:00 Temperature Pulse Rate 72 67 74 Pulse Rate [Bilateral Radial] Respiratory Rate 25 H 8 L 24 Blood Pressure Blood Pressure [Right Arm] O2 Sat by Pulse Oximetry 96 96 97 04/11/22 17:01 04/11/22 17:15 04/11/22 17:30 Temperature Pulse Rate 73 71 68 Pulse Rate [Bilateral Radial] 73 Respiratory Rate 23 18 22 Blood Pressure 184/79 Blood Pressure [Right Arm] 184/79 O2 Sat by Pulse Oximetry 97 97 97 04/11/22 17:34 04/11/22 17:45 04/11/22 18:00 Temperature Pulse Rate 74 73 Pulse Rate [Bilateral Radial] 73 Respiratory Rate 18 23 16 Blood Pressure 153/66 Blood Pressure [Right Arm] 153/66 O2 Sat by Pulse Oximetry 96 96 04/11/22 18:04 04/11/22 18:15 04/11/22 18:30 Temperature Pulse Rate 74 82 Pulse Rate [Bilateral Radial] Respiratory Rate 18 14 18 Blood Pressure Blood Pressure [Right Arm] O2 Sat by Pulse Oximetry 96 98 04/11/22 18:45 04/11/22 19:00 04/11/22 19:01 Temperature Pulse Rate 76 73 Pulse Rate [Bilateral Radial] Respiratory Rate 19 27 H Blood Pressure 164/71 Blood Pressure [Right Arm] O2 Sat by Pulse Oximetry 96 96 04/11/22 19:15 04/11/22 19:30 04/11/22 19:46 Temperature Pulse Rate 78 74 68 Pulse Rate [Bilateral Radial] Respiratory Rate 19 28 H 22 Blood Pressure Blood Pressure [Right Arm] O2 Sat by Pulse Oximetry 97 96 04/11/22 20:00 04/11/22 20:30 04/11/22 21:00 Temperature 98.4 F Pulse Rate 70 72 74 Pulse Rate [Bilateral Radial] Respiratory Rate 11 L 19 22 Blood Pressure 141/63 Blood Pressure [Right Arm] O2 Sat by Pulse Oximetry 96 100 99 04/11/22 21:01 04/11/22 21:05 04/11/22 21:30 Temperature Pulse Rate 73 66 Pulse Rate [Bilateral Radial] Respiratory Rate 20 22 18 Blood Pressure 149/70 Blood Pressure [Right Arm] O2 Sat by Pulse Oximetry 100 94 L 04/11/22 21:35 04/11/22 22:00 04/11/22 22:30 Temperature Pulse Rate 65 62 Pulse Rate [Bilateral Radial] Respiratory Rate 22 13 14 Blood Pressure 126/59 Blood Pressure [Right Arm] O2 Sat by Pulse Oximetry 94 L 95 04/11/22 23:00 04/11/22 23:01 04/11/22 23:30 Temperature 98.7 F Pulse Rate 64 63 62 Pulse Rate [Bilateral Radial] Respiratory Rate 14 18 18 Blood Pressure 157/69 Blood Pressure [Right Arm] O2 Sat by Pulse Oximetry 96 96 95 04/12/22 00:00 04/12/22 00:03 04/12/22 00:30 Temperature Pulse Rate 63 71 64 Pulse Rate [Bilateral Radial] Respiratory Rate 17 20 19 Blood Pressure 175/73 161/70 Blood Pressure [Right Arm] O2 Sat by Pulse Oximetry 95 98 96 04/12/22 01:00 04/12/22 01:30 04/12/22 02:00 Temperature Pulse Rate 60 53 L 57 L Pulse Rate [Bilateral Radial] Respiratory Rate 19 16 18 Blood Pressure 137/60 Blood Pressure [Right Arm] O2 Sat by Pulse Oximetry 97 98 97 04/12/22 02:01 04/12/22 02:30 04/12/22 03:00 Temperature Pulse Rate 62 56 L 71 Pulse Rate [Bilateral Radial] Respiratory Rate 20 19 28 H Blood Pressure 166/70 Blood Pressure [Right Arm] O2 Sat by Pulse Oximetry 98 98 99 04/12/22 03:01 04/12/22 03:05 04/12/22 03:06 Temperature Pulse Rate 66 67 Pulse Rate [Bilateral Radial] Respiratory Rate 27 H 24 25 H Blood Pressure 194/75 183/76 Blood Pressure [Right Arm] O2 Sat by Pulse Oximetry 99 100 04/12/22 03:14 04/12/22 03:19 04/12/22 03:30 Temperature Pulse Rate 66 63 58 L Pulse Rate [Bilateral Radial] Respiratory Rate 27 H 21 20 Blood Pressure 172/70 150/69 Blood Pressure [Right Arm] O2 Sat by Pulse Oximetry 96 94 L 94 L 04/12/22 03:36 04/12/22 04:00 04/12/22 04:30 Temperature 97.9 F Pulse Rate 62 49 L Pulse Rate [Bilateral Radial] Respiratory Rate 20 19 19 Blood Pressure 128/60 Blood Pressure [Right Arm] O2 Sat by Pulse Oximetry 94 L 99 04/12/22 05:00 04/12/22 05:01 04/12/22 05:30 Temperature Pulse Rate 58 L 57 L 57 L Pulse Rate [Bilateral Radial] Respiratory Rate 19 20 21 Blood Pressure 164/73 Blood Pressure [Right Arm] O2 Sat by Pulse Oximetry 97 98 98 04/12/22 06:00 04/12/22 06:11 04/12/22 06:15 Temperature Pulse Rate 60 68 66 Pulse Rate [Bilateral Radial] Respiratory Rate 19 28 H 14 Blood Pressure 184/79 196/78 189/78 Blood Pressure [Right Arm] O2 Sat by Pulse Oximetry 98 98 98 04/12/22 06:19 04/12/22 06:22 04/12/22 06:30 Temperature Pulse Rate 67 60 Pulse Rate [Bilateral Radial] Respiratory Rate 19 21 17 Blood Pressure 164/72 Blood Pressure [Right Arm] O2 Sat by Pulse Oximetry 95 94 L 04/12/22 06:49 04/12/22 08:24 04/12/22 09:15 Temperature Pulse Rate 67 Pulse Rate [Bilateral Radial] Respiratory Rate 19 13 22 Blood Pressure 157/67 Blood Pressure [Right Arm] O2 Sat by Pulse Oximetry 97 04/12/22 09:21 04/12/22 10:13 04/12/22 10:15 Temperature Pulse Rate 69 57 L Pulse Rate [Bilateral Radial] Respiratory Rate 22 26 H 22 Blood Pressure 174/73 166/74 Blood Pressure [Right Arm] O2 Sat by Pulse Oximetry 99 96 04/12/22 11:42 04/12/22 12:11 04/12/22 13:06 Temperature Pulse Rate 55 L 58 L 64 Pulse Rate [Bilateral Radial] Respiratory Rate 16 16 22 Blood Pressure 162/70 181/76 189/100 Blood Pressure [Right Arm] O2 Sat by Pulse Oximetry 98 98 98 04/12/22 14:13 04/12/22 14:34 04/12/22 16:26 Temperature 97.9 F 98.0 F 97.6 F Pulse Rate 64 76 66 Pulse Rate [Bilateral Radial] Respiratory Rate 22 18 16 Blood Pressure 189/100 152/69 137/62 Blood Pressure [Right Arm] O2 Sat by Pulse Oximetry 98 97 99 04/12/22 16:31 04/12/22 16:36 04/12/22 16:41 Temperature Pulse Rate 61 61 61 Pulse Rate [Bilateral Radial] Respiratory Rate 17 18 18 Blood Pressure 124/59 121/55 127/60 Blood Pressure [Right Arm] O2 Sat by Pulse Oximetry 98 98 96 04/12/22 16:46 04/12/22 16:51 04/12/22 16:56 Temperature 97.6 F Pulse Rate 64 63 63 Pulse Rate [Bilateral Radial] Respiratory Rate 18 17 17 Blood Pressure 126/66 126/60 126/60 Blood Pressure [Right Arm] O2 Sat by Pulse Oximetry 98 97 97 04/12/22 17:00 04/12/22 17:15 04/12/22 17:30 Temperature 98.1 F 98.1 F 98.1 F Pulse Rate 61 63 65 Pulse Rate [Bilateral Radial] Respiratory Rate 20 16 16 Blood Pressure 154/70 164/70 154/67 Blood Pressure [Right Arm] O2 Sat by Pulse Oximetry 96 96 96 04/12/22 17:45 04/12/22 17:52 04/12/22 18:00 Temperature 98.2 F 98.2 F Pulse Rate 66 71 Pulse Rate [Bilateral Radial] Respiratory Rate 14 16 18 Blood Pressure 150/61 159/74 Blood Pressure [Right Arm] O2 Sat by Pulse Oximetry 97 98 04/12/22 18:52 04/12/22 19:00 04/12/22 20:00 Temperature 98.1 F 98.1 F Pulse Rate 71 72 Pulse Rate [Bilateral Radial] Respiratory Rate 16 20 16 Blood Pressure 123/57 133/62 Blood Pressure [Right Arm] O2 Sat by Pulse Oximetry 97 99 04/12/22 20:59 04/12/22 21:00 04/12/22 21:29 Temperature 98.1 F Pulse Rate 78 Pulse Rate [Bilateral Radial] Respiratory Rate 20 17 16 Blood Pressure 152/68 Blood Pressure [Right Arm] O2 Sat by Pulse Oximetry 97 04/12/22 22:00 04/12/22 22:45 04/12/22 22:58 Temperature 98.2 F Pulse Rate 72 65 75 Pulse Rate [Bilateral Radial] Respiratory Rate 22 19 19 Blood Pressure 121/59 Blood Pressure [Right Arm] O2 Sat by Pulse Oximetry 95 95 95 04/12/22 23:00 04/12/22 23:01 04/12/22 23:07 Temperature 98.2 F Pulse Rate 73 75 Pulse Rate [Bilateral Radial] Respiratory Rate 18 12 20 Blood Pressure 140/63 Blood Pressure [Right Arm] O2 Sat by Pulse Oximetry 95 96 04/12/22 23:15 04/12/22 23:30 04/12/22 23:45 Temperature Pulse Rate 74 68 70 Pulse Rate [Bilateral Radial] Respiratory Rate 15 16 15 Blood Pressure 136/65 111/49 145/63 Blood Pressure [Right Arm] O2 Sat by Pulse Oximetry 95 95 97 04/13/22 00:00 04/13/22 00:02 04/13/22 00:07 Temperature Pulse Rate 61 62 Pulse Rate [Bilateral Radial] Respiratory Rate 18 17 18 Blood Pressure 117/56 Blood Pressure [Right Arm] O2 Sat by Pulse Oximetry 98 99 04/13/22 00:14 04/13/22 00:15 04/13/22 00:30 Temperature Pulse Rate 66 72 Pulse Rate [Bilateral Radial] Respiratory Rate 22 15 Blood Pressure 132/61 183/73 Blood Pressure [Right Arm] O2 Sat by Pulse Oximetry 100 99 04/13/22 00:34 04/13/22 01:00 04/13/22 01:01 Temperature Pulse Rate 70 68 71 Pulse Rate [Bilateral Radial] Respiratory Rate 22 14 17 Blood Pressure 140/64 146/72 166/72 Blood Pressure [Right Arm] O2 Sat by Pulse Oximetry 99 98 98 04/13/22 01:30 04/13/22 02:00 04/13/22 02:01 Temperature Pulse Rate 64 65 Pulse Rate [Bilateral Radial] Respiratory Rate 19 12 Blood Pressure 167/73 136/63 136/63 Blood Pressure [Right Arm] O2 Sat by Pulse Oximetry 97 96 04/13/22 02:30 04/13/22 03:00 04/13/22 03:30 Temperature Pulse Rate 66 66 65 Pulse Rate [Bilateral Radial] Respiratory Rate 18 18 11 L Blood Pressure 127/60 137/64 138/62 Blood Pressure [Right Arm] O2 Sat by Pulse Oximetry 93 L 94 L 95 04/13/22 04:00 04/13/22 04:30 04/13/22 05:00 Temperature 98.6 F Pulse Rate 66 63 66 Pulse Rate [Bilateral Radial] Respiratory Rate 18 22 19 Blood Pressure 143/65 148/66 136/63 Blood Pressure [Right Arm] O2 Sat by Pulse Oximetry 94 L 94 L 95 04/13/22 05:30 04/13/22 05:31 04/13/22 06:00 Temperature Pulse Rate 69 68 67 Pulse Rate [Bilateral Radial] Respiratory Rate 15 12 13 Blood Pressure 138/55 156/67 Blood Pressure [Right Arm] O2 Sat by Pulse Oximetry 97 96 96 04/13/22 06:01 04/13/22 06:04 04/13/22 06:30 Temperature Pulse Rate 65 72 Pulse Rate [Bilateral Radial] Respiratory Rate 13 18 Blood Pressure 183/74 156/67 173/74 Blood Pressure [Right Arm] O2 Sat by Pulse Oximetry 98 97 04/13/22 06:39 04/13/22 06:45 04/13/22 07:00 Temperature 98.7 F Pulse Rate 70 73 Pulse Rate [Bilateral Radial] Respiratory Rate 16 24 13 Blood Pressure 154/68 142/65 Blood Pressure [Right Arm] O2 Sat by Pulse Oximetry 98 93 L 04/13/22 07:15 04/13/22 07:30 04/13/22 07:58 Temperature Pulse Rate 80 Pulse Rate [Bilateral Radial] Respiratory Rate 20 22 20 Blood Pressure Blood Pressure [Right Arm] O2 Sat by Pulse Oximetry 94 L 04/13/22 08:00 04/13/22 08:30 04/13/22 08:58 Temperature Pulse Rate 73 Pulse Rate [Bilateral Radial] Respiratory Rate 17 20 Blood Pressure 132/60 Blood Pressure [Right Arm] O2 Sat by Pulse Oximetry 94 L 04/13/22 09:00 04/13/22 09:30 04/13/22 10:00 Temperature Pulse Rate 83 73 72 Pulse Rate [Bilateral Radial] Respiratory Rate 16 18 18 Blood Pressure 138/63 157/65 Blood Pressure [Right Arm] O2 Sat by Pulse Oximetry 95 95 95 04/13/22 10:30 04/13/22 11:00 Temperature Pulse Rate 67 71 Pulse Rate [Bilateral Radial] Respiratory Rate 25 H 22 Blood Pressure 150/71 Blood Pressure [Right Arm] O2 Sat by Pulse Oximetry 94 L 96 Labs: Laboratory Last Values WBC 9.1 X10^3/uL (3.6-10.0) 04/13/22 03:26 RBC 3.96 X10^6/uL (4.7-6.0) L 04/13/22 03:26 Hgb 11.1 g/dL (13.5-18.0) L 04/13/22 03:26 Hct 32.7 % (42.0-54.0) L 04/13/22 03:26 MCV 82.8 fL (80.0-100.0) 04/13/22 03:26 MCH 27.9 pg (27.0-34.0) 04/13/22 03:26 MCHC 33.8 g/dL (33.0-35.0) 04/13/22 03:26 RDW 13.8 % (11.6-16.5) 04/13/22 03:26 Plt Count 170 X10^3/uL (150.0-450.0) 04/13/22 03:26 MPV 8.4 fL (7.4-11.0) 04/13/22 03:26 Neut % (Auto) 74.2 % (42.0-75.0) 04/13/22 03:26 Lymph % (Auto) 12.4 % (21.0-51.0) L 04/13/22 03:26 Mcminn % (Auto) 11.9 % (0.0-13.0) 04/13/22 03:26 Eos % (Auto) 1.1 % (0.9-2.9) 04/13/22 03:26 Baso % (Auto) 0.4 % (0.2-1.0) 04/13/22 03:26 Neut # (Auto) 6.8 x10^3/uL (2.2-4.8) H 04/13/22 03:26 Lymph # (Auto) 1.1 X10^3/uL (1.3-2.9) L 04/13/22 03:26 Mcminn # (Auto) 1.1 x10^3/uL (0.3-0.8) H 04/13/22 03:26 Eos # (Auto) 0.1 x10^3/uL (0.0-0.2) 04/13/22 03:26 Baso # (Auto) 0.0 X10^3/uL (0.0-0.1) 04/13/22 03:26 Absolute Nucleated RBC 0.0 /100WBC 04/13/22 03:26 PT 19.0 SECONDS (11.8-14.3) 04/11/22 20:25 INR Target Range - 04/11/22 20:25 INR 1.66 (0.8-1.3) H 04/11/22 20:25 APTT 48.7 SECONDS (22.9-36.5) H 04/12/22 09:47 PTT Comment - 04/12/22 09:47 Sodium 138 mmol/L (136-145) 04/13/22 03:26 Corrected Sodium 139 mmol/L (136-145) 04/13/22 03:26 Potassium 3.8 mmol/L (3.5-5.1) 04/13/22 03:26 Chloride 105 mmol/L (98-107) 04/13/22 03:26 Carbon Dioxide 26.4 mmol/L (21-32) 04/13/22 03:26 BUN 6 mg/dL (7-18) L 04/13/22 03:26 Creatinine 0.54 mg/dL (0.70-1.30) L 04/13/22 03:26 Est GFR (MDRD) Af Amer > 60 (>60) 04/13/22 03:26 Est GFR (MDRD) Non-Af > 60 (>60) 04/13/22 03:26 Glucose 151 mg/dL (65-99) H 04/13/22 03:26 Calcium 8.0 mg/dL (8.5-10.1) L 04/13/22 03:26 Corrected Calcium 9.4 mg/dL (8.5-10.1) 04/13/22 03:26 Total Bilirubin 0.20 mg/dL (0.2-1.0) 04/13/22 03:26 AST 96 Units/L (15-37) H 04/13/22 03:26 ALT 22 Units/L (12-78) 04/13/22 03:26 Alkaline Phosphatase 64 Units/L (46-116) 04/13/22 03:26 Total Protein 5.4 g/dL (6.4-8.2) L 04/13/22 03:26 Albumin 2.2 g/dL (3.4-5.0) L 04/13/22 03:26 Globulin 3.2 g/dL (2.5-4.5) 04/13/22 03:26 Albumin/Globulin Ratio 0.7 Ratio (1.1-2.1) L 04/13/22 03:26 SARS-CoV-2 (PCR) Negative (NEGATIVE) 04/08/22 16:10 Tissue Pathology To follow 04/12/22 15:15 Reason For Visit: NEW ONSET ISCHEMIA Discharge Date Discharge Date: 04/13/22 Discharge Diagnosis All Active Problems (Updated 04/08/22 @ 23:00 by Vasquez Hogan) Critical limb ischemia of left lower extremity with gangrene (Acute) Hypertension (Acute) Tobacco abuse disorder (Acute) Constipation (Acute) Critical limb ischemia of left lower extremity (Acute) Critical limb ischemia of right lower extremity with gangrene (Acute) Ischemic pain of right foot (Acute) Plan of Treatment: Continue with present treatment and follow up plan. Pt is to keep follow up appointment as instructed and take medications as ordered. Discharge Medications Discharge Medications: No Known Drug Allergies Allergy (Verified 11/05/21 15:45) CONTINUE taking the following medications Eliquis 5 mg PO BID 04/08/22 [History] Linzess 145 mcg PO QAM 04/08/22 [History] New Prescriptions clindamycin HCl 150 mg PO QID #28 cap 04/13/22 [Rx] oxycodone-acetaminophen [Percocet] 1 tab PO Q6H PRN #20 tab MDD 4 04/13/22 [Rx] Follow up and Referral Follow Up: 1 Week (Dr. Patel) 2 Weeks (Dr. Hogan) Discharge Disposition Discharge Disposition: good Discharge Condition: Good , walking to bathroom with a walker Discharge Plan Discharge Plan Hospital Course: 61 year old male who has had significant tobacco abuse history and significant vascular reconstruction. 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 He has bilateral iliac artery stents and right superficial femoral artery stent. Since this had a right transmetatarsal amputation which was planned and had been discharged home and was walking with a walker. He presented with gangrenous changes of the left 4th and 5th toes[address] CT angiogram showed complete total occlusion of the left superficial femoral artery. On table arteriography showed he had a completely occluded left iliac artery and completely occluded left superficial femoral artery. Because of the multiple stents in the iliac arteries he underwent retrograde approach from the left ankle by the posterior tibial artery and had atherectomy and drug coated balloon angioplasty of the iliac artery on the left as well as a superficial femoral artery on the left. Post-procedure he has done well the palpable pulse in the left groin and an excellent doppler signal in the anterior tibial artery on the left side. Yesterday he underwent transmetatarsal amputation of the left foot and is doing well, getting up and going to the bathroom with the aid of a walker and will be discharged today on his usual medications which will include Eliquis 5 mg po BID and aspirin 81 mg today. In addition to his other medications he will be on Clindamycin 150 mg po QID for one week and Percocet 5 mg tablets, one every six hours PRN pain , # 20. He will follow up with the Foot and Ankle service next week and I will see him in two weeks. I have strongly encouraged him not to smoke cigarettes . Patient Disposition: 01 HOME, SELF-CARE Condition: Stable Health Concerns: Post Hospitalization: new medications and changes needed to prevent readmission or further decline. Pt educated and given instructions on all concerns. Care Plan Goals: Problem: Infection Goal: Temperature within normal limits. Resolved infection. Instructions: Follow provided instructions. Follow up with primary physician as directed. Contact primary care physician or report to the closest Emergency Room if condition worsens. Plan of Treatment: Continue with present treatment and follow up plan. Pt is to keep follow up appointment as instructed and take medications as ordered. Prescription drug monitoring program results: PDMP reviewed and no concerns identified Prescriptions: New oxycodone-acetaminophen [Percocet] 5-325 mg tablet 1 tab PO Q6H MDD 4 PRNQty: 20 RF: 0 clindamycin HCl 150 mg capsule 150 mg PO QID Qty: 28 RF: 0 Continued Linzess 145 mcg Capsule 145 mcg PO QAM RF: 0 Eliquis 5 mg tablet 5 mg PO BID RF: 0 Follow ups/Referrals Follow ups/Referrals: TOMMY CORONEL [STAFF PHYSICIAN] - Geovanni Patel [CONSULTING PHYSICIAN] - 1 WEEK Vasquez Hogan [STAFF PHYSICIAN] - 1 WEEK Instructions Instructions: Fall Prevention in the Home, Adult, [id number], Living With an Amputation, Gangrene, Atherosclerosis, Toe Amputation, Care After, Steps to Quit Smoking, [id number], Atherectomy, Care After, Atherectomy, Hypertension, Adult, Gxyl-jw-Eope, Toe Amputation Stand Alone Forms: Precautions for [address] [facility], Patient Portal, Social Distancing Patient Education Addl Reference Links: Toe Amputation [email or web address]
== END 2022-04-13 13:28 | disposition home health service (06) | DRG 272 ==
LOC: MED/SURG 13:50 → ICU 04-11 14:43
PROVIDERS: ADMIT Surgery; ATTEND Surgery
DX: Z20.822 Contact with and (suspected) exposure to COVID-19; I70.262 Atherosclerosis of native arteries of extremities with gangrene, left leg; H91.3 Deaf nonspeaking, not elsewhere classified; I10 Essential (primary) hypertension; Z72.0 Tobacco use; R26.89 Other abnormalities of gait and mobility

== ENCOUNTER 2022-05-01 12:19 | Inpatient (IN) ==
[2022-05-01 14:22] VITALS: BMI 21.7
[2022-05-01 14:27] LABS: BASOPHILS # (AUTO) 0.1 X10^3/uL (0.0-0.1); BASOPHILS % (AUTO) 0.8 % (0.2-1.0); EOSINOPHILS # (AUTO) 0.1 x10^3/uL (0.0-0.2); EOSINOPHILS % (AUTO) 0.5 % (0.9-2.9); HEMATOCRIT 37.1 % (42.0-54.0); HEMOGLOBIN 12.4 g/dL (13.5-18.0); LYMPHOCYTES # (AUTO) 1.7 X10^3/uL (1.3-2.9); LYMPHOCYTES % (AUTO) 15.4 % (21.0-51.0); MEAN CORPUSCULAR HGB CONC 33.4 g/dL (33.0-35.0); MEAN PLATELET VOLUME 7.5 fL (7.4-11.0); MONOCYTES # (AUTO) 0.8 x10^3/uL (0.3-0.8); MONOCYTES % (AUTO) 7.6 % (0.0-13.0); NEUTROPHILS # (AUTO) 8.2 x10^3/uL (2.2-4.8); NEUTROPHILS % (AUTO) 75.7 % (42.0-75.0); RED BLOOD COUNT 4.41 X10^6/uL (4.7-6.0); RED CELL DISTRIBUTION WIDTH 14.6 % (11.6-16.5); WHITE BLOOD COUNT 10.8 X10^3/uL (3.6-10.0)
[2022-05-01 14:29] LABS: BLOOD UREA NITROGEN 4 mg/dL (7-18); CALCIUM 9.1 mg/dL (8.5-10.1); CARBON DIOXIDE 28.6 mmol/L (21-32); CHLORIDE 100 mmol/L (98-107); COR NA(FOR HYPERGLY) 136 mmol/L (136-145); CREATININE 0.64 mg/dL (0.70-1.30); SODIUM 135 mmol/L (136-145); eGFR NON BLACK RACES > 60 (>60)
[2022-05-01] MEDS: LR 1,000 ML IV 1,000 ML IV SCH (14:38)
[2022-05-01] MEDS: DILAUDID INJ IVP PRN ×2 (14:39→18:28)
--- NOTE | 2022-05-01 16:35 | CT ---
HISTORYischemic right legSTUDYCTA AORTA WITH EXCYTZYLWAFTIYKZ02/09/2022.TECHNIQUEMult iple axial images of the abdomen and pelvis were obtained from the mesenteric vasculature to the plantar surface of the feet both prior to and after the administration of IV contrast. 3D reconstructions were performed utilizing radial maximum intensity projection imaging. Dose reduction techniques including Automated Exposure Control (AEC) and adjustment of mA and kV were utilized.FINDINGSThe lung bases are clear without effusion. The heart size is normal. There is no vascular calcification in the coronary arteries. There is fatty infiltration of the liver. The gallbladder, pancreas, spleen, adrenal glands, and kidneys are normal. The stomach, small bowel are normal. There is diverticulosis in the sigmoid colon but no diverticulitis. The urinary bladder, prostate, and seminal vesicles are normal. There is no worrisome bone marrow lesion.Abdominal aorta: There is some heterogeneous plaque throughout the abdominal aorta more pronounced distally. There is a high-grade stenosis at the origin of the celiac trunk. There is plaque at the origin of the SMA but no significant flow limiting stenosis. There is plaque at the origins of the renal arteries. There is severe plaque at the origin of the VERN.Infrarenal abdominal aorta: There is an aorto bi-iliac stent graft and the stent is patent bilaterally.Common iliac arteries: The stent limbs are patent in the common iliac arteries.External iliac arteries: There is a high-grade stenosis in the right external iliac distal to the stent. There is fairly severe disease in the left common iliac distal to the stent.Internal iliac arteries: There is no flow in the left internal iliac artery. There is flow in the right internal iliac artery but there is a high-grade stenosis at the origin.Common femoral arteries: There is severe soft plaque or thrombus in the distal right external iliac artery and this continues into the common femoral artery. There is severe soft plaque in the left common femoral artery but this is significantly improved compared to the comparison study. There is blood flow into the deep and superficial femoral arteries.Superficial femoral arteries: There is complete occlusion of the right SFA at the origin. There is flow into the deep femoral system on the right side. There is a stent on the right side but the stent is occluded. There is irregular soft plaque in the SFA diffusely.Popliteal arteries: The left popliteal artery is patent. The right popliteal artery is occluded.Tibial vasculature: On the right side, there is some weak reconstitution of the peroneal artery. On the left side there is 3 vessel enhancement proximally. The posterior tibial artery vanishing is in the upper calf and there is 2 vessel runoff to the ankle.IMPRESSION1. 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 2. Complete occlusion of the right SFA and the stent and the right popliteal artery with weak reconstitution of the right peroneal artery. 4. Heavy plaque in the left common femoral and superficial femoral with occlusion of the posterior tibial artery in the proximal calf and 2 vessel runoff to the foot. 4. Fatty infiltration of the liver. 5. Diverticulosis coli.Electronically signed by: Rajendra Gallardo (May 01, 2022 16:33:08)
[2022-05-01] MEDS: COLACE CAP 100 MG PO SCH (20:37)
[2022-05-01] MEDS: LOPRESSOR TAB 25 MG PO SCH (20:37)
[2022-05-02] MEDS: DILAUDID INJ IVP PRN ×5 (00:17→20:15)
[2022-05-02] MEDS: LR 1,000 ML IV 1,000 ML IV SCH ×2 (03:24→20:14)
[2022-05-02 04:41] LABS: BASOPHILS # (AUTO) 0.1 X10^3/uL (0.0-0.1); BASOPHILS % (AUTO) 0.6 % (0.2-1.0); EOSINOPHILS # (AUTO) 0.2 x10^3/uL (0.0-0.2); EOSINOPHILS % (AUTO) 1.9 % (0.9-2.9); HEMATOCRIT 36.1 % (42.0-54.0); LYMPHOCYTES # (AUTO) 1.7 X10^3/uL (1.3-2.9); LYMPHOCYTES % (AUTO) 20.5 % (21.0-51.0); MEAN CORPUSCULAR HEMOGLOBIN 27.8 pg (27.0-34.0); MEAN CORPUSCULAR HGB CONC 33.1 g/dL (33.0-35.0); MEAN CORPUSCULAR VOLUME 83.9 fL (80.0-100.0); MEAN PLATELET VOLUME 7.3 fL (7.4-11.0); MONOCYTES # (AUTO) 0.7 x10^3/uL (0.3-0.8); MONOCYTES % (AUTO) 8.4 % (0.0-13.0); NEUTROPHILS # (AUTO) 5.8 x10^3/uL (2.2-4.8); NEUTROPHILS % (AUTO) 68.6 % (42.0-75.0); RED CELL DISTRIBUTION WIDTH 14.7 % (11.6-16.5); WHITE BLOOD COUNT 8.4 X10^3/uL (3.6-10.0)
[2022-05-02 04:51] LABS: BLOOD UREA NITROGEN 4 mg/dL (7-18); CALCIUM 9.2 mg/dL (8.5-10.1); CHLORIDE 101 mmol/L (98-107); COR NA(FOR HYPERGLY) 136 mmol/L (136-145); CREATININE 0.59 mg/dL (0.70-1.30); SODIUM 136 mmol/L (136-145); eGFR NON BLACK RACES > 60 (>60)
[2022-05-02] MEDS ORDERED: MARCAINE/EPINEPHRINE ONE (06:57)
[2022-05-02] MEDS ORDERED: HEPARIN SODIUM IN D5W 75,000 UNITS/1,500 ML BAG ONE (06:57)
[2022-05-02] MEDS ORDERED: NS 100 ML IV 100 ML ONE (07:29)
[2022-05-02] MEDS ORDERED: LR 1,000 ML IV 1,000 ML IV ONE (07:29)
[2022-05-02] MEDS ORDERED: ANCEF VIAL 1 GRAM ONE (07:29)
[2022-05-02] MEDS ORDERED: XYLOCAINE 2 % (PLAIN) ONE (07:47)
[2022-05-02] MEDS ORDERED: DIPRIVAN VIAL 20 ML ONE ×4 (07:47→10:32)
[2022-05-02] MEDS ORDERED: KETAMINE HCL ONE (07:48)
[2022-05-02] MEDS ORDERED: VERSED ONE (07:48)
[2022-05-02] MEDS ORDERED: FENTANYL VIAL INJ 100 mcg ONE ×2 (07:49→09:00)
[2022-05-02] MEDS ORDERED: ZOFRAN INJ 4 MG VIAL ONE (08:01)
[2022-05-02] MEDS ORDERED: PEPCID 20 MG VIAL ONE (08:01)
[2022-05-02] MEDS ORDERED: OFIRMEV IV 1000 MG VIAL 1,000 MG/100 ML VIAL IV ONE (08:02)
[2022-05-02] MEDS ORDERED: LACRI-LUBE S.O.P. ONE (08:02)
[2022-05-02] MEDS ORDERED: HEPARIN SODIUM INJ 5000 UNITS ONE ×2 (08:02→10:09)
[2022-05-02] MEDS ORDERED: EPHEDRINE SULFATE INJ ONE (08:21)
[2022-05-02] MEDS ORDERED: NS 1,000 ML IV 1,000 ML ONE (10:15)
[2022-05-02] MEDS ORDERED: TORADOL 30 MG VIAL ONE (10:34)
[2022-05-02] MEDS ORDERED: BENADRYL INJ 50 MG VIAL ONE (10:34)
[2022-05-02] MEDS ORDERED: PROTAMINE SULFATE 50 MG VIAL ONE (10:34)
[2022-05-02] MEDS ORDERED: DILAUDID INJ ONE ×2 (11:44→12:21)
--- NOTE | 2022-05-02 12:25 | OR.IMMED ---
IMMEDIATE POST-OP NOTE Immediate Post-Op Note Pre-Op Diagnosis: Critical limb ischemia right lower extremity Post-Op Diagnosis: same Procedure: aortogram, arteriogram right LE drug-coated balloon angioplasty and stent of the right external iliac artery ,atherectomy and drug-coated balloon angioplasty right superficial femoral and popliteal arteries, atherectomy an angioplasty of the right posterior tibial artery Description of Procedure: see operative note Surgeon/Backfiller: Edison Findings: stenosis distal end of right external iliac artery stent, complete total occlusion of the righ SFA, popliteal and posterior tibial arteries . Specimens Removed: plaque Estimated Blood Loss: 200 cc Drains: NONE Complications: none Discharge Progress Notes: return to the floor. Begin Diet. Start his home medications and add Plavix 75 mg daily and Xarelto 2. 5 mg BID. Probably discharged tomorrow Final Diagnosis: as above
[2022-05-02] MEDS: LOPRESSOR TAB 25 MG PO SCH ×2 (13:15→20:14)
[2022-05-02] MEDS: ASPIRIN EC 81 MG PO SCH (13:15)
[2022-05-02] MEDS: PROTONIX TAB 40 MG PO SCH (13:16)
[2022-05-02] MEDS: XARELTO PO SCH (20:14)
[2022-05-02] MEDS: COLACE CAP 100 MG PO SCH (20:14)
[2022-05-03] MEDS: DILAUDID INJ IVP PRN ×3 (01:49→10:08)
[2022-05-03 04:53] LABS: BASOPHILS % (AUTO) 0.4 % (0.2-1.0); EOSINOPHILS # (AUTO) 0.1 x10^3/uL (0.0-0.2); EOSINOPHILS % (AUTO) 0.7 % (0.9-2.9); HEMATOCRIT 32.5 % (42.0-54.0); HEMOGLOBIN 10.9 g/dL (13.5-18.0); LYMPHOCYTES % (AUTO) 9.9 % (21.0-51.0); MEAN CORPUSCULAR HEMOGLOBIN 27.9 pg (27.0-34.0); MEAN CORPUSCULAR HGB CONC 33.5 g/dL (33.0-35.0); MEAN CORPUSCULAR VOLUME 83.2 fL (80.0-100.0); MEAN PLATELET VOLUME 7.6 fL (7.4-11.0); MONOCYTES # (AUTO) 0.8 x10^3/uL (0.3-0.8); MONOCYTES % (AUTO) 7.7 % (0.0-13.0); NEUTROPHILS % (AUTO) 81.3 % (42.0-75.0); RED BLOOD COUNT 3.91 X10^6/uL (4.7-6.0); RED CELL DISTRIBUTION WIDTH 14.8 % (11.6-16.5); WHITE BLOOD COUNT 9.9 X10^3/uL (3.6-10.0)
[2022-05-03 05:05] LABS: ALANINE AMINOTRANSFERASE 16 Units/L (12-78); ALBUMIN 2.8 g/dL (3.4-5.0); ALKALINE PHOSPHATASE 80 Units/L (46-116); ASPARTATE AMINO TRANSFERASE 20 Units/L (15-37); BLOOD UREA NITROGEN 6 mg/dL (7-18); CALCIUM 8.6 mg/dL (8.5-10.1); CHLORIDE 100 mmol/L (98-107); COR CA(FOR HYPOALB) 9.6 mg/dL (8.5-10.1); COR NA(FOR HYPERGLY) 136 mmol/L (136-145); CREATININE 0.56 mg/dL (0.70-1.30); SODIUM 135 mmol/L (136-145); TOTAL PROTEIN 6.3 g/dL (6.4-8.2); eGFR NON BLACK RACES > 60 (>60)
[2022-05-03] MEDS: LR 1,000 ML IV 1,000 ML IV SCH (06:41)
[2022-05-03] MEDS: ASPIRIN EC 81 MG PO SCH (08:26)
[2022-05-03] MEDS: XARELTO PO SCH (08:26)
[2022-05-03] MEDS: PROTONIX TAB 40 MG PO SCH (08:26)
[2022-05-03] MEDS: LOPRESSOR TAB 25 MG PO SCH (08:27)
[2022-05-03 08:38] VITALS: BP 130/60
[2022-05-03] MEDS ORDERED: NICOTINE PATCH TD SCH (09:00)
[2022-05-03] MEDS ORDERED: PLAVIX PO SCH (09:00)
--- NOTE | 2022-05-03 10:22 | W.DIS.FURT ---
Summary of Discharge Discharge Summary of Date Date of Exam: 05/03/22 Admission Date Date of Admission: 05/01/22 Admission Diagnosis Hospital Course: 61 year old male, heavy smoker ,who presented almost 6 months ago with severe ischemia both extremities with occluded right femoral popliteal bypass graft and occluded femoral -femoral bypass graft for left iliac occlusion. He underwent revascularization of the [place] vessels of both sides using periphral techniques and subsequent had a right transmetatarsal amputation. Presented 4 weeks ago with an ischemic left foot and underwent atherectomy and drug-coated balloon angioplasty of the left superficial femoral artery complete total occlusion and intrastent thrombosis of the left iliac stent, as well as left transmetatarsal amputation . The left foot has healed nicely He continues to use tobacco products and now presents with ischemic changes of the right transmetatarsal amputation with rest pain. He was admitted and taken to the operating Suite the next day and underwent atherectomy and drug coated balloon angioplasty of the Superficial femoral artery complete total collusion with stenting of stenosis at the distal aspect of the right external iliac stent and angioplasty of the right posterior tibial artery . The right foot remains cool with eschar over the distal end of the right transmetatarsal amputation . He will be discharged today on his usual medications Plus nicotine patch, 21 mg daily, Percocet 5 mg tablets, one every six hours. Pain, # 30m , Plavix 75 mg daily. He will continue aspirin. He will follow up with me in one week.Will discontinue Eliquis and begin Xarelto 2. 5 mg PO BID . Follow up in one week with me. I am in still concerned he may require amputation of the right leg in the future. I have explained to him that his tobacco abuse is really negative in regards to his health and will lead to amputation of both legs if he does not stop. He will apply Santyl to the eschar of the right foot daily. Vital Signs: Vital Signs (72 hours) 05/01/22 13:30 05/01/22 14:39 05/01/22 15:09 Temperature 98.2 F Pulse Rate Pulse Rate [Left Radial] 83 Respiratory Rate 22 20 20 Blood Pressure Blood Pressure [Left Arm] Blood Pressure [Right Arm] 128/58 O2 Sat by Pulse Oximetry 05/01/22 16:00 05/01/22 18:28 05/01/22 18:58 Temperature 98.1 F Pulse Rate Pulse Rate [Left Radial] 78 Respiratory Rate 20 20 18 Blood Pressure Blood Pressure [Left Arm] Blood Pressure [Right Arm] 183/75 O2 Sat by Pulse Oximetry 99 05/01/22 20:00 05/01/22 23:48 05/02/22 00:17 Temperature 97.7 F 97.8 F Pulse Rate Pulse Rate [Left Radial] 70 74 Respiratory Rate 18 18 18 Blood Pressure Blood Pressure [Left Arm] 148/67 Blood Pressure [Right Arm] 122/59 O2 Sat by Pulse Oximetry 97 98 05/02/22 00:47 05/02/22 04:00 05/02/22 05:03 Temperature 97.7 F Pulse Rate Pulse Rate [Left Radial] 63 Respiratory Rate 18 21 Blood Pressure Blood Pressure [Left Arm] Blood Pressure [Right Arm] 122/67 O2 Sat by Pulse Oximetry 96 05/02/22 05:33 05/02/22 07:30 05/02/22 10:34 Temperature 97.3 F L Pulse Rate 64 Pulse Rate [Left Radial] Respiratory Rate 18 20 13 Blood Pressure 138/65 Blood Pressure [Left Arm] Blood Pressure [Right Arm] O2 Sat by Pulse Oximetry 98 05/02/22 11:44 05/02/22 12:08 05/02/22 12:13 Temperature 97.3 F L Pulse Rate 75 74 Pulse Rate [Left Radial] Respiratory Rate 15 16 16 Blood Pressure 117/56 122/58 Blood Pressure [Left Arm] Blood Pressure [Right Arm] O2 Sat by Pulse Oximetry 99 99 05/02/22 12:18 05/02/22 12:21 05/02/22 12:23 Temperature Pulse Rate 72 73 Pulse Rate [Left Radial] Respiratory Rate 16 16 16 Blood Pressure 118/58 116/57 Blood Pressure [Left Arm] Blood Pressure [Right Arm] O2 Sat by Pulse Oximetry 99 99 05/02/22 12:28 05/02/22 12:33 05/02/22 12:38 Temperature Pulse Rate 76 76 77 Pulse Rate [Left Radial] Respiratory Rate 18 18 18 Blood Pressure 113/56 105/54 109/55 Blood Pressure [Left Arm] Blood Pressure [Right Arm] O2 Sat by Pulse Oximetry 99 97 97 05/02/22 12:45 05/02/22 13:00 05/02/22 13:15 Temperature 98.2 F Pulse Rate Pulse Rate [Left Radial] 73 73 71 Respiratory Rate 20 18 20 Blood Pressure Blood Pressure [Left Arm] Blood Pressure [Right Arm] 107/54 108/51 106/53 O2 Sat by Pulse Oximetry 97 97 95 05/02/22 13:30 05/02/22 13:45 05/02/22 14:00 Temperature Pulse Rate Pulse Rate [Left Radial] 75 74 73 Respiratory Rate 17 18 18 Blood Pressure Blood Pressure [Left Arm] Blood Pressure [Right Arm] 111/53 114/54 105/55 O2 Sat by Pulse Oximetry 96 95 98 05/02/22 14:41 05/02/22 15:00 05/02/22 15:11 Temperature Pulse Rate Pulse Rate [Left Radial] 76 Respiratory Rate 18 19 19 Blood Pressure Blood Pressure [Left Arm] Blood Pressure [Right Arm] 117/58 O2 Sat by Pulse Oximetry 97 05/02/22 16:00 05/02/22 17:00 05/02/22 18:27 Temperature 98.2 F Pulse Rate Pulse Rate [Left Radial] 72 71 Respiratory Rate 18 18 20 Blood Pressure Blood Pressure [Left Arm] Blood Pressure [Right Arm] 124/59 112/52 O2 Sat by Pulse Oximetry 98 99 05/02/22 18:57 05/02/22 20:00 05/02/22 20:15 Temperature 98.2 F Pulse Rate Pulse Rate [Left Radial] 78 Respiratory Rate 19 18 20 Blood Pressure Blood Pressure [Left Arm] Blood Pressure [Right Arm] 130/58 O2 Sat by Pulse Oximetry 97 05/02/22 20:45 05/03/22 00:00 05/03/22 01:49 Temperature 98.4 F Pulse Rate Pulse Rate [Left Radial] 66 Respiratory Rate 19 18 20 Blood Pressure Blood Pressure [Left Arm] Blood Pressure [Right Arm] 132/64 O2 Sat by Pulse Oximetry 98 05/03/22 02:19 05/03/22 04:00 05/03/22 04:05 Temperature 98.7 F Pulse Rate Pulse Rate [Left Radial] 72 Respiratory Rate 19 18 20 Blood Pressure Blood Pressure [Left Arm] Blood Pressure [Right Arm] 130/59 O2 Sat by Pulse Oximetry 98 05/03/22 04:35 05/03/22 08:00 05/03/22 10:08 Temperature 98.1 F Pulse Rate Pulse Rate [Left Radial] 71 Respiratory Rate 19 18 20 Blood Pressure Blood Pressure [Left Arm] Blood Pressure [Right Arm] 130/60 O2 Sat by Pulse Oximetry 99 Labs: Laboratory Last Values WBC 9.9 X10^3/uL (3.6-10.0) 05/03/22 03:47 RBC 3.91 X10^6/uL (4.7-6.0) L 05/03/22 03:47 Hgb 10.9 g/dL (13.5-18.0) L 05/03/22 03:47 Hct 32.5 % (42.0-54.0) L 05/03/22 03:47 MCV 83.2 fL (80.0-100.0) 05/03/22 03:47 MCH 27.9 pg (27.0-34.0) 05/03/22 03:47 MCHC 33.5 g/dL (33.0-35.0) 05/03/22 03:47 RDW 14.8 % (11.6-16.5) 05/03/22 03:47 Plt Count 285 X10^3/uL (150.0-450.0) 05/03/22 03:47 MPV 7.6 fL (7.4-11.0) 05/03/22 03:47 Neut % (Auto) 81.3 % (42.0-75.0) H 05/03/22 03:47 Lymph % (Auto) 9.9 % (21.0-51.0) L 05/03/22 03:47 Ware % (Auto) 7.7 % (0.0-13.0) 05/03/22 03:47 Eos % (Auto) 0.7 % (0.9-2.9) L 05/03/22 03:47 Baso % (Auto) 0.4 % (0.2-1.0) 05/03/22 03:47 Neut # (Auto) 8.0 x10^3/uL (2.2-4.8) H 05/03/22 03:47 Lymph # (Auto) 1.0 X10^3/uL (1.3-2.9) L 05/03/22 03:47 Ware # (Auto) 0.8 x10^3/uL (0.3-0.8) 05/03/22 03:47 Eos # (Auto) 0.1 x10^3/uL (0.0-0.2) 05/03/22 03:47 Baso # (Auto) 0.0 X10^3/uL (0.0-0.1) 05/03/22 03:47 Absolute Nucleated RBC 0.0 /100WBC 05/03/22 03:47 Sodium 135 mmol/L (136-145) L 05/03/22 03:47 Corrected Sodium 136 mmol/L (136-145) 05/03/22 03:47 Potassium 4.2 mmol/L (3.5-5.1) 05/03/22 03:47 Chloride 100 mmol/L (98-107) 05/03/22 03:47 Carbon Dioxide 33.0 mmol/L (21-32) H 05/03/22 03:47 BUN 6 mg/dL (7-18) L 05/03/22 03:47 Creatinine 0.56 mg/dL (0.70-1.30) L 05/03/22 03:47 Est GFR (MDRD) Af Amer > 60 (>60) 05/03/22 03:47 Est GFR (MDRD) Non-Af > 60 (>60) 05/03/22 03:47 Glucose 121 mg/dL (65-99) H 05/03/22 03:47 POC Glucose (mg/dL) 136 mg/dL (65-99) H 05/02/22 09:49 Calcium 8.6 mg/dL (8.5-10.1) 05/03/22 03:47 Corrected Calcium 9.6 mg/dL (8.5-10.1) 05/03/22 03:47 Total Bilirubin 0.50 mg/dL (0.2-1.0) 05/03/22 03:47 AST 20 Units/L (15-37) 05/03/22 03:47 ALT 16 Units/L (12-78) 05/03/22 03:47 Alkaline Phosphatase 80 Units/L (46-116) 05/03/22 03:47 Total Protein 6.3 g/dL (6.4-8.2) L 05/03/22 03:47 Albumin 2.8 g/dL (3.4-5.0) L 05/03/22 03:47 Globulin 3.5 g/dL (2.5-4.5) 05/03/22 03:47 Albumin/Globulin Ratio 0.8 Ratio (1.1-2.1) L 05/03/22 03:47 SARS-CoV-2 (PCR) Negative (NEGATIVE) 05/01/22 15:49 Reason For Visit: RIGHT ISCHEMIC LEG Discharge Date Discharge Date: 05/03/22 Discharge Diagnosis All Active Problems (Updated 04/08/22 @ 23:00 by Vasquez Hogan) Critical limb ischemia of left lower extremity with gangrene (Acute) Hypertension (Acute) Tobacco abuse disorder (Acute) Constipation (Acute) Critical limb ischemia of left lower extremity (Acute) Critical limb ischemia of right lower extremity with gangrene (Acute) Ischemic pain of right foot (Acute) Plan of Treatment: Continue with present treatment and follow up plan. Pt is to keep follow up appointment as instructed and take medications as ordered. Discharge Medications Discharge Medications: No Known Drug Allergies Allergy (Verified 11/05/21 15:45) CONTINUE taking the following medications Linzess 145 mcg PO DAILY 05/01/22 [History] oxycodone-acetaminophen 1 tab PO PRN PRN 05/01/22 [History] pantoprazole 40 mg PO DAILY 05/01/22 [History] New Prescriptions aspirin 81 mg PO DAILY #100 tab 05/03/22 [Rx] clopidogrel 75 mg PO DAILY #90 tab 05/03/22 [Rx] docusate sodium 200 mg PO HS #30 cap 05/03/22 [Rx] metoprolol tartrate 25 mg PO BID #120 tab 05/03/22 [Rx] nicotine [Nicoderm CQ] 1 patch TD DAILY #30 ea 05/03/22 [Rx] pantoprazole 40 mg PO DAILY #30 tab 05/03/22 [Rx] rivaroxaban [Xarelto] 2.5 mg PO BID #180 tab 05/03/22 [Rx] Follow up and Referral Follow Up: 1 Week (Dr Hogan) Discharge Disposition Assessment: See hospital course as above Discharge Disposition: Stable Discharge Condition: right leg may require amputation ion the future Discharge Plan Discharge Plan Hospital Course: 61 year old male, heavy smoker ,who presented almost 6 months ago with severe ischemia both extremities with occluded right femoral popliteal bypass graft and occluded femoral -femoral bypass graft for left iliac occlusion. He underwent revascularization of the [place] vessels of both sides using periphral techniques and subsequent had a right transmetatarsal amputation. Presented 4 weeks ago with an ischemic left foot and underwent atherectomy and drug-coated balloon angioplasty of the left superficial femoral artery complete total occlusion and intrastent thrombosis of the left iliac stent, as well as left transmetatarsal amputation . The left foot has healed nicely He continues to use tobacco products and now presents with ischemic changes of the right transmetatarsal amputation with rest pain. He was admitted and taken to the operating Suite the next day and underwent atherectomy and drug coated balloon angioplasty of the Superficial femoral artery complete total collusion with stenting of stenosis at the distal aspect of the right external iliac stent and angioplasty of the right posterior tibial artery . The right foot remains cool with eschar over the distal end of the right transmetatarsal amputation . He will be discharged today on his usual medications Plus nicotine patch, 21 mg daily, Percocet 5 mg tablets, one every six hours. Pain, # 30m , Plavix 75 mg daily. He will continue aspirin. He will follow up with me in one week.Will discontinue Eliquis and begin Xarelto 2. 5 mg PO BID . Follow up in one week with me. I am in still concerned he may require amputation of the right leg in the future. I have explained to him that his tobacco abuse is really negative in regards to his health and will lead to amputation of both legs if he does not stop. He will apply Santyl to the eschar of the right foot daily. Patient Disposition: 01 HOME, SELF-CARE Condition: Stable Health Concerns: Post Hospitalization: new medications and changes needed to prevent readmission or further decline. Pt educated and given instructions on all concerns. Care Plan Goals: To try and keep both legs from amputation Plan of Treatment: Continue with present treatment and follow up plan. Pt is to keep follow up appointment as instructed and take medications as ordered. Assessment: See hospital course as above Prescriptions: New clopidogrel 75 mg Tablet 75 mg PO DAILY Qty: 90 RF: 0 aspirin 81 mg Tablet,Delayed Release (Dr/Ec) 81 mg PO DAILY Qty: 100 RF: 0 pantoprazole 40 mg Tablet,Delayed Release (Dr/Ec) 40 mg PO DAILY Qty: 30 RF: 6 nicotine [Nicoderm CQ] 21 mg/24 hr Patch 24 Hour 1 patch TD DAILY Qty: 30 RF: 0 docusate sodium 100 mg Capsule 200 mg PO HS Qty: 30 RF: 0 metoprolol tartrate 25 mg Tablet 25 mg PO BID Qty: 120 RF: 0 Xarelto 2.5 mg Tablet 2.5 mg PO BID Qty: 180 RF: 0 Continued oxycodone-acetaminophen 5-325 mg tablet 1 tab PO PRN PRNRF: 0 pantoprazole 40 mg tablet,delayed release (DR/EC) 40 mg PO DAILY RF: 0 Linzess 145 mcg capsule 145 mcg PO DAILY RF: 0 Discontinued clindamycin HCl 150 mg capsule 150 mg PO QID Qty: 28 RF: 0 Eliquis 5 mg tablet 5 mg PO DAILY RF: 0 Follow ups/Referrals Follow ups/Referrals: Desiree BROWN [Primary Care Provider] - 1 WEEK Vasquez Hogan [STAFF PHYSICIAN] - 05/08/22 1:30 pm Instructions Instructions: How to Use an Incentive Spirometer, Atherosclerosis, Peripheral Vascular Disease, [id number], Steps to Quit Smoking, [id number], How to Change Your Wound Dressing, Bleeding Precautions When on Anticoagulant Therapy, Adult, Coronary Angioplasty, Managing Your Hypertension, How to Prevent Constipation After Surgery Stand Alone Forms: Excuse From Work or School, Precautions for COVID19, [facility], Patient Portal, Social Distancing Patient Education Addl Reference Links: [facility] [email or web address]&[email or web address]=Male&[email or web address].v=[email or web address].u=a&performer=[email or web address] [email or web address] guageCode.c=en&[email or web address].dn=[email or web address]&[id number]
--- NOTE | 2022-05-06 12:06 | DR.OPNOTE ---
OP NOTE Pre-Op Diagnosis: Critical limb ischemia right foot Post-Op Diagnosis: same Procedure Date Date Of Procedure: 05/02/22 Procedure: PROCEDURE : Diagnostic aortogram , diagnostic arteriogram right lower extremity, atherectomy and stenting right external iliac artery ,atherectomy and drug-coated balloon angioplasty right superficial femoral artery and popliteal artery, atherectomy and drug- coated balloon angioplasty of the right posterior tibial artery. Operative exposure of right posterior tibial artery. NARRTIVE: Patient taken to the OR and placed in the supine position and given IV sedation which was supervised by myself. The entire right leg and the left groin were prepped and draped in sterile fashion. Time out for the procedure obtained . Ultrasound used to identify the posterior tibial artery at the medial ankle and the posterior tibial artery appeared to be thrombosed. The skin overlying the posterior tibial artery was infiltrated with 0.5 % Marcaine . I was able to obtain blood return and place a 0.012 inch guide wire and a microsheath but IV contrast confirmed that this was venous each time. Therefore ultrasound used to identify the left femoral artery and the skin overlying it infiltrated with 0.5 % Marcaine. Ultrasound used to guide puncture of the left femoral artery and 0.012 inch guide wire placed . Incision made over the skin at the skin edge and microsheath placed. Small wire exchange d for 0.035 inch Advantage glidewire and the microsheath exchanged for a 5 Fr vascular sheath. Patient given 5000 units of IV heparin. Omni catheter placed over the 0.035 inch wire and diagnostic aortogram carried out showing patent aorta and stents in both proximal iliac arteries with acute angle that I did not think could be traversed safely over the top from left to right. Arteriogram did show severe stenosis of right external iliac artery distal to the current stent in place with complete total occlusion of the right superficial femoral artery at it's takeoff with occlusion of right popliteal artery and right side trifurcation vessels. On withdrawing the sheaths in veins of the right ankle but part of the sheath sheared off. A cutdown of the right medial ankle used to find this sheath and it was removed. The right posterior tibial artery identified and it appeared to be thrombosed. Vessels loops placed around the posterior tibial artery proximally and distally and the posterior tibial artery punctured with a 20 gauge needle and 0.018 inch wire placed and taken without difficulty all the way to the right iliac artery and this position confirmed with IV contrast. [place] 0.035 inch catheter placed over the 0.018 inch wire and this wire exchanged for a 0.014 inch wire. Jet stream atherectomy device placed over the wire and atherectomy carried out from the posterior tibial artery thought the popliteal artery , superficial femoral artery all the way through the severe stenosis at the distal end of the present right external iliac stent. This was repeated .Superficial femoral artery and popliteal arteries ballooned opened 3 minutes each with two 6 mm x 200 mm [place] [employer] Radiant drug coated balloons. The right posterior tibial artery ballooned open with a 4 mm x 200 mm Radiant drug coated balloon. Then the right external iliac artery stenosis had a 7mm x 80 mm Paula drug coated stent , then dilated it with a 7mm x 150 mm balloon . Patient had been given additional 3000 units of heparin at one hour. Post procedure arteriogram showed patent arteries from the right iliac artery all the way through the right posterior tibial artery. Incision in right medial ankle closed with 2 layers of running 3-0 Vicryl and the skin closed with skin adin . Sheath discontinued left groin and pressure held for 10 minutes and then dressing applied. Patietn taken to PACU, Type of Anesthesia: Local (0.5% Marcaine ) Anesthesia Comment: plus MAC Findings: Patient has had multiple vascular reconstructions after failed right femoral popliteal bypass and failed femoral femoral bypass for ischemic lower extremities in October of 2021. He had reestablishment of arterial Flow by the [place] vessels and subsequent right transmetatarsal amputation. He continues to smoke cigarettes. One month ago he had atherectomy and drug coatedballoon angioplasty of the left superficial femoral artery and left transmetatarsal amputation healed. Presents now with ischemic changes with cyanosis and eschar of the non healing right past trans-metatarsal amputation. CT angiogram shows stenosis of the external iliac artery on the right side distal to previous play stents as well as complete total occlusion of the right superficial femoral artery, right popliteal artery and the runoff vessels. Specimen/Pathology: none Type of Fluids Used:: Lactated Ringers Total Amount of Fluid Infused:: 800 cc Urine output: 275 cc EBL: 200 cc Drains/Tubes Placed: None Hardware: stent placed right distal right external iliac artety Complications:: none Needle/Sponge Count:: correct Disposition/Condition: Pt. tolerated procedure without difficulty. Extubated in the OR and taken to PACU in stable condition.
[2022-05-06] MEDS ORDERED: DILAUDID INJ IVP PRN (17:16)
[2022-05-06] MEDS ORDERED: LR 1,000 ML IV 1,000 ML IV SCH (18:00)
== END 2022-05-03 12:10 | disposition home health service (06) | DRG 272 ==
LOC: MED/SURG 12:20
PROVIDERS: ADMIT Surgery; ATTEND Surgery
DX: Z79.01 Long term (current) use of anticoagulants; I70.261 Atherosclerosis of native arteries of extremities with gangrene, right leg; I10 Essential (primary) hypertension; Z72.0 Tobacco use

== ENCOUNTER 2022-05-06 14:24 | Inpatient (IN) ==
[2022-05-06 16:13] VITALS: BMI 21.7
[2022-05-06 18:43] LABS: BASOPHILS # (AUTO) 0.1 X10^3/uL (0.0-0.1); BASOPHILS % (AUTO) 0.5 % (0.2-1.0); EOSINOPHILS % (AUTO) 0.1 % (0.9-2.9); HEMATOCRIT 30.8 % (42.0-54.0); HEMOGLOBIN 10.3 g/dL (13.5-18.0); LYMPHOCYTES # (AUTO) 1.1 X10^3/uL (1.3-2.9); LYMPHOCYTES % (AUTO) 6.4 % (21.0-51.0); MEAN CORPUSCULAR HEMOGLOBIN 27.8 pg (27.0-34.0); MEAN CORPUSCULAR HGB CONC 33.5 g/dL (33.0-35.0); MEAN CORPUSCULAR VOLUME 82.9 fL (80.0-100.0); MEAN PLATELET VOLUME 8.1 fL (7.4-11.0); MONOCYTES # (AUTO) 1.4 x10^3/uL (0.3-0.8); MONOCYTES % (AUTO) 8.4 % (0.0-13.0); NEUTROPHILS # (AUTO) 14.3 x10^3/uL (2.2-4.8); NEUTROPHILS % (AUTO) 84.6 % (42.0-75.0); RED BLOOD COUNT 3.71 X10^6/uL (4.7-6.0); RED CELL DISTRIBUTION WIDTH 15.1 % (11.6-16.5); WHITE BLOOD COUNT 16.9 X10^3/uL (3.6-10.0)
[2022-05-06 18:47] LABS: BLOOD UREA NITROGEN 14 mg/dL (7-18); CALCIUM 8.9 mg/dL (8.5-10.1); CARBON DIOXIDE 28.5 mmol/L (21-32); CHLORIDE 98 mmol/L (98-107); COR NA(FOR HYPERGLY) 136 mmol/L (136-145); CREATININE 0.66 mg/dL (0.70-1.30); SODIUM 134 mmol/L (136-145); eGFR NON BLACK RACES > 60 (>60)
[2022-05-06] MEDS: LR 1,000 ML IV 1,000 ML IV SCH (18:51)
[2022-05-06] MEDS: DILAUDID INJ IVP PRN ×2 (18:52→22:45)
[2022-05-07] MEDS: DILAUDID INJ IVP PRN ×5 (03:04→22:47)
[2022-05-07 05:02] LABS: BASOPHILS % (AUTO) 0.3 % (0.2-1.0); EOSINOPHILS % (AUTO) 0.1 % (0.9-2.9); HEMATOCRIT 28.2 % (42.0-54.0); HEMOGLOBIN 9.4 g/dL (13.5-18.0); LYMPHOCYTES # (AUTO) 0.7 X10^3/uL (1.3-2.9); LYMPHOCYTES % (AUTO) 5.4 % (21.0-51.0); MEAN CORPUSCULAR HEMOGLOBIN 27.3 pg (27.0-34.0); MEAN CORPUSCULAR HGB CONC 33.3 g/dL (33.0-35.0); MEAN CORPUSCULAR VOLUME 82.2 fL (80.0-100.0); MONOCYTES # (AUTO) 1.4 x10^3/uL (0.3-0.8); MONOCYTES % (AUTO) 10.5 % (0.0-13.0); NEUTROPHILS % (AUTO) 83.7 % (42.0-75.0); RED BLOOD COUNT 3.43 X10^6/uL (4.7-6.0); RED CELL DISTRIBUTION WIDTH 14.9 % (11.6-16.5); WHITE BLOOD COUNT 13.1 X10^3/uL (3.6-10.0)
[2022-05-07 05:09] LABS: ALANINE AMINOTRANSFERASE 17 Units/L (12-78); ALBUMIN 2.5 g/dL (3.4-5.0); ALKALINE PHOSPHATASE 75 Units/L (46-116); ASPARTATE AMINO TRANSFERASE 24 Units/L (15-37); BLOOD UREA NITROGEN 10 mg/dL (7-18); CALCIUM 8.4 mg/dL (8.5-10.1); CARBON DIOXIDE 29.5 mmol/L (21-32); CHLORIDE 97 mmol/L (98-107); COR CA(FOR HYPOALB) 9.6 mg/dL (8.5-10.1); COR NA(FOR HYPERGLY) 133 mmol/L (136-145); CREATININE 0.48 mg/dL (0.70-1.30); SODIUM 132 mmol/L (136-145); TOTAL PROTEIN 6.5 g/dL (6.4-8.2); eGFR NON BLACK RACES > 60 (>60)
[2022-05-07] MEDS ORDERED: POTASSIUM CHL 40 MEQ/NS 0.45% 500 ML IV PRN (05:32)
[2022-05-07] MEDS ORDERED: POTASSIUM CHLORIDE LIQ 20 MEQ UDC PO PRN (05:32)
[2022-05-07] MEDS ORDERED: K-RIDER 10 MEQ/NS 100 ML 10 MEQ/100 ML BAG IV PRN (05:32)
[2022-05-07] MEDS ORDERED: POTASSIUM CHL 60 MEQ/NS 0.45% 500 ML IV PRN (05:32)
[2022-05-07] MEDS ORDERED: MICRO K EXTEN CAP 10 MEQ PO PRN (05:32)
[2022-05-07] MEDS ORDERED: KLOR-CON PO PRN (05:32)
[2022-05-07] MEDS: K-DUR TAB 20 MEQ PO PRN (06:21)
[2022-05-07] MEDS: MAGNESIUM SULFATE 1 GRAM/100 mL PREMIX 1 G/100 ML BAG IV PRN ×2 (06:21→07:36)
[2022-05-07] MEDS ORDERED: COLACE CAP 100 MG PO ONE (07:15)
[2022-05-07] MEDS ORDERED: PROTONIX TAB 40 MG PO ONE (07:15)
[2022-05-07] MEDS ORDERED: NICOTINE PATCH TD ONE (07:16)
[2022-05-07] MEDS ORDERED: LINZESS PO ONE (07:16)
[2022-05-07] MEDS ORDERED: LOPRESSOR TAB 25 MG ONE (07:16)
[2022-05-07] MEDS: NICOTINE PATCH TD SCH (08:14)
[2022-05-07] MEDS: LOPRESSOR TAB 25 MG PO SCH ×2 (08:14→20:02)
[2022-05-07] MEDS: PROTONIX TAB 40 MG PO SCH (08:14)
[2022-05-07] MEDS: LINZESS PO SCH (08:14)
[2022-05-07] MEDS: ZOSYN VIAL 3.375 GRAMS 3.375 G in NS 100 ML IV 100 ML IV SCH ×3 (09:21→21:04)
[2022-05-07] MEDS: ZOFRAN INJ 4 MG VIAL IVP PRN ×2 (09:22→19:54)
[2022-05-07] MEDS: LR 1,000 ML IV 1,000 ML IV SCH ×2 (10:25→21:04)
[2022-05-07] MEDS ORDERED: TYLENOL 325 MG TAB PO PRN (19:36)
[2022-05-07] MEDS: COLACE CAP 100 MG PO SCH (20:02)
--- NOTE | 2022-05-07 21:12 | NOTE.SOAP ---
Soap Note Note for Day of Date of Exam: 05/07/22 Subjective Data Subjective Data: Patient with severe ischemia of both LE who has had multiple revascularizations but has continued to smoke heavily and now has gangrenous right foot and calf. No arterial flow in the right popliteal artery and distally. Objective Data Temperature: 99.6 F Pulse Rate: 82 Respiratory Rate: 18 Blood Pressure: 110/51 O2 Sat by Pulse Oximetry: 97 Objective Data: gangrenous right foot and calf Assessment Assessment: Gangrenous right foot and calf Plan Plan: Right above knee amputation
[2022-05-08] MEDS: DILAUDID INJ IVP PRN ×10 (01:50→21:03)
[2022-05-08 04:21] LABS: BASOPHILS % (AUTO) 0.3 % (0.2-1.0); EOSINOPHILS % (AUTO) 0.1 % (0.9-2.9); HEMATOCRIT 28.3 % (42.0-54.0); HEMOGLOBIN 9.4 g/dL (13.5-18.0); LYMPHOCYTES % (AUTO) 6.5 % (21.0-51.0); MEAN CORPUSCULAR HEMOGLOBIN 27.2 pg (27.0-34.0); MEAN CORPUSCULAR HGB CONC 33.2 g/dL (33.0-35.0); MEAN CORPUSCULAR VOLUME 82.1 fL (80.0-100.0); MEAN PLATELET VOLUME 8.2 fL (7.4-11.0); MONOCYTES # (AUTO) 1.6 x10^3/uL (0.3-0.8); MONOCYTES % (AUTO) 10.2 % (0.0-13.0); NEUTROPHILS # (AUTO) 12.9 x10^3/uL (2.2-4.8); NEUTROPHILS % (AUTO) 82.9 % (42.0-75.0); RED BLOOD COUNT 3.44 X10^6/uL (4.7-6.0); RED CELL DISTRIBUTION WIDTH 14.5 % (11.6-16.5); WHITE BLOOD COUNT 15.6 X10^3/uL (3.6-10.0)
[2022-05-08 04:52] LABS: ALANINE AMINOTRANSFERASE 15 Units/L (12-78); ALBUMIN 2.2 g/dL (3.4-5.0); ALKALINE PHOSPHATASE 74 Units/L (46-116); ASPARTATE AMINO TRANSFERASE 21 Units/L (15-37); BLOOD UREA NITROGEN 10 mg/dL (7-18); CALCIUM 8.4 mg/dL (8.5-10.1); CARBON DIOXIDE 32.6 mmol/L (21-32); CHLORIDE 97 mmol/L (98-107); COR CA(FOR HYPOALB) 9.8 mg/dL (8.5-10.1); COR NA(FOR HYPERGLY) 134 mmol/L (136-145); CREATININE 0.58 mg/dL (0.70-1.30); SODIUM 133 mmol/L (136-145); TOTAL PROTEIN 6.3 g/dL (6.4-8.2); eGFR NON BLACK RACES > 60 (>60)
[2022-05-08] MEDS: ZOSYN VIAL 3.375 GRAMS 3.375 G in NS 100 ML IV 100 ML IV SCH ×3 (05:23→21:02)
[2022-05-08] MEDS: ZOFRAN INJ 4 MG VIAL IVP PRN (06:27)
[2022-05-08] MEDS ORDERED: BETADINE SOLN ONE (06:53)
[2022-05-08] MEDS ORDERED: FENTANYL VIAL INJ 250 mcg ONE (07:28)
[2022-05-08] MEDS ORDERED: VERSED ONE (07:28)
[2022-05-08] MEDS ORDERED: LR 1,000 ML IV 1,000 ML IV ONE (07:35)
[2022-05-08] MEDS ORDERED: ANCEF VIAL 1 GRAM ONE (07:35)
[2022-05-08] MEDS ORDERED: NS 100 ML IV 100 ML ONE (07:35)
[2022-05-08] MEDS ORDERED: SUPRANE ONE (07:40)
[2022-05-08] MEDS ORDERED: DIPRIVAN VIAL 20 ML ONE (08:41)
--- NOTE | 2022-05-08 08:41 | OR.IMMED ---
IMMEDIATE POST-OP NOTE Immediate Post-Op Note Pre-Op Diagnosis: gangrene right foot and calf Post-Op Diagnosis: same Procedure: right above knee amputation Description of Procedure: see operative summary Surgeon/Slab Tripper: Edison Findings: as above Specimens Removed: right leg above knee Estimated Blood Loss: < 50 cc Drains: NONE Complications: none Discharge Progress Notes: To floor , pain control, diet Final Diagnosis: as above
[2022-05-08] MEDS ORDERED: BARHEMSYS INJ IVP PRN (08:50)
[2022-05-08] MEDS ORDERED: BENADRYL INJ 50 MG VIAL IVP PRN (08:50)
[2022-05-08] MEDS ORDERED: REGLAN INJ 10 MG VIAL IVP PRN (08:50)
[2022-05-08] MEDS ORDERED: PHENERGAN INJ 25 MG IM PRN (08:50)
[2022-05-08] MEDS ORDERED: ZOFRAN INJ 4 MG VIAL IVP PRN (08:50)
[2022-05-08] MEDS ORDERED: DILAUDID INJ ONE (09:05)
[2022-05-08] MEDS: NICOTINE PATCH TD SCH (10:18)
[2022-05-08] MEDS: PROTONIX TAB 40 MG PO SCH (10:18)
[2022-05-08] MEDS: LOPRESSOR TAB 25 MG PO SCH ×2 (10:19→21:03)
[2022-05-08] MEDS: LINZESS PO SCH (10:44)
[2022-05-08] MEDS: LR 1,000 ML IV 1,000 ML IV SCH (10:45)
[2022-05-08] MEDS: COLACE CAP 100 MG PO SCH (21:02)
[2022-05-08] MEDS: K-DUR TAB 20 MEQ PO PRN (21:03)
--- NOTE | 2022-05-08 23:24 | NOTE.SOAP ---
Soap Note Note for Day of Date of Exam: 05/08/22 Subjective Data Subjective Data: S/p right above knee amputation this AM. Patietn is much more comfortable after removing that painful ischemic leg. Objective Data Temperature: 99.4 F Pulse Rate: 74 Respiratory Rate: 26 Blood Pressure: 134/63 O2 Sat by Pulse Oximetry: 97 Objective Data: Dressing intact right AKA with no drainage. Assessment Assessment: S/P right AKA Plan Plan: Patient has been accepted at SNF . If we can get his pain under control with PO pain medications will hopefully discharge on Friday05/10/2022
[2022-05-08] MEDS: PERCOCET TAB 5/325 MG PO PRN (23:36)
[2022-05-09 05:26] LABS: BASOPHILS % (AUTO) 0.3 % (0.2-1.0); EOSINOPHILS % (AUTO) 0.1 % (0.9-2.9); HEMATOCRIT 27.8 % (42.0-54.0); HEMOGLOBIN 9.3 g/dL (13.5-18.0); LYMPHOCYTES % (AUTO) 7.4 % (21.0-51.0); MEAN CORPUSCULAR HEMOGLOBIN 27.4 pg (27.0-34.0); MEAN CORPUSCULAR HGB CONC 33.4 g/dL (33.0-35.0); MEAN PLATELET VOLUME 8.3 fL (7.4-11.0); MONOCYTES # (AUTO) 1.5 x10^3/uL (0.3-0.8); MONOCYTES % (AUTO) 11.2 % (0.0-13.0); RED BLOOD COUNT 3.39 X10^6/uL (4.7-6.0); RED CELL DISTRIBUTION WIDTH 14.6 % (11.6-16.5); WHITE BLOOD COUNT 13.6 X10^3/uL (3.6-10.0)
[2022-05-09 05:42] LABS: ALANINE AMINOTRANSFERASE 19 Units/L (12-78); ALBUMIN 2.1 g/dL (3.4-5.0); ALKALINE PHOSPHATASE 86 Units/L (46-116); ASPARTATE AMINO TRANSFERASE 30 Units/L (15-37); BLOOD UREA NITROGEN 9 mg/dL (7-18); CALCIUM 8.2 mg/dL (8.5-10.1); CARBON DIOXIDE 30.4 mmol/L (21-32); CHLORIDE 99 mmol/L (98-107); COR CA(FOR HYPOALB) 9.7 mg/dL (8.5-10.1); COR NA(FOR HYPERGLY) 136 mmol/L (136-145); CREATININE 0.55 mg/dL (0.70-1.30); SODIUM 135 mmol/L (136-145); eGFR NON BLACK RACES > 60 (>60)
[2022-05-09] MEDS: PERCOCET TAB 5/325 MG PO PRN ×3 (05:45→22:20)
[2022-05-09] MEDS: ZOSYN VIAL 3.375 GRAMS 3.375 G in NS 100 ML IV 100 ML IV SCH ×3 (06:05→21:17)
[2022-05-09] MEDS: K-DUR TAB 20 MEQ PO PRN ×2 (06:13→21:17)
[2022-05-09] MEDS: ZOFRAN INJ 4 MG VIAL IVP PRN (07:51)
[2022-05-09] MEDS: NICOTINE PATCH TD SCH (08:52)
[2022-05-09] MEDS: PROTONIX TAB 40 MG PO SCH (08:52)
[2022-05-09] MEDS: LOPRESSOR TAB 25 MG PO SCH ×2 (08:52→21:17)
[2022-05-09] MEDS: DILAUDID INJ IVP PRN ×3 (08:53→19:16)
[2022-05-09] MEDS: LINZESS PO SCH (09:49)
[2022-05-09] MEDS: LR 1,000 ML IV 1,000 ML IV SCH ×3 (09:50→18:40)
[2022-05-09] MEDS: COLACE CAP 100 MG PO SCH (21:17)
--- NOTE | 2022-05-09 21:42 | NOTE.SOAP ---
Soap Note Note for Day of Date of Exam: 05/09/22 Subjective Data Subjective Data: POD # 1 after right above knee amputation. Pain under control with po pain medications . Taking diet Objective Data Temperature: 99.3 F Pulse Rate: 74 Respiratory Rate: 18 Blood Pressure: 139/65 O2 Sat by Pulse Oximetry: 95 Objective Data: A& oriented x 3 . right leg stump without drainage . comfortable, Assessment Assessment: pod # 1 after right AKA Plan Plan: Discharge to SNF tomorrow.
--- NOTE | 2022-05-09 22:23 | DR.OPNOTE ---
OP NOTE Pre-Op Diagnosis: Right foot rest pain and gangrene Post-Op Diagnosis: same Procedure Date Date Of Procedure: 05/08/22 Procedure: PROCEDURE : RIGHT ABOVE KNEE AMPUTATION NARRATIVE : The patient was taken to the operative suite, placed in supine position and general endotracheal anesthesia induced. The entire right leg was prepped and draped in sterile fashion. Time out for the procedure obtained . A fish mouth incision was made transversely one hand's breadth above the patella . Vastas muscles of the thigh divided with electrocautery down to the femur and the periosteum elevated with a elizabeth-ostial elevator. Femur divided with a Gigli saw. Amputation knife used to complete the posterior incision and the leg removed. All bleeding vessels clamped and tied with silk ties or cauterized with electrocautery . The sciatic nerve was shortened and tied with a 2-0 Vicryl suture ligature . Both flaps irrigated and hemostasis obtained with electrocautery . The fascia of the two flaps closed with interrupted 2-0 Vicryl sutures and the skin closed with skin adin. Dressing applied . Patient tolerated this well , extubated and taken to recovery room in good condition. Type of Anesthesia: General Anesthetic w/ETT Findings: as above Specimen/Pathology: right leg abovr knee amputation Type of Fluids Used:: Lactated Ringers EBL: < 50 cc Complications:: none Needle/Sponge Count:: correct Disposition/Condition: Pt. tolerated procedure without difficulty. Extubated in the OR and taken to PACU in stable condition.
[2022-05-10] MEDS: DILAUDID INJ IVP PRN ×3 (00:23→13:45)
[2022-05-10 04:59] LABS: BASOPHILS # (AUTO) 0.1 X10^3/uL (0.0-0.1); BASOPHILS % (AUTO) 0.4 % (0.2-1.0); EOSINOPHILS % (AUTO) 0.3 % (0.9-2.9); HEMATOCRIT 30.4 % (42.0-54.0); LYMPHOCYTES # (AUTO) 1.2 X10^3/uL (1.3-2.9); LYMPHOCYTES % (AUTO) 8.6 % (21.0-51.0); MEAN CORPUSCULAR HEMOGLOBIN 27.4 pg (27.0-34.0); MEAN CORPUSCULAR VOLUME 82.9 fL (80.0-100.0); MEAN PLATELET VOLUME 8.6 fL (7.4-11.0); MONOCYTES # (AUTO) 1.2 x10^3/uL (0.3-0.8); MONOCYTES % (AUTO) 8.6 % (0.0-13.0); NEUTROPHILS # (AUTO) 11.4 x10^3/uL (2.2-4.8); NEUTROPHILS % (AUTO) 82.1 % (42.0-75.0); RED BLOOD COUNT 3.67 X10^6/uL (4.7-6.0); RED CELL DISTRIBUTION WIDTH 14.6 % (11.6-16.5); WHITE BLOOD COUNT 13.8 X10^3/uL (3.6-10.0)
[2022-05-10 05:00] LABS: ALANINE AMINOTRANSFERASE 19 Units/L (12-78); ALKALINE PHOSPHATASE 91 Units/L (46-116); ASPARTATE AMINO TRANSFERASE 28 Units/L (15-37); BLOOD UREA NITROGEN 8 mg/dL (7-18); CALCIUM 8.4 mg/dL (8.5-10.1); CARBON DIOXIDE 31.6 mmol/L (21-32); CHLORIDE 101 mmol/L (98-107); COR NA(FOR HYPERGLY) 137 mmol/L (136-145); CREATININE 0.51 mg/dL (0.70-1.30); SODIUM 136 mmol/L (136-145); TOTAL PROTEIN 6.1 g/dL (6.4-8.2); eGFR NON BLACK RACES > 60 (>60)
[2022-05-10] MEDS: PERCOCET TAB 5/325 MG PO PRN (05:22)
[2022-05-10] MEDS: K-DUR TAB 20 MEQ PO PRN (05:23)
[2022-05-10] MEDS: ZOSYN VIAL 3.375 GRAMS 3.375 G in NS 100 ML IV 100 ML IV SCH (05:23)
[2022-05-10] MEDS: LR 1,000 ML IV 1,000 ML IV SCH (05:24)
[2022-05-10] MEDS: PROTONIX TAB 40 MG PO SCH (09:37)
[2022-05-10] MEDS: LOPRESSOR TAB 25 MG PO SCH (09:38)
[2022-05-10] MEDS: LINZESS PO SCH (09:38)
[2022-05-10] MEDS: NICOTINE PATCH TD SCH (09:43)
--- NOTE | 2022-05-10 10:08 | W.DIS.FURT ---
Summary of Discharge Discharge Summary of Date Date of Exam: 05/10/22 Admission Date Date of Admission: 05/06/22 Admission Diagnosis Hospital Course: 61 year old male with significant history of peripheral vascular disease who has had multiple revascularization procedures . The left side has worked well as he has had atherectomy and stenting of his [place] left iliac artery which had complete total occlusion and a failed femoral - femoral bypass. He also had atherectomy and drug-coated balloon angioplasty of the left superficial femoral artery and subsequent left transmetatarsal amputation which is healed. Previously he had atherectomy and drug coated balloon angioplasty of the right supereficial femoral artery and stenting of the right iliac artery with failed right femoral popliteal bypass and right transmetatarsal amputation. He has continued to smoke heavily and presented with severe gangrene of the right foot. He was admitted on 06 of May. I held his the Xarelto he was taken to the operating Suite on May 08 where he underwent an uncomplicated right above knee amputation. His pain is much better and he is now comfortable. Dressing is intact. Hemoglobin is stable at 10 grams . He will be discharged today to a Group Home Facility. He will continue his usual home medications including an aspirin and either Xarelto or Eliquis depending on the cost. He will follow up with me in one week. He will also be prescribed Percocet, 5 mg, i po q 6 hr PRN pain. Vital Signs: Vital Signs (72 hours) 05/07/22 12:01 05/07/22 15:19 05/07/22 15:49 Temperature 99.5 F Pulse Rate 69 Respiratory Rate 20 20 Blood Pressure 150/64 O2 Sat by Pulse Oximetry 99 05/07/22 16:00 05/07/22 17:00 05/07/22 18:00 Temperature 100.9 F H Pulse Rate 75 78 80 Respiratory Rate Blood Pressure 120/57 O2 Sat by Pulse Oximetry 96 98 99 05/07/22 19:00 05/07/22 19:50 05/07/22 19:55 Temperature 99.0 F Pulse Rate 77 81 Respiratory Rate 18 Blood Pressure 123/56 O2 Sat by Pulse Oximetry 98 98 05/07/22 20:00 05/07/22 20:01 05/07/22 20:03 Temperature Pulse Rate 84 82 Respiratory Rate 18 Blood Pressure 110/51 O2 Sat by Pulse Oximetry 97 97 05/07/22 20:25 05/07/22 21:00 05/07/22 21:03 Temperature Pulse Rate 65 Respiratory Rate 18 18 Blood Pressure O2 Sat by Pulse Oximetry 97 05/07/22 21:12 05/07/22 22:00 05/07/22 22:47 Temperature 99.6 F Pulse Rate 82 61 Respiratory Rate 18 18 Blood Pressure 110/51 109/55 O2 Sat by Pulse Oximetry 97 98 05/07/22 23:00 05/07/22 23:17 05/08/22 00:00 Temperature 98.5 F Pulse Rate 64 64 Respiratory Rate 18 Blood Pressure 115/54 O2 Sat by Pulse Oximetry 97 96 05/08/22 01:00 05/08/22 01:47 05/08/22 01:50 Temperature Pulse Rate 65 Respiratory Rate 18 Blood Pressure 124/59 O2 Sat by Pulse Oximetry 97 05/08/22 02:00 05/08/22 02:20 05/08/22 03:00 Temperature Pulse Rate 67 70 Respiratory Rate 18 Blood Pressure 111/54 O2 Sat by Pulse Oximetry 96 96 05/08/22 04:00 05/08/22 05:00 05/08/22 05:19 Temperature 98.7 F Pulse Rate 72 78 Respiratory Rate 18 Blood Pressure 131/58 O2 Sat by Pulse Oximetry 97 99 05/08/22 05:49 05/08/22 06:00 05/08/22 07:00 Temperature Pulse Rate 79 83 Respiratory Rate 18 Blood Pressure 144/62 O2 Sat by Pulse Oximetry 97 98 05/08/22 08:46 05/08/22 08:51 05/08/22 08:56 Temperature 98.3 F Pulse Rate 77 75 80 Respiratory Rate 16 16 16 Blood Pressure 159/68 148/65 161/70 O2 Sat by Pulse Oximetry 99 99 100 05/08/22 09:01 05/08/22 09:06 05/08/22 09:11 Temperature Pulse Rate 76 76 74 Respiratory Rate 16 18 18 Blood Pressure 160/69 147/67 148/59 O2 Sat by Pulse Oximetry 100 99 97 05/08/22 09:12 05/08/22 09:16 05/08/22 09:25 Temperature Pulse Rate 78 75 Respiratory Rate 18 20 Blood Pressure 146/65 O2 Sat by Pulse Oximetry 96 95 05/08/22 09:26 05/08/22 09:36 05/08/22 09:42 Temperature Pulse Rate 74 Respiratory Rate 18 18 Blood Pressure 153/68 O2 Sat by Pulse Oximetry 95 05/08/22 10:00 05/08/22 10:20 05/08/22 10:50 Temperature Pulse Rate 75 Respiratory Rate 18 18 Blood Pressure O2 Sat by Pulse Oximetry 95 05/08/22 11:00 05/08/22 12:00 05/08/22 12:07 Temperature 98.9 F Pulse Rate 73 61 Respiratory Rate 20 22 18 Blood Pressure O2 Sat by Pulse Oximetry 96 96 05/08/22 12:37 05/08/22 13:00 05/08/22 13:46 Temperature Pulse Rate 62 Respiratory Rate 18 13 18 Blood Pressure O2 Sat by Pulse Oximetry 96 05/08/22 14:00 05/08/22 14:02 05/08/22 14:16 Temperature Pulse Rate 68 68 Respiratory Rate 15 13 18 Blood Pressure 148/65 O2 Sat by Pulse Oximetry 95 97 05/08/22 15:00 05/08/22 16:00 05/08/22 16:35 Temperature 100.3 F H Pulse Rate 68 74 Respiratory Rate 19 13 18 Blood Pressure 142/63 O2 Sat by Pulse Oximetry 96 97 05/08/22 17:00 05/08/22 17:05 05/08/22 18:00 Temperature Pulse Rate 71 73 Respiratory Rate 31 H 18 18 Blood Pressure 122/57 O2 Sat by Pulse Oximetry 94 L 96 05/08/22 18:18 05/08/22 18:48 05/08/22 19:00 Temperature Pulse Rate 72 Respiratory Rate 18 18 29 H Blood Pressure O2 Sat by Pulse Oximetry 94 L 05/08/22 20:00 05/08/22 21:00 05/08/22 21:03 Temperature 99.4 F Pulse Rate 78 80 Respiratory Rate 22 31 H 20 Blood Pressure 136/64 O2 Sat by Pulse Oximetry 97 95 05/08/22 21:33 05/08/22 22:00 05/08/22 23:00 Temperature Pulse Rate 74 69 Respiratory Rate 20 33 H 30 H Blood Pressure 134/63 O2 Sat by Pulse Oximetry 93 L 94 L 05/08/22 23:23 05/08/22 23:36 05/09/22 00:00 Temperature 99.4 F 99.5 F Pulse Rate 74 67 Respiratory Rate 26 H 20 22 Blood Pressure 134/63 134/60 O2 Sat by Pulse Oximetry 97 96 05/09/22 00:01 05/09/22 00:36 05/09/22 01:00 Temperature Pulse Rate 65 61 Respiratory Rate 18 20 31 H Blood Pressure 134/60 O2 Sat by Pulse Oximetry 96 94 L 05/09/22 02:00 05/09/22 03:00 05/09/22 04:00 Temperature 99.4 F Pulse Rate 61 61 65 Respiratory Rate 19 21 24 Blood Pressure 127/67 123/55 O2 Sat by Pulse Oximetry 96 96 94 L 05/09/22 05:00 05/09/22 05:45 05/09/22 06:00 Temperature Pulse Rate 66 68 Respiratory Rate 24 20 20 Blood Pressure 135/63 O2 Sat by Pulse Oximetry 95 96 05/09/22 06:45 05/09/22 07:00 05/09/22 08:00 Temperature 98.9 F Pulse Rate 66 69 Respiratory Rate 18 25 H 25 H Blood Pressure 152/67 O2 Sat by Pulse Oximetry 96 96 05/09/22 08:53 05/09/22 09:00 05/09/22 09:23 Temperature Pulse Rate 70 Respiratory Rate 20 23 19 Blood Pressure O2 Sat by Pulse Oximetry 96 05/09/22 10:00 05/09/22 11:00 05/09/22 12:00 Temperature 99 F Pulse Rate 64 64 62 Respiratory Rate 21 17 25 H Blood Pressure 137/90 132/60 O2 Sat by Pulse Oximetry 96 97 95 05/09/22 13:00 05/09/22 14:00 05/09/22 14:45 Temperature Pulse Rate 64 63 Respiratory Rate 30 H 38 H 20 Blood Pressure 128/59 O2 Sat by Pulse Oximetry 95 95 05/09/22 15:00 05/09/22 15:15 05/09/22 16:00 Temperature 99.3 F Pulse Rate 72 74 Respiratory Rate 25 H 19 18 Blood Pressure 139/65 O2 Sat by Pulse Oximetry 96 95 05/09/22 16:46 05/09/22 17:46 05/09/22 19:16 Temperature Pulse Rate Respiratory Rate 20 19 20 Blood Pressure O2 Sat by Pulse Oximetry 05/09/22 19:46 05/09/22 20:00 05/09/22 21:41 Temperature 98.3 F 99.3 F Pulse Rate 66 74 Respiratory Rate 20 18 18 Blood Pressure 132/58 139/65 O2 Sat by Pulse Oximetry 97 95 05/09/22 22:20 05/09/22 23:20 05/10/22 00:00 Temperature 98.4 F Pulse Rate 66 Respiratory Rate 19 20 24 Blood Pressure 147/60 O2 Sat by Pulse Oximetry 96 05/10/22 00:23 05/10/22 00:53 05/10/22 04:00 Temperature 98.3 F Pulse Rate 64 Respiratory Rate 20 20 18 Blood Pressure 131/62 O2 Sat by Pulse Oximetry 97 05/10/22 05:22 05/10/22 06:00 05/10/22 06:22 Temperature Pulse Rate 63 Respiratory Rate 20 23 20 Blood Pressure 154/69 O2 Sat by Pulse Oximetry 94 L 05/10/22 09:38 Temperature Pulse Rate Respiratory Rate 20 Blood Pressure O2 Sat by Pulse Oximetry Labs: Laboratory Last Values WBC 13.8 X10^3/uL (3.6-10.0) H 05/10/22 03:40 RBC 3.67 X10^6/uL (4.7-6.0) L 05/10/22 03:40 Hgb 10.0 g/dL (13.5-18.0) L 05/10/22 03:40 Hct 30.4 % (42.0-54.0) L 05/10/22 03:40 MCV 82.9 fL (80.0-100.0) 05/10/22 03:40 MCH 27.4 pg (27.0-34.0) 05/10/22 03:40 MCHC 33.0 g/dL (33.0-35.0) 05/10/22 03:40 RDW 14.6 % (11.6-16.5) 05/10/22 03:40 Plt Count 277 X10^3/uL (150.0-450.0) 05/10/22 03:40 MPV 8.6 fL (7.4-11.0) 05/10/22 03:40 Neut % (Auto) 82.1 % (42.0-75.0) H 05/10/22 03:40 Lymph % (Auto) 8.6 % (21.0-51.0) L 05/10/22 03:40 [place] % (Auto) 8.6 % (0.0-13.0) 05/10/22 03:40 Eos % (Auto) 0.3 % (0.9-2.9) L 05/10/22 03:40 Baso % (Auto) 0.4 % (0.2-1.0) 05/10/22 03:40 Neut # (Auto) 11.4 x10^3/uL (2.2-4.8) H 05/10/22 03:40 Lymph # (Auto) 1.2 X10^3/uL (1.3-2.9) L 05/10/22 03:40 [place] # (Auto) 1.2 x10^3/uL (0.3-0.8) H 05/10/22 03:40 Eos # (Auto) 0.0 x10^3/uL (0.0-0.2) 05/10/22 03:40 Baso # (Auto) 0.1 X10^3/uL (0.0-0.1) 05/10/22 03:40 Absolute Nucleated RBC 0.0 /100WBC 05/10/22 03:40 Sodium 136 mmol/L (136-145) 05/10/22 03:40 Corrected Sodium 137 mmol/L (136-145) 05/10/22 03:40 Potassium 3.8 mmol/L (3.5-5.1) 05/10/22 03:40 Chloride 101 mmol/L (98-107) 05/10/22 03:40 Carbon Dioxide 31.6 mmol/L (21-32) 05/10/22 03:40 BUN 8 mg/dL (7-18) 05/10/22 03:40 Creatinine 0.51 mg/dL (0.70-1.30) L 05/10/22 03:40 Est GFR (MDRD) Af Amer > 60 (>60) 05/10/22 03:40 Est GFR (MDRD) Non-Af > 60 (>60) 05/10/22 03:40 Glucose 128 mg/dL (65-99) H 05/10/22 03:40 Calcium 8.4 mg/dL (8.5-10.1) L 05/10/22 03:40 Corrected Calcium 10.0 mg/dL (8.5-10.1) 05/10/22 03:40 Magnesium 2.0 mg/dL (1.7-2.9) 05/08/22 03:40 Total Bilirubin 0.30 mg/dL (0.2-1.0) 05/10/22 03:40 AST 28 Units/L (15-37) 05/10/22 03:40 ALT 19 Units/L (12-78) 05/10/22 03:40 Alkaline Phosphatase 91 Units/L (46-116) 05/10/22 03:40 Total Protein 6.1 g/dL (6.4-8.2) L 05/10/22 03:40 Albumin 2.0 g/dL (3.4-5.0) L 05/10/22 03:40 Globulin 4.1 g/dL (2.5-4.5) 05/10/22 03:40 Albumin/Globulin Ratio 0.5 Ratio (1.1-2.1) L 05/10/22 03:40 SARS-CoV-2 (PCR) Negative (NEGATIVE) 05/06/22 16:45 Tissue Pathology To follow 05/08/22 08:15 Reason For Visit: ISCHEMIC RIGHT LEG Discharge Date Discharge Date: 05/10/22 Discharge Diagnosis All Active Problems (Updated 05/06/22 @ 17:15 by Vasquez Hogan) 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 Pt is to keep follow up appointment as instructed and take medications as ordered. Discharge Medications Discharge Medications: No Known Drug Allergies Allergy (Verified 11/05/21 15:45) CONTINUE taking the following medications aspirin 81 mg PO daily Xarelto 2. 5 mg BID linzess 145 micrograms daily Protonix 40 mg daily nicotine patch 21 mg daily Colace 100 mg p o BID Metoprolol 25 mg po BID New Prescriptions Follow up and Referral Follow Up: 1 Week () Discharge Disposition Assessment: To SNF. F/U with Dr. Hogan 1 week. Discharge Disposition: stable Discharge Condition: stable Discharge Plan Discharge Plan Hospital Course: 61 year old male with significant history of peripheral vascular disease who has had multiple revascularization procedures . The left side has worked well as he has had atherectomy and stenting of his [place] left iliac artery which had complete total occlusion and a failed femoral - femoral bypass. He also had atherectomy and drug-coated balloon angioplasty of the left superficial femoral artery and subsequent left transmetatarsal amputation which is healed. Previously he had atherectomy and drug coated balloon angioplasty of the right supereficial femoral artery and stenting of the right iliac artery with failed right femoral popliteal bypass and right transmetatarsal amputation. He has continued to smoke heavily and presented with severe gangrene of the right foot. He was admitted on 06 of May. I held his the Xarelto he was taken to the operating Suite on May 08 where he underwent an uncomplicated right above knee amputation. His pain is much better and he is now comfortable. Dressing is intact. Hemoglobin is stable at 10 grams . He will be discharged today to a Group Home Facility. He will continue his usual home medications including an aspirin and either Xarelto or Eliquis depending on the cost. He will follow up with me in one week. He will also be prescribed Percocet, 5 mg, i po q 6 hr PRN pain. Patient Disposition: HOME HEALTH SERVICE Condition: Stable Health Concerns: Post Hospitalization: new medications and changes needed to prevent readmission or further decline. Pt educated and given instructions on all concerns. Care Plan Goals: Problem: Pain/Alteration in Comfort Goal: Improve/ Resolve Pain; Achieve Pain Tolerance Instructions: Take pain medications as prescribed. Contact your primary care provider if your pain is unrelieved or worsens. Follow up with primary care provider as directed. Plan of Treatment: Continue with present treatment and follow up plan. Pt is to keep follow up appointment as instructed and take medications as ordered. Assessment: To SNF. F/U with Dr. Hogan 1 week. Prescription drug monitoring program results: PDMP reviewed with concerns identified Prescriptions: New Xarelto 2.5 mg tablet 2.5 mg PO BID Qty: 90 RF: 6 aspirin 81 mg capsule 81 mg PO ONCE Qty: 90 RF: 0 Continued Linzess 145 mcg capsule 145 mcg PO DAILY RF: 0 pantoprazole 40 mg Tablet,Delayed Release (Dr/Ec) 40 mg PO DAILY Qty: 30 RF: 6 docusate sodium 100 mg Capsule 200 mg PO HS Qty: 30 RF: 0 metoprolol tartrate 25 mg Tablet 25 mg PO BID Qty: 120 RF: 0 oxycodone-acetaminophen 5-325 mg tablet 1 tab PO PRN MDD 4 PRN (Reason: Pain) Qty: 40 RF: 0 nicotine [Nicoderm CQ] 21 mg/24 hr Patch 24 Hour 1 patch TD DAILY Qty: 30 RF: 0 Discontinued clopidogrel 75 mg Tablet 75 mg PO DAILY Qty: 90 RF: 0 Xarelto 2.5 mg tablet 5 mg PO BID RF: 0 Follow ups/Referrals Follow ups/Referrals: HOMER,TOMMY TALBERT [STAFF PHYSICIAN] - Vasquez Hogan [STAFF PHYSICIAN] - 1 WEEK Instructions Instructions: Living With an Amputation, Gangrene, Steps to Quit Smoking, [id number], Phantom Limb Pain, Stump and Prosthesis Care, Hypertension, Adult, [id number] Stand Alone Forms: Precautions for [facility], [facility], Patient Portal, Social Distancing Patient Education Addl Reference Links: Leg Amputation, Care After [email or web address] [email or web address] [email or web address]=[email or web address] &[email or web address].[id number]
[2022-05-10 10:29] VITALS: BP 124/59
== END 2022-05-10 14:01 | DRG 241 ==
LOC: ICU 15:32
PROVIDERS: ADMIT Surgery; ATTEND Surgery
DX: R26.89 Other abnormalities of gait and mobility; Z72.0 Tobacco use; I70.261 Atherosclerosis of native arteries of extremities with gangrene, right leg; Z20.822 Contact with and (suspected) exposure to COVID-19

== ENCOUNTER 2022-07-01 06:09 | Inpatient (IN) ==
[2022-07-01] MEDS ORDERED: LR 1,000 ML IV 1,000 ML IV ONE (07:12)
[2022-07-01] MEDS ORDERED: ANCEF VIAL 1 GRAM ONE (07:12)
[2022-07-01] MEDS ORDERED: NS 100 ML IV 100 ML ONE (07:12)
--- NOTE | 2022-07-01 08:11 | RAD ---
HISTORYPreop lower extremity amputationSTUDYChest AP [id number]/16/2022FINDINGSPati ent is rotated slightly to the left peer heart size is normal. Juliana are normal. Lungs are mildly hyperinflated but free of acute alveolar infiltrates. Mild interstitial lung changes are present. No pleural effusion is identified. Bony thorax is unremarkable.IMPRESSIONLungs mildly hyperinflated but free of acute alveolar infiltratesMild chronic appearing interstitial lung changesElectronically signed by: CHARU GAMBOA (Jul 01, 2022 08:09:52)
[2022-07-01 08:22] VITALS: BMI 27.6
[2022-07-01 08:28] LABS: BASOPHILS # (AUTO) 0.1 X10^3/uL (0.0-0.1); BASOPHILS % (AUTO) 0.8 % (0.2-1.0); EOSINOPHILS % (AUTO) 0.3 % (0.9-2.9); HEMATOCRIT 33.1 % (42.0-54.0); HEMOGLOBIN 10.9 g/dL (13.5-18.0); LYMPHOCYTES # (AUTO) 1.3 X10^3/uL (1.3-2.9); LYMPHOCYTES % (AUTO) 11.3 % (21.0-51.0); MEAN CORPUSCULAR HEMOGLOBIN 26.8 pg (27.0-34.0); MEAN PLATELET VOLUME 7.8 fL (7.4-11.0); MONOCYTES # (AUTO) 0.9 x10^3/uL (0.3-0.8); NEUTROPHILS # (AUTO) 9.2 x10^3/uL (2.2-4.8); NEUTROPHILS % (AUTO) 79.6 % (42.0-75.0); RED BLOOD COUNT 4.08 X10^6/uL (4.7-6.0); RED CELL DISTRIBUTION WIDTH 16.5 % (11.6-16.5); WHITE BLOOD COUNT 11.5 X10^3/uL (3.6-10.0)
[2022-07-01 08:42] LABS: ALANINE AMINOTRANSFERASE 10 Units/L (12-78); ALBUMIN 2.6 g/dL (3.4-5.0); ALKALINE PHOSPHATASE 88 Units/L (46-116); ASPARTATE AMINO TRANSFERASE 10 Units/L (15-37); BLOOD UREA NITROGEN 7 mg/dL (7-18); CALCIUM 9.2 mg/dL (8.5-10.1); CHLORIDE 99 mmol/L (98-107); COR CA(FOR HYPOALB) 10.3 mg/dL (8.5-10.1); COR NA(FOR HYPERGLY) 136 mmol/L (136-145); CREATININE 0.38 mg/dL (0.70-1.30); SODIUM 135 mmol/L (136-145); TOTAL PROTEIN 7.3 g/dL (6.4-8.2); eGFR NON BLACK RACES > 60 (>60)
[2022-07-01] MEDS ORDERED: DIPRIVAN VIAL 20 ML ONE (08:48)
[2022-07-01] MEDS ORDERED: FENTANYL VIAL INJ 100 mcg ONE (08:48)
[2022-07-01] MEDS ORDERED: VERSED ONE (08:48)
[2022-07-01] MEDS ORDERED: OFIRMEV IV 1000 MG VIAL 1,000 MG/100 ML VIAL IV ONE (08:48)
[2022-07-01] MEDS ORDERED: BRIDION ONE (08:48)
[2022-07-01] MEDS ORDERED: TORADOL 30 MG VIAL ONE (08:49)
[2022-07-01] MEDS ORDERED: PEPCID 20 MG VIAL ONE (08:49)
[2022-07-01] MEDS ORDERED: ZOFRAN INJ 4 MG VIAL ONE (08:49)
[2022-07-01] MEDS ORDERED: ZEMURON 100 MG VIAL ONE (08:49)
[2022-07-01] MEDS ORDERED: XYLOCAINE 2 % (PLAIN) ONE (09:09)
[2022-07-01] MEDS ORDERED: BETADINE SOLN ONE (09:11)
[2022-07-01] MEDS ORDERED: SUPRANE ONE (09:40)
[2022-07-01] MEDS ORDERED: XYLOCAINE JELLY TOP ONE (09:40)
[2022-07-01] MEDS ORDERED: EPHEDRINE SULFATE INJ ONE (09:47)
[2022-07-01] MEDS ORDERED: DILAUDID INJ ONE (10:07)
--- NOTE | 2022-07-01 10:32 | OR.IMMED ---
IMMEDIATE POST-OP NOTE Immediate Post-Op Note Pre-Op Diagnosis: Ischemic left leg , failed intervention due to continued smoki ng Post-Op Diagnosis: same Procedure: left above knee amputation Description of Procedure: see operative summary Surgeon/Senior Mobile Solutions Architect: Edison Specimens Removed: left leg above knee Estimated Blood Loss: < 50 cc Complications: none Progress Notes: admit to floor Final Diagnosis: as above
[2022-07-01] MEDS ORDERED: REGLAN INJ 10 MG VIAL IVP PRN (10:37)
[2022-07-01] MEDS ORDERED: ZOFRAN INJ 4 MG VIAL IVP PRN (10:37)
[2022-07-01] MEDS ORDERED: BENADRYL INJ 50 MG VIAL IVP PRN (10:37)
[2022-07-01] MEDS ORDERED: BARHEMSYS INJ IVP PRN (10:37)
[2022-07-01] MEDS ORDERED: PHENERGAN INJ 25 MG IM PRN (10:37)
[2022-07-01] MEDS: DILAUDID INJ IVP PRN ×4 (10:54→19:13)
[2022-07-01] MEDS: PERCOCET TAB 5/325 MG PO PRN (12:42)
[2022-07-01] MEDS: COLACE CAP 100 MG PO SCH (20:24)
[2022-07-01] MEDS: LOPRESSOR TAB 25 MG PO SCH (20:24)
--- NOTE | 2022-07-01 22:02 | DR.OPNOTE ---
OP NOTE Pre-Op Diagnosis: Ischemic left tleg with gangrenous changes Post-Op Diagnosis: same Procedure Date Date Of Procedure: 07/01/22 Procedure: PROCEDURE: LEFT ABOVE KNEE AMPUTATION NARRATIVE : Patient was taken to the operative suite and placed in the supine position. General endotracheal anesthesia was induced. Entire left leg was prepped and draped in sterile fashion. Time out for the procedure obtained . Fish mouth incision was made one hands breath above the patella tendon with a #10 knife . Subcutaneous tissue and muscle divided with electrocautery down to the femur elevating the periosteum with a periosteal elevator. In the medial compartment the femoral artery and vein were clamped between clamps , divided and tied with a 0 Vicryl suture ligature The femur was divided with the Gigli saw and the amputation completed with the amputation knife creating the posterior flap . All bleeding vessels clamp and tied with 3-0 silk suture ligatures. The sciatic nerve was shortened and tied with a 2-0 silk suture ligature . Area was irrigated with saline. Hemostasis obtained with electrocautery. The flaps closed by approximating the fascia with interrupted 0 Vicryl interrupted sutures . Skin closed with skin Shock. The femur had been smoothed with a rasp. Dressing with Kerlix and Milo Wrap applied. The patient was extubated and taken to the recovery room in good condition. Type of Anesthesia: General Anesthetic w/ETT Findings: as above Specimen/Pathology: left leg above knee Type of Fluids Used:: Lactated Ringers Total Amount of Fluid Infused:: 500 cc EBL: < 50 cc Complications:: none Needle/Sponge Count:: correct Disposition/Condition: Pt. tolerated procedure without difficulty. Extubated in the OR and taken to PACU in stable condition.
[2022-07-02] MEDS: DILAUDID INJ IVP PRN ×4 (01:02→19:04)
[2022-07-02 06:18] LABS: BASOPHILS # (AUTO) 0.1 X10^3/uL (0.0-0.1); BASOPHILS % (AUTO) 0.7 % (0.2-1.0); EOSINOPHILS # (AUTO) 0.1 x10^3/uL (0.0-0.2); EOSINOPHILS % (AUTO) 0.9 % (0.9-2.9); HEMATOCRIT 30.6 % (42.0-54.0); HEMOGLOBIN 10.2 g/dL (13.5-18.0); LYMPHOCYTES # (AUTO) 1.1 X10^3/uL (1.3-2.9); LYMPHOCYTES % (AUTO) 11.5 % (21.0-51.0); MEAN CORPUSCULAR HEMOGLOBIN 26.8 pg (27.0-34.0); MEAN CORPUSCULAR HGB CONC 33.3 g/dL (33.0-35.0); MEAN CORPUSCULAR VOLUME 80.7 fL (80.0-100.0); MEAN PLATELET VOLUME 7.8 fL (7.4-11.0); MONOCYTES # (AUTO) 0.9 x10^3/uL (0.3-0.8); NEUTROPHILS # (AUTO) 7.7 x10^3/uL (2.2-4.8); NEUTROPHILS % (AUTO) 77.9 % (42.0-75.0); RED BLOOD COUNT 3.79 X10^6/uL (4.7-6.0); RED CELL DISTRIBUTION WIDTH 16.7 % (11.6-16.5); WHITE BLOOD COUNT 9.9 X10^3/uL (3.6-10.0)
[2022-07-02 06:21] LABS: ALANINE AMINOTRANSFERASE 11 Units/L (12-78); ALBUMIN 2.4 g/dL (3.4-5.0); ALKALINE PHOSPHATASE 78 Units/L (46-116); ASPARTATE AMINO TRANSFERASE 19 Units/L (15-37); BLOOD UREA NITROGEN 9 mg/dL (7-18); CALCIUM 9.3 mg/dL (8.5-10.1); CARBON DIOXIDE 32.3 mmol/L (21-32); CHLORIDE 102 mmol/L (98-107); COR CA(FOR HYPOALB) 10.6 mg/dL (8.5-10.1); COR NA(FOR HYPERGLY) 139 mmol/L (136-145); CREATININE 0.41 mg/dL (0.70-1.30); SODIUM 139 mmol/L (136-145); TOTAL PROTEIN 6.9 g/dL (6.4-8.2); eGFR NON BLACK RACES > 60 (>60)
[2022-07-02] MEDS: PROTONIX TAB 40 MG PO SCH (10:04)
[2022-07-02] MEDS: LOPRESSOR TAB 25 MG PO SCH ×2 (10:04→21:02)
[2022-07-02] MEDS: NICOTINE PATCH TD SCH (10:04)
[2022-07-02] MEDS: PERCOCET TAB 5/325 MG PO PRN ×2 (10:05→17:22)
[2022-07-02] MEDS: LINZESS PO SCH (10:05)
--- NOTE | 2022-07-02 20:40 | NOTE.SOAP ---
Soap Note Note for Day of Date of Exam: 07/02/22 Subjective Data Subjective Data: POD # 1 s/p left above knee amputation. C/O pain but is in no distress and the nurses think his pain has been well tolerated Objective Data Temperature: 98.6 F Pulse Rate: 65 Respiratory Rate: 18 Blood Pressure: 129/60 O2 Sat by Pulse Oximetry: 97 Objective Data: A&O x 3 , dressing intact left leg stump. No drainage Assessment Assessment: S/P left AKA doing well. Plan Plan: Plan discharge tomorrow to SNF.
[2022-07-02] MEDS: COLACE CAP 100 MG PO SCH (21:02)
[2022-07-03] MEDS: PERCOCET TAB 5/325 MG PO PRN (00:36)
[2022-07-03] MEDS: DILAUDID INJ IVP PRN ×2 (04:44→12:29)
[2022-07-03] MEDS: LINZESS PO SCH (09:35)
[2022-07-03] MEDS: PROTONIX TAB 40 MG PO SCH (09:35)
[2022-07-03] MEDS: LOPRESSOR TAB 25 MG PO SCH (09:35)
[2022-07-03] MEDS: NICOTINE PATCH TD SCH (09:36)
--- NOTE | 2022-07-03 09:57 | W.DIS.FURT ---
Summary of Discharge Discharge Summary of Date Date of Exam: 07/03/22 Admission Date Date of Admission: 07/01/22 Admission Diagnosis Hospital Course: 61 year old male with severe peripheral vascular disease and tobacco abuse who underwent extensive arterial revascularization of both lower extremities ultimately failing due to his continued use of tobacco. He is status post right above knee amputation. He had continued gangrenous changes of the left leg and this hospitalization underwent an uncomplicated left above knee amputation. He has done well. Pain is controlled. Dressing is intact. He will be discharged back [place] a [place] [facility] today and follow up with me in one week. Vital Signs: Vital Signs (72 hours) 07/02/22 20:40 07/01/22 07:53 07/01/22 07:53 Temperature 98.6 F 97.8 F Pulse Rate 65 85 Pulse Rate [Left Radial] Respiratory Rate 18 19 Blood Pressure 129/60 144/69 Blood Pressure [Right Arm] O2 Sat by Pulse Oximetry 97 95 Oxygen Delivery Method Room Air Room Air 07/01/22 09:40 07/01/22 10:07 07/01/22 10:32 Temperature 98.2 F Pulse Rate 90 Pulse Rate [Left Radial] Respiratory Rate 18 18 18 Blood Pressure 169/72 Blood Pressure [Right Arm] O2 Sat by Pulse Oximetry 99 Oxygen Delivery Method Aerosol Face Tent 07/01/22 10:37 07/01/22 10:54 07/01/22 10:42 Temperature Pulse Rate 88 91 H Pulse Rate [Left Radial] Respiratory Rate 18 18 18 Blood Pressure 148/67 166/59 Blood Pressure [Right Arm] O2 Sat by Pulse Oximetry 99 98 Oxygen Delivery Method Aerosol Face Tent Aerosol Face Tent 07/01/22 10:47 07/01/22 10:52 07/01/22 10:57 Temperature Pulse Rate 87 89 Pulse Rate [Left Radial] Respiratory Rate 18 18 18 Blood Pressure 155/60 166/52 Blood Pressure [Right Arm] O2 Sat by Pulse Oximetry 99 99 Oxygen Delivery Method Aerosol Face Tent Aerosol Face Tent 07/01/22 10:57 07/01/22 11:02 07/01/22 12:42 Temperature Pulse Rate 90 98 H Pulse Rate [Left Radial] Respiratory Rate 18 18 18 Blood Pressure 146/66 158/71 Blood Pressure [Right Arm] O2 Sat by Pulse Oximetry 100 96 Oxygen Delivery Method Room Air Room Air 07/01/22 12:00 07/01/22 15:19 07/01/22 16:00 Temperature 98.3 F 97.7 F Pulse Rate Pulse Rate [Left Radial] 83 78 Respiratory Rate 18 16 18 Blood Pressure Blood Pressure [Right Arm] 149/65 136/63 O2 Sat by Pulse Oximetry 96 97 Oxygen Delivery Method 07/01/22 11:30 07/01/22 11:45 07/01/22 12:00 Temperature 98.0 F 97.9 F 97.8 F Pulse Rate Pulse Rate [Left Radial] 89 89 80 Respiratory Rate 16 16 16 Blood Pressure Blood Pressure [Right Arm] 139/71 134/61 138/63 O2 Sat by Pulse Oximetry 96 96 96 Oxygen Delivery Method 07/01/22 12:15 07/01/22 12:30 07/01/22 13:30 Temperature 98.0 F 97.9 F 98.2 F Pulse Rate Pulse Rate [Left Radial] 82 80 78 Respiratory Rate 18 16 16 Blood Pressure Blood Pressure [Right Arm] 150/65 146/62 141/63 O2 Sat by Pulse Oximetry 96 96 96 Oxygen Delivery Method 07/01/22 14:30 07/01/22 15:30 07/01/22 16:30 Temperature 97.8 F 98.0 F 97.7 F Pulse Rate Pulse Rate [Left Radial] 80 86 84 Respiratory Rate 18 16 18 Blood Pressure Blood Pressure [Right Arm] 136/60 138/63 138/63 O2 Sat by Pulse Oximetry 96 95 97 Oxygen Delivery Method 07/01/22 19:13 07/01/22 19:43 07/01/22 20:00 Temperature 97.6 F Pulse Rate Pulse Rate [Left Radial] 75 Respiratory Rate 18 16 18 Blood Pressure Blood Pressure [Right Arm] 132/60 O2 Sat by Pulse Oximetry 97 Oxygen Delivery Method 07/01/22 19:00 07/02/22 00:00 07/02/22 01:02 Temperature 98.8 F Pulse Rate Pulse Rate [Left Radial] 68 Respiratory Rate 18 18 Blood Pressure Blood Pressure [Right Arm] 110/54 O2 Sat by Pulse Oximetry 98 Oxygen Delivery Method Room Air 07/02/22 01:32 07/02/22 04:00 07/02/22 05:19 Temperature 98.8 F Pulse Rate Pulse Rate [Left Radial] 72 Respiratory Rate 18 18 18 Blood Pressure Blood Pressure [Right Arm] 111/51 O2 Sat by Pulse Oximetry 97 Oxygen Delivery Method 07/02/22 05:49 07/02/22 07:00 07/02/22 08:00 Temperature 98.2 F Pulse Rate Pulse Rate [Left Radial] 79 Respiratory Rate 18 18 Blood Pressure Blood Pressure [Right Arm] 123/59 O2 Sat by Pulse Oximetry 95 Oxygen Delivery Method Room Air 07/02/22 10:05 07/02/22 11:50 07/02/22 12:00 Temperature 98.6 F Pulse Rate Pulse Rate [Left Radial] 65 Respiratory Rate 16 18 18 Blood Pressure Blood Pressure [Right Arm] 129/60 O2 Sat by Pulse Oximetry 97 Oxygen Delivery Method 07/02/22 16:00 07/02/22 17:22 07/02/22 19:04 Temperature 98.7 F Pulse Rate Pulse Rate [Left Radial] 72 Respiratory Rate 20 18 16 Blood Pressure Blood Pressure [Right Arm] 116/56 O2 Sat by Pulse Oximetry 97 Oxygen Delivery Method 07/02/22 18:22 07/02/22 19:00 07/02/22 20:00 Temperature 97.8 F Pulse Rate Pulse Rate [Left Radial] 78 Respiratory Rate 16 22 Blood Pressure Blood Pressure [Right Arm] 116/57 O2 Sat by Pulse Oximetry 95 Oxygen Delivery Method Room Air 07/02/22 19:34 07/03/22 00:00 07/03/22 00:36 Temperature 97.9 F Pulse Rate Pulse Rate [Left Radial] 69 Respiratory Rate 16 20 16 Blood Pressure Blood Pressure [Right Arm] 114/56 O2 Sat by Pulse Oximetry 98 Oxygen Delivery Method 07/03/22 01:36 07/03/22 04:44 07/03/22 04:00 Temperature 97.9 F Pulse Rate Pulse Rate [Left Radial] 68 Respiratory Rate 16 16 20 Blood Pressure Blood Pressure [Right Arm] 144/70 O2 Sat by Pulse Oximetry 99 Oxygen Delivery Method 07/03/22 05:14 07/03/22 08:00 Temperature 98.3 F Pulse Rate Pulse Rate [Left Radial] 73 Respiratory Rate 16 18 Blood Pressure Blood Pressure [Right Arm] 100/49 O2 Sat by Pulse Oximetry 98 Oxygen Delivery Method Labs: Laboratory Last Values WBC 9.9 X10^3/uL (3.6-10.0) 07/02/22 05:03 RBC 3.79 X10^6/uL (4.7-6.0) L 07/02/22 05:03 Hgb 10.2 g/dL (13.5-18.0) L 07/02/22 05:03 Hct 30.6 % (42.0-54.0) L 07/02/22 05:03 MCV 80.7 fL (80.0-100.0) 07/02/22 05:03 MCH 26.8 pg (27.0-34.0) L 07/02/22 05:03 MCHC 33.3 g/dL (33.0-35.0) 07/02/22 05:03 RDW 16.7 % (11.6-16.5) H 07/02/22 05:03 Plt Count 333 X10^3/uL (150.0-450.0) 07/02/22 05:03 MPV 7.8 fL (7.4-11.0) 07/02/22 05:03 Neut % (Auto) 77.9 % (42.0-75.0) H 07/02/22 05:03 Lymph % (Auto) 11.5 % (21.0-51.0) L 07/02/22 05:03 [place] % (Auto) 9.0 % (0.0-13.0) 07/02/22 05:03 Eos % (Auto) 0.9 % (0.9-2.9) 07/02/22 05:03 Baso % (Auto) 0.7 % (0.2-1.0) 07/02/22 05:03 Neut # (Auto) 7.7 x10^3/uL (2.2-4.8) H 07/02/22 05:03 Lymph # (Auto) 1.1 X10^3/uL (1.3-2.9) L 07/02/22 05:03 [place] # (Auto) 0.9 x10^3/uL (0.3-0.8) H 07/02/22 05:03 Eos # (Auto) 0.1 x10^3/uL (0.0-0.2) 07/02/22 05:03 Baso # (Auto) 0.1 X10^3/uL (0.0-0.1) 07/02/22 05:03 Absolute Nucleated RBC 0.0 /100WBC 07/02/22 05:03 Sodium 139 mmol/L (136-145) 07/02/22 05:03 Corrected Sodium 139 mmol/L (136-145) 07/02/22 05:03 Potassium 4.2 mmol/L (3.5-5.1) 07/02/22 05:03 Chloride 102 mmol/L (98-107) 07/02/22 05:03 Carbon Dioxide 32.3 mmol/L (21-32) H 07/02/22 05:03 BUN 9 mg/dL (7-18) 07/02/22 05:03 Creatinine 0.41 mg/dL (0.70-1.30) L 07/02/22 05:03 Est GFR (MDRD) Af Amer > 60 (>60) 07/02/22 05:03 Est GFR (MDRD) Non-Af > 60 (>60) 07/02/22 05:03 Glucose 119 mg/dL (65-99) H 07/02/22 05:03 Calcium 9.3 mg/dL (8.5-10.1) 07/02/22 05:03 Corrected Calcium 10.6 mg/dL (8.5-10.1) H 07/02/22 05:03 Total Bilirubin 0.20 mg/dL (0.2-1.0) 07/02/22 05:03 AST 19 Units/L (15-37) 07/02/22 05:03 ALT 11 Units/L (12-78) L 07/02/22 05:03 Alkaline Phosphatase 78 Units/L (46-116) 07/02/22 05:03 Total Protein 6.9 g/dL (6.4-8.2) 07/02/22 05:03 Albumin 2.4 g/dL (3.4-5.0) L 07/02/22 05:03 Globulin 4.5 g/dL (2.5-4.5) 07/02/22 05:03 Albumin/Globulin Ratio 0.5 Ratio (1.1-2.1) L 07/02/22 05:03 Tissue Pathology To follow 07/01/22 10:10 Reason For Visit: ISCHEMIC LEFT LEG Discharge Date Discharge Date: 07/03/22 Discharge Diagnosis All Active Problems (Updated 05/06/22 @ 17:15 by Vasquez Hogan) 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 Pt is to keep follow up appointment as instructed and take medications as ordered. Discharge Medications Discharge Medications: No Known Drug Allergies Allergy (Verified 11/05/21 15:45) CONTINUE taking the following medications oxycodone-acetaminophen 5 mg-325 mg tablet 1 tab PO Q6HR PRN Pain 07/01/22 [ History] Discharge Disposition Assessment: see hospital course above Discharge Plan Discharge Plan Hospital Course: 61 year old male with severe peripheral vascular disease and tobacco abuse who underwent extensive arterial revascularization of both lower extremities ult imately failing due to his continued use of tobacco. He is status post right above knee amputation. He had continued gangrenous changes of the left leg and this hospitalization underwent an uncomplicated left above knee amputation. He has done well. Pain is controlled. Dressing is intact. He will be discharged back to a [place] [facility] facility today and follow up with me in one week. Patient Disposition: 61 DIS ACUTE JAIL CARE Condition: Stable Health Concerns: Post Hospitalization: new medications and changes needed to prevent readmission or further decline. Pt educated and given instructions on all concerns. Care Plan Goals: healing of wounds , pain control Plan of Treatment: Continue with present treatment and follow up plan. Pt is to keep follow up appointment as instructed and take medications as ordered. Assessment: see hospital course above Prescription drug monitoring program results: PDMP reviewed and no concerns identified Prescriptions: No Action Linzess 145 mcg capsule 145 mcg PO DAILY pantoprazole 40 mg Tablet,Delayed Release (Dr/Ec) 40 mg PO DAILY Qty: 30 6RF docusate sodium 100 mg Capsule 200 mg PO HS Qty: 30 0RF metoprolol tartrate 25 mg Tablet 25 mg PO BID Qty: 120 0RF Xarelto 2.5 mg tablet 2.5 mg PO BID Qty: 90 6RF aspirin 81 mg capsule 81 mg PO ONCE Qty: 90 0RF nicotine [Nicoderm CQ] 21 mg/24 hr Patch 24 Hour 1 patch TD DAILY Qty: 30 0RF oxycodone-acetaminophen 5-325 mg tablet 1 tab PO Q6HR MDD 4 PRN (Reason: Pain) Follow ups/Referrals Follow ups/Referrals: [facility]DMisc [Primary Care Provider] - 1 WEEK Instructions Instructions: Stump and Prosthesis Care, Living With an Amputation, Phantom Li mb Pain Stand Alone Forms: Excuse From Work or School, Precautions for COVID19, [facility], Patient Portal, Social Distancing
[2022-07-03 16:19] VITALS: BP 150/82
== END 2022-07-03 18:50 | DRG 239 ==
LOC: MED/SURG 06:09
PROVIDERS: ADMIT Surgery; ATTEND Surgery
DX: Z89.611 Acquired absence of right leg above knee; I70.262 Atherosclerosis of native arteries of extremities with gangrene, left leg; Z72.0 Tobacco use; R26.89 Other abnormalities of gait and mobility; U07.1 COVID-19; I10 Essential (primary) hypertension

== ENCOUNTER 2022-07-22 15:53 | Inpatient (IN) ==
[2022-07-22 18:21] VITALS: BMI 39.3
[2022-07-22] MEDS ORDERED: PHARMACY CONSULT LTC MEDICATIONS XX SCH (19:00)
[2022-07-22 20:36] LABS: BASOPHILS # (AUTO) 0.2 X10^3/uL (0.0-0.1); BASOPHILS % (AUTO) 1.6 % (0.2-1.0); EOSINOPHILS # (AUTO) 0.1 x10^3/uL (0.0-0.2); HEMATOCRIT 31.6 % (42.0-54.0); HEMOGLOBIN 10.5 g/dL (13.5-18.0); LYMPHOCYTES # (AUTO) 1.5 X10^3/uL (1.3-2.9); LYMPHOCYTES % (AUTO) 12.5 % (21.0-51.0); MEAN CORPUSCULAR HEMOGLOBIN 26.5 pg (27.0-34.0); MEAN CORPUSCULAR HGB CONC 33.2 g/dL (33.0-35.0); MEAN CORPUSCULAR VOLUME 79.8 fL (80.0-100.0); MEAN PLATELET VOLUME 7.9 fL (7.4-11.0); MONOCYTES # (AUTO) 1.1 x10^3/uL (0.3-0.8); MONOCYTES % (AUTO) 9.2 % (0.0-13.0); NEUTROPHILS % (AUTO) 75.7 % (42.0-75.0); RED BLOOD COUNT 3.96 X10^6/uL (4.7-6.0); RED CELL DISTRIBUTION WIDTH 16.3 % (11.6-16.5); WHITE BLOOD COUNT 11.9 X10^3/uL (3.6-10.0)
[2022-07-22 20:51] LABS: ALANINE AMINOTRANSFERASE 28 Units/L (12-78); ALBUMIN 2.5 g/dL (3.4-5.0); ALKALINE PHOSPHATASE 92 Units/L (46-116); ASPARTATE AMINO TRANSFERASE 19 Units/L (15-37); BLOOD UREA NITROGEN 9 mg/dL (7-18); CALCIUM 8.5 mg/dL (8.5-10.1); CARBON DIOXIDE 32.7 mmol/L (21-32); CHLORIDE 96 mmol/L (98-107); COR CA(FOR HYPOALB) 9.7 mg/dL (8.5-10.1); COR NA(FOR HYPERGLY) 134 mmol/L (136-145); CREATININE 0.38 mg/dL (0.70-1.30); SODIUM 132 mmol/L (136-145); eGFR NON BLACK RACES > 60 (>60)
[2022-07-22] MEDS: LR 1,000 ML IV 1,000 ML IV SCH (22:04)
[2022-07-22] MEDS: ZOSYN VIAL 3.375 GRAMS 3.375 G in NS 100 ML IV 100 ML IV SCH (22:04)
[2022-07-22] MEDS: DILAUDID INJ IVP PRN (22:08)
--- NOTE | 2022-07-22 23:55 | DR.H&P ---
H&P History & Physical for Day of: H&P Date: 07/22/22 Chief Complaint Chief Complaint: Left above knee amputation stump has opened up . Allergies Allergies Allergy/AdvReac Type Severity Reaction Status Date / Time No Known Drug Allergies Allergy Verified 11/05/21 15:45 History of Present Illness History of Present Illness: 60 year old male history of severe peripheral vascular disease who had multiple bilateral lower extremity reconstructions which ultimately failed because of continued tobacco abuse. Patient is now status post bilateral above knee amputations with the left one being done approximately four weeks ago. [place] have been removed now he has the dehiscence of the left above knee stump and was transferred [facility] hospital for care . Past Medical History Past Medical History: Hypertension Additional Medical History: Patient with heavy smoking history. Patient has been deaf since but is educated, can read and write ( that is how we communicated ) and is oriented to person , place and time. History also obtained from his sister over the phone. Past Surgical History Surgical History: Ortho Surgery and Other Additional Surgical History: History of femoral femoral bypass for occluded left common iliac and femoral popliteal bypass for severe ischemia right leg done in December of 2020. All this appears to be occluded now . At that time he was prepared for amputation of the right great toe. His sister notes that he is non- compliant with treatment. He continues to smoke cigarettes heavily and takes no other medications despite having recognized high blood pressure on admission. Family History Family Medical History: Heart Failure Social History Does patient currently use any type of tobacco product: No Have you used tobacco products in the last 12 months: No Type of Tobacco Use: None Does any household member use tobacco: No Alcohol Use: None Drug Use: None Medications Home Medications: No Known Drug Allergies Allergy (Verified 11/05/21 15:45) Labs Result Diagrams: 07/22/22 20:20 07/22/22 20:20 Labs: Laboratory WBC 11.9 X10^3/uL (3.6-10.0) H 07/22/22 20:20 RBC 3.96 X10^6/uL (4.7-6.0) L 07/22/22 20:20 Hgb 10.5 g/dL (13.5-18.0) L 07/22/22 20:20 Hct 31.6 % (42.0-54.0) L 07/22/22 20:20 MCV 79.8 fL (80.0-100.0) L 07/22/22 20:20 MCH 26.5 pg (27.0-34.0) L 07/22/22 20:20 MCHC 33.2 g/dL (33.0-35.0) 07/22/22 20:20 RDW 16.3 % (11.6-16.5) 07/22/22 20:20 Plt Count 310 X10^3/uL (150.0-450.0) 07/22/22 20:20 MPV 7.9 fL (7.4-11.0) 07/22/22 20:20 Neut % (Auto) 75.7 % (42.0-75.0) H 07/22/22 20:20 Lymph % (Auto) 12.5 % (21.0-51.0) L 07/22/22 20:20 [place] % (Auto) 9.2 % (0.0-13.0) 07/22/22 20:20 Eos % (Auto) 1.0 % (0.9-2.9) 07/22/22 20:20 Baso % (Auto) 1.6 % (0.2-1.0) H 07/22/22 20:20 Neut # (Auto) 9.0 x10^3/uL (2.2-4.8) H 07/22/22 20:20 Lymph # (Auto) 1.5 X10^3/uL (1.3-2.9) 07/22/22 20:20 [place] # (Auto) 1.1 x10^3/uL (0.3-0.8) H 07/22/22 20:20 Eos # (Auto) 0.1 x10^3/uL (0.0-0.2) 07/22/22 20:20 Baso # (Auto) 0.2 X10^3/uL (0.0-0.1) H 07/22/22 20:20 Absolute Nucleated RBC 0.0 /100WBC 07/22/22 20:20 Sodium 132 mmol/L (136-145) L 07/22/22 20:20 Corrected Sodium 134 mmol/L (136-145) L 07/22/22 20:20 Potassium 4.0 mmol/L (3.5-5.1) 07/22/22 20:20 Chloride 96 mmol/L (98-107) L 07/22/22 20:20 Carbon Dioxide 32.7 mmol/L (21-32) H 07/22/22 20:20 BUN 9 mg/dL (7-18) 07/22/22 20:20 Creatinine 0.38 mg/dL (0.70-1.30) L 07/22/22 20:20 Est GFR (MDRD) Af Amer > 60 (>60) 07/22/22 20:20 Est GFR (MDRD) Non-Af > 60 (>60) 07/22/22 20:20 Glucose 168 mg/dL (65-99) H 07/22/22 20:20 Calcium 8.5 mg/dL (8.5-10.1) 07/22/22 20:20 Corrected Calcium 9.7 mg/dL (8.5-10.1) 07/22/22 20:20 Total Bilirubin 0.20 mg/dL (0.2-1.0) 07/22/22 20:20 AST 19 Units/L (15-37) 07/22/22 20:20 ALT 28 Units/L (12-78) 07/22/22 20:20 Alkaline Phosphatase 92 Units/L (46-116) 07/22/22 20:20 Total Protein 7.0 g/dL (6.4-8.2) 07/22/22 20:20 Albumin 2.5 g/dL (3.4-5.0) L 07/22/22 20:20 Globulin 4.5 g/dL (2.5-4.5) 07/22/22 20:20 Albumin/Globulin Ratio 0.6 Ratio (1.1-2.1) L 07/22/22 20:20 Review of Systems Constitutional: See HPI Eyes: No Symptoms Reported ENT: No Symptoms Reported Respiratory: No Symptoms Reported Cardiovascular: No Symptoms Reported Gastrointestinal: No Symptoms Reported Genitourinary: No Symptoms Reported Musculoskeletal: See HPI Skin: See HPI Neurological: No Symptoms Reported Physical Exam Vital Signs: Temperature 99.3 F Pulse Rate [Brachial] 85 Respiratory Rate 18 Blood Pressure [Right Arm] 143/67 O2 Sat by Pulse Oximetry 96 Oriented: Normal, Time, Person, Place and Other (The patient is deaf but communicates with the written word. ) Eyes: Normal Ear: Normal Nose: Normal Throat: Normal Respiratory: Clear Throughout Cardiovascular: Normal : Normal Auscultation: Bowel Sounds: Normal Palpation: Normal Tenderness: Normal Skin: Normal Musculoskeletal: Leg (Status post bilateral above knee amputation of the left above knee stump ) Mood Description: Calm Assessment/Plan (1) Gangrene of right lower extremity due to atherosclerosis: Status: Acute Plan: Status post right above knee amputation (2) History of angioplasty of peripheral vessel: Status: Acute (3) Critical limb ischemia of left lower extremity with gangrene: Status: Acute Plan: status post left above knee amputation (4) Hypertension: Status: Acute (5) Tobacco abuse disorder: Status: Acute Plan: nicotine patch (6) Critical limb ischemia of right lower extremity with gangrene: Status: Acute (7) Dehiscence of amputation stump of left lower extremity: Status: Acute Plan: admit for IV antibiotics, debridement and placement of wound vacuum
[2022-07-23] MEDS: ZOSYN VIAL 3.375 GRAMS 3.375 G in NS 100 ML IV 100 ML IV SCH ×4 (02:38→20:42)
[2022-07-23] MEDS: DILAUDID INJ IVP PRN ×6 (07:32→21:42)
[2022-07-23] MEDS: ASPIRIN EC 81 MG PO SCH (08:31)
[2022-07-23] MEDS: LOPRESSOR TAB 25 MG PO SCH ×2 (08:31→20:43)
[2022-07-23] MEDS: PROTONIX TAB 40 MG PO SCH (08:32)
[2022-07-23] MEDS: NICOTINE PATCH TD SCH (08:50)
[2022-07-23] MEDS: LR 1,000 ML IV 1,000 ML IV SCH ×3 (10:34→22:26)
[2022-07-23] MEDS: PERCOCET TAB 5/325 MG PO PRN ×3 (12:05→20:52)
[2022-07-23] MEDS: LOVENOX INJ 40 MG SYR SC SCH (13:39)
--- NOTE | 2022-07-23 20:31 | NOTE.SOAP ---
Soap Note Note for Day of Date of Exam: 07/23/22 Subjective Data Subjective Data: HD # 1 for dehiscence of left above knee stump. Objective Data Temperature: 98.3 F Pulse Rate: 75 Respiratory Rate: 18 Blood Pressure: 128/60 O2 Sat by Pulse Oximetry: 96 Objective Data: Stump wound on left 8x 5 cm of necrotic material. hgb= 10.5, WBC=11.9, BMP wnl Assessment Assessment: left above knee stump with dehiscence Plan Plan: Continue IV antibiotics and plan debridement of left AKA stump and place wound vacuum in AM.
[2022-07-23] MEDS: COLACE CAP 100 MG PO SCH (20:43)
[2022-07-24] MEDS: ZOSYN VIAL 3.375 GRAMS 3.375 G in NS 100 ML IV 100 ML IV SCH ×4 (01:44→20:29)
[2022-07-24] MEDS: DILAUDID INJ IVP PRN ×10 (05:05→23:20)
[2022-07-24] MEDS: LR 1,000 ML IV 1,000 ML IV SCH ×3 (05:06→20:31)
[2022-07-24] MEDS ORDERED: BETADINE SOLN ONE (06:39)
[2022-07-24] MEDS ORDERED: VERSED ONE (06:53)
[2022-07-24] MEDS ORDERED: FENTANYL VIAL INJ 100 mcg ONE (06:53)
[2022-07-24] MEDS ORDERED: DIPRIVAN VIAL 20 ML ONE (06:55)
[2022-07-24] MEDS ORDERED: MARCAINE 0.5% ONE (06:57)
[2022-07-24] MEDS ORDERED: LR 1,000 ML IV 1,000 ML IV ONE (07:21)
[2022-07-24] MEDS ORDERED: BRIDION ONE (07:40)
[2022-07-24] MEDS ORDERED: ZEMURON 100 MG VIAL ONE (07:40)
[2022-07-24] MEDS ORDERED: OFIRMEV IV 1000 MG VIAL 1,000 MG/100 ML VIAL IV ONE (07:42)
[2022-07-24] MEDS ORDERED: TORADOL 30 MG VIAL ONE (07:42)
[2022-07-24] MEDS ORDERED: MARCAINE/EPINEPHRINE ONE (07:42)
[2022-07-24] MEDS ORDERED: ULTANE GAS IN ONE (07:46)
--- NOTE | 2022-07-24 08:39 | OR.IMMED ---
IMMEDIATE POST-OP NOTE Immediate Post-Op Note Pre-Op Diagnosis: dehiscence left above knee amputation stump Post-Op Diagnosis: same Procedure: debridement left AKA stump and place wound vacuum Description of Procedure: see operative summary Surgeon/Mill Tender Warm Up: [place] Findings: as above, Wound 20 x18 x 8 cm Estimated Blood Loss: < 50 cc Complications: none Post Hospital Plans and Medications: To floor , continue IV antibiotics and wound vacuum
[2022-07-24] MEDS ORDERED: DILAUDID INJ ONE ×3 (08:42→09:10)
[2022-07-24] MEDS ORDERED: REGLAN INJ 10 MG VIAL IVP PRN (08:53)
[2022-07-24] MEDS ORDERED: ZOFRAN INJ 4 MG VIAL IVP PRN (08:53)
[2022-07-24] MEDS ORDERED: BARHEMSYS INJ IVP PRN (08:53)
[2022-07-24] MEDS ORDERED: PHENERGAN INJ 25 MG IM PRN (08:53)
[2022-07-24] MEDS ORDERED: BENADRYL INJ 50 MG VIAL IVP PRN (08:53)
[2022-07-24] MEDS: NICOTINE PATCH TD SCH ×2 (09:01→09:47)
[2022-07-24] MEDS: PROTONIX TAB 40 MG PO SCH (09:01)
[2022-07-24] MEDS: LOVENOX INJ 40 MG SYR SC SCH (09:01)
[2022-07-24] MEDS: ASPIRIN EC 81 MG PO SCH (09:01)
[2022-07-24] MEDS: LOPRESSOR TAB 25 MG PO SCH ×2 (09:01→20:31)
[2022-07-24] MEDS: CHECK PATCH XX SCH ×2 (09:47→20:32)
--- NOTE | 2022-07-24 14:17 | DR.OPNOTE ---
OP NOTE Pre-Op Diagnosis: Dehiscence left above knee stump with exposed femur. Post-Op Diagnosis: same Procedure Date Date Of Procedure: 07/24/22 Procedure: PROCEDURE : Excisional debridement of left above knee stump including bone, i. e. Femur and placement of wound vacuum . Wound measures [id number] cm . NARRATIVE: The patient was taken to the operative suite and placed in the supine position and general endotracheal anesthesia induced. The dressing of the left above knee stump was removed revealing necrotic skin incision with exposed femur measuring approximately 20 by 18 by 8cm. Vicryl sutures closing the subcutaneous tissue were removed. The femur was shortened using a Gigli saw. All necrotic material removed with electrocautery or metzenbaum scissors. Black foam placed over the wound and covered with adhesive wrap. 1 inch square incision made over the mid portion of the black foam extending a foam tract to the anterior thigh and covered it with adhesive. Incision made over the most superior end of the tract and the round suction device applied to this and it placed on suction at 150 ml of Hg with continuous suction. There were no air leaks when we finished. Patient was extubated and taken to the PACU in good condition. Type of Anesthesia: General Anesthetic w/ETT Findings: as above Specimen/Pathology: Femur section Type of Fluids Used:: Lactated Ringers EBL: < 50 cc Complications:: none Needle/Sponge Count:: correct Disposition/Condition: Pt. tolerated procedure without difficulty. Extubated in the OR and taken to PACU in stable condition.
[2022-07-24] MEDS: PERCOCET TAB 5/325 MG PO PRN ×2 (15:11→20:29)
[2022-07-24] MEDS: COLACE CAP 100 MG PO SCH (20:30)
[2022-07-25] MEDS: LR 1,000 ML IV 1,000 ML IV SCH ×2 (00:02→13:20)
[2022-07-25] MEDS: PERCOCET TAB 5/325 MG PO PRN ×4 (00:10→16:23)
[2022-07-25] MEDS: DILAUDID INJ IVP PRN ×6 (01:56→12:40)
[2022-07-25] MEDS: ZOSYN VIAL 3.375 GRAMS 3.375 G in NS 100 ML IV 100 ML IV SCH ×3 (01:56→14:01)
[2022-07-25 06:31] LABS: BASOPHILS # (AUTO) 0.1 X10^3/uL (0.0-0.1); BASOPHILS % (AUTO) 0.9 % (0.2-1.0); EOSINOPHILS # (AUTO) 0.3 x10^3/uL (0.0-0.2); EOSINOPHILS % (AUTO) 3.5 % (0.9-2.9); HEMATOCRIT 27.4 % (42.0-54.0); LYMPHOCYTES # (AUTO) 1.5 X10^3/uL (1.3-2.9); LYMPHOCYTES % (AUTO) 16.3 % (21.0-51.0); MEAN CORPUSCULAR HEMOGLOBIN 26.5 pg (27.0-34.0); MEAN CORPUSCULAR HGB CONC 32.9 g/dL (33.0-35.0); MEAN CORPUSCULAR VOLUME 80.5 fL (80.0-100.0); MONOCYTES # (AUTO) 0.9 x10^3/uL (0.3-0.8); MONOCYTES % (AUTO) 9.4 % (0.0-13.0); NEUTROPHILS # (AUTO) 6.4 x10^3/uL (2.2-4.8); NEUTROPHILS % (AUTO) 69.9 % (42.0-75.0); WHITE BLOOD COUNT 9.1 X10^3/uL (3.6-10.0)
[2022-07-25] MEDS: LOVENOX INJ 40 MG SYR SC SCH (08:20)
[2022-07-25] MEDS: NICOTINE PATCH TD SCH (08:20)
[2022-07-25] MEDS: PROTONIX TAB 40 MG PO SCH (08:21)
[2022-07-25] MEDS: LOPRESSOR TAB 25 MG PO SCH (08:21)
[2022-07-25] MEDS: ASPIRIN EC 81 MG PO SCH (08:21)
[2022-07-25] MEDS: CHECK PATCH XX SCH (08:26)
[2022-07-25 16:02] VITALS: BP 118/58
--- NOTE | 2022-07-25 16:15 | W.DIS.FURT ---
Summary of Discharge Discharge Summary of Date Date of Exam: 07/25/22 Admission Date Date of Admission: 07/22/22 Admission Diagnosis Hospital Course: This is a 61 year old male with significant tobacco abuse history and significant bilateral lower extremity arterial disease. He underwent multiple arterial interventions both legs and they ultimately failed due to his continued smoking. He has now undergone bilateral above-knee amputation, the most recent one being on the left side. He presented with wound dehiscence of the left above knee amputation stump with exposure of the femur . He was admitted on July 22 for fluids and IV antibiotics. He was taken to the operating Suite on 07/24 for debridement of the left above knee amputation stump wound measuring approximately 20 by 18 x 8 cm which included removal of the distal end of the femur and placement of a wound vacuum. He will be discharged today on as usual medications Plus fentanyl patch, 50 mg every 72 hours and Percocet, 10 mg tablets, one every six hours prn Pain. His wound VAC will be changed three times a week and he will follow up in my office in one week. Vital Signs: Vital Signs (72 hours) 07/23/22 20:31 07/22/22 17:50 07/22/22 22:08 Temperature 98.3 F Pulse Rate 75 Pulse Rate [Brachial] Respiratory Rate 18 18 Blood Pressure 128/60 Blood Pressure [Right Arm] O2 Sat by Pulse Oximetry 96 Oxygen Delivery Method Room Air 07/22/22 20:00 07/22/22 19:00 07/22/22 22:38 Temperature 99.3 F Pulse Rate Pulse Rate [Brachial] 85 Respiratory Rate 20 18 Blood Pressure Blood Pressure [Right Arm] 143/67 O2 Sat by Pulse Oximetry 96 Oxygen Delivery Method Room Air Room Air 07/23/22 00:00 07/23/22 04:00 07/23/22 07:32 Temperature 98.6 F 99.2 F Pulse Rate Pulse Rate [Brachial] 80 89 Respiratory Rate 19 18 18 Blood Pressure Blood Pressure [Right Arm] 142/63 145/67 O2 Sat by Pulse Oximetry 96 96 Oxygen Delivery Method Room Air Room Air 07/23/22 07:00 07/23/22 08:00 07/23/22 08:02 Temperature 98.8 F Pulse Rate Pulse Rate [Brachial] 80 Respiratory Rate 18 18 Blood Pressure Blood Pressure [Right Arm] 127/60 O2 Sat by Pulse Oximetry 96 Oxygen Delivery Method Room Air Room Air 07/23/22 10:16 07/23/22 10:46 07/23/22 12:05 Temperature Pulse Rate Pulse Rate [Brachial] Respiratory Rate 18 18 18 Blood Pressure Blood Pressure [Right Arm] O2 Sat by Pulse Oximetry Oxygen Delivery Method 07/23/22 12:00 07/23/22 13:05 07/23/22 14:15 Temperature 98.4 F Pulse Rate Pulse Rate [Brachial] 72 Respiratory Rate 20 18 20 Blood Pressure Blood Pressure [Right Arm] 144/65 O2 Sat by Pulse Oximetry 95 Oxygen Delivery Method Room Air 07/23/22 14:45 07/23/22 16:22 07/23/22 16:00 Temperature 98.1 F Pulse Rate Pulse Rate [Brachial] 74 Respiratory Rate 20 20 18 Blood Pressure Blood Pressure [Right Arm] 122/56 O2 Sat by Pulse Oximetry 96 Oxygen Delivery Method Room Air 07/23/22 16:51 07/23/22 17:09 07/23/22 18:09 Temperature Pulse Rate Pulse Rate [Brachial] Respiratory Rate 18 20 20 Blood Pressure Blood Pressure [Right Arm] O2 Sat by Pulse Oximetry Oxygen Delivery Method 07/23/22 19:47 07/23/22 20:00 07/23/22 20:52 Temperature 98.3 F Pulse Rate Pulse Rate [Brachial] 75 Respiratory Rate 20 18 20 Blood Pressure Blood Pressure [Right Arm] 128/60 O2 Sat by Pulse Oximetry 96 Oxygen Delivery Method Room Air 07/23/22 21:42 07/23/22 20:17 07/23/22 19:00 Temperature Pulse Rate Pulse Rate [Brachial] Respiratory Rate 20 20 Blood Pressure Blood Pressure [Right Arm] O2 Sat by Pulse Oximetry Oxygen Delivery Method Room Air 07/23/22 21:52 07/23/22 22:12 07/23/22 23:47 Temperature 98.1 F Pulse Rate Pulse Rate [Brachial] 71 Respiratory Rate 20 20 18 Blood Pressure Blood Pressure [Right Arm] 117/55 O2 Sat by Pulse Oximetry 97 Oxygen Delivery Method Room Air 07/24/22 03:51 07/24/22 05:05 07/24/22 05:35 Temperature 98.2 F Pulse Rate Pulse Rate [Brachial] 81 Respiratory Rate 20 20 21 Blood Pressure Blood Pressure [Right Arm] 156/71 O2 Sat by Pulse Oximetry 97 Oxygen Delivery Method Room Air 07/24/22 07:29 07/24/22 07:00 07/24/22 08:36 Temperature 98.2 F 97.4 F L Pulse Rate 67 77 Pulse Rate [Brachial] Respiratory Rate 18 18 Blood Pressure 139/67 160/79 Blood Pressure [Right Arm] O2 Sat by Pulse Oximetry 98 100 Oxygen Delivery Method Room Air Room Air Aerosol Face Tent 07/24/22 08:41 07/24/22 08:46 07/24/22 08:51 Temperature Pulse Rate 73 71 71 Pulse Rate [Brachial] Respiratory Rate 18 18 18 Blood Pressure 151/71 149/73 159/75 Blood Pressure [Right Arm] O2 Sat by Pulse Oximetry 100 100 100 Oxygen Delivery Method Aerosol Face Tent Aerosol Face Tent Aerosol Face Tent 07/24/22 08:44 07/24/22 08:49 07/24/22 08:54 Temperature Pulse Rate Pulse Rate [Brachial] Respiratory Rate 18 18 18 Blood Pressure Blood Pressure [Right Arm] O2 Sat by Pulse Oximetry Oxygen Delivery Method 07/24/22 08:56 07/24/22 07:46 07/24/22 09:01 Temperature Pulse Rate 71 Pulse Rate [Brachial] Respiratory Rate 18 18 18 Blood Pressure 152/71 Blood Pressure [Right Arm] O2 Sat by Pulse Oximetry 97 Oxygen Delivery Method Room Air 07/24/22 09:01 07/24/22 09:06 07/24/22 09:11 Temperature Pulse Rate 78 76 Pulse Rate [Brachial] Respiratory Rate 18 18 18 Blood Pressure 150/65 149/70 Blood Pressure [Right Arm] O2 Sat by Pulse Oximetry 97 97 Oxygen Delivery Method Room Air Room Air 07/24/22 09:11 07/24/22 09:16 07/24/22 09:16 Temperature Pulse Rate 76 74 Pulse Rate [Brachial] Respiratory Rate 18 18 18 Blood Pressure 131/69 132/66 Blood Pressure [Right Arm] O2 Sat by Pulse Oximetry 96 96 Oxygen Delivery Method Room Air Room Air 07/24/22 09:21 07/24/22 09:35 07/24/22 09:50 Temperature 98.3 F 98.3 F Pulse Rate 66 Pulse Rate [Brachial] 75 64 Respiratory Rate 18 18 18 Blood Pressure 131/73 Blood Pressure [Right Arm] 129/72 124/60 O2 Sat by Pulse Oximetry 99 98 100 Oxygen Delivery Method Nasal Cannula Room Air Room Air 07/24/22 10:05 07/24/22 10:20 07/24/22 10:35 Temperature 98.3 F 97.9 F 97.9 F Pulse Rate Pulse Rate [Brachial] 58 L 55 L 62 Respiratory Rate 18 18 18 Blood Pressure Blood Pressure [Right Arm] 120/57 118/57 131/61 O2 Sat by Pulse Oximetry 100 100 100 Oxygen Delivery Method Room Air Room Air 07/24/22 11:35 07/24/22 14:03 07/24/22 14:33 Temperature 97.9 F Pulse Rate Pulse Rate [Brachial] 56 L Respiratory Rate 18 18 18 Blood Pressure Blood Pressure [Right Arm] 135/60 O2 Sat by Pulse Oximetry 100 Oxygen Delivery Method 07/24/22 15:11 07/24/22 12:35 07/24/22 13:35 Temperature 97.9 F Pulse Rate Pulse Rate [Brachial] 72 78 Respiratory Rate 18 18 18 Blood Pressure Blood Pressure [Right Arm] 132/64 118/58 O2 Sat by Pulse Oximetry 100 100 Oxygen Delivery Method 07/24/22 14:35 07/24/22 15:34 07/24/22 16:40 Temperature 98.4 F Pulse Rate Pulse Rate [Brachial] 86 82 Respiratory Rate 18 18 20 Blood Pressure Blood Pressure [Right Arm] 129/94 130/61 O2 Sat by Pulse Oximetry 100 98 Oxygen Delivery Method 07/24/22 16:11 07/24/22 17:10 07/24/22 19:18 Temperature Pulse Rate Pulse Rate [Brachial] Respiratory Rate 18 20 20 Blood Pressure Blood Pressure [Right Arm] O2 Sat by Pulse Oximetry Oxygen Delivery Method 07/24/22 19:00 07/24/22 20:00 07/24/22 19:48 Temperature 97.8 F Pulse Rate Pulse Rate [Brachial] 77 Respiratory Rate 21 20 Blood Pressure Blood Pressure [Right Arm] 127/58 O2 Sat by Pulse Oximetry 100 Oxygen Delivery Method Room Air 07/24/22 20:29 07/24/22 21:29 07/24/22 23:20 Temperature Pulse Rate Pulse Rate [Brachial] Respiratory Rate 18 21 20 Blood Pressure Blood Pressure [Right Arm] O2 Sat by Pulse Oximetry Oxygen Delivery Method 07/24/22 23:25 07/24/22 23:50 07/25/22 00:10 Temperature 98.2 F Pulse Rate Pulse Rate [Brachial] 75 Respiratory Rate 21 20 20 Blood Pressure Blood Pressure [Right Arm] 137/60 O2 Sat by Pulse Oximetry 100 Oxygen Delivery Method 07/25/22 01:10 07/25/22 01:56 07/25/22 02:26 Temperature Pulse Rate Pulse Rate [Brachial] Respiratory Rate 20 18 18 Blood Pressure Blood Pressure [Right Arm] O2 Sat by Pulse Oximetry Oxygen Delivery Method 07/25/22 03:30 07/25/22 03:47 07/25/22 04:17 Temperature 98.0 F Pulse Rate Pulse Rate [Brachial] 66 Respiratory Rate 20 18 18 Blood Pressure Blood Pressure [Right Arm] 128/59 O2 Sat by Pulse Oximetry 100 Oxygen Delivery Method Room Air 07/25/22 05:17 07/25/22 05:37 07/25/22 06:07 Temperature Pulse Rate Pulse Rate [Brachial] Respiratory Rate 18 18 18 Blood Pressure Blood Pressure [Right Arm] O2 Sat by Pulse Oximetry Oxygen Delivery Method 07/25/22 06:17 07/25/22 07:00 07/25/22 07:40 Temperature 98.3 F Pulse Rate Pulse Rate [Brachial] 66 Respiratory Rate 18 18 Blood Pressure Blood Pressure [Right Arm] 119/58 O2 Sat by Pulse Oximetry 99 Oxygen Delivery Method Room Air Room Air 07/25/22 08:22 07/25/22 09:35 07/25/22 08:52 Temperature Pulse Rate Pulse Rate [Brachial] Respiratory Rate 18 18 18 Blood Pressure Blood Pressure [Right Arm] O2 Sat by Pulse Oximetry Oxygen Delivery Method 07/25/22 10:35 07/25/22 10:39 07/25/22 12:00 Temperature 98.0 F Pulse Rate Pulse Rate [Brachial] 70 Respiratory Rate 18 20 18 Blood Pressure Blood Pressure [Right Arm] 111/53 O2 Sat by Pulse Oximetry 98 Oxygen Delivery Method Room Air 07/25/22 11:09 07/25/22 12:40 07/25/22 13:10 Temperature Pulse Rate Pulse Rate [Brachial] Respiratory Rate 20 18 18 Blood Pressure Blood Pressure [Right Arm] O2 Sat by Pulse Oximetry Oxygen Delivery Method 07/25/22 16:00 Temperature 99.0 F Pulse Rate Pulse Rate [Brachial] 75 Respiratory Rate 18 Blood Pressure Blood Pressure [Right Arm] 118/58 O2 Sat by Pulse Oximetry 100 Oxygen Delivery Method Labs: Laboratory Last Values WBC 9.1 X10^3/uL (3.6-10.0) 07/25/22 05:52 RBC 3.40 X10^6/uL (4.7-6.0) L 07/25/22 05:52 Hgb 9.0 g/dL (13.5-18.0) L 07/25/22 05:52 Hct 27.4 % (42.0-54.0) L 07/25/22 05:52 MCV 80.5 fL (80.0-100.0) 07/25/22 05:52 MCH 26.5 pg (27.0-34.0) L 07/25/22 05:52 MCHC 32.9 g/dL (33.0-35.0) L 07/25/22 05:52 RDW 16.0 % (11.6-16.5) 07/25/22 05:52 Plt Count 277 X10^3/uL (150.0-450.0) 07/25/22 05:52 MPV 8.0 fL (7.4-11.0) 07/25/22 05:52 Neut % (Auto) 69.9 % (42.0-75.0) 07/25/22 05:52 Lymph % (Auto) 16.3 % (21.0-51.0) L 07/25/22 05:52 [place] % (Auto) 9.4 % (0.0-13.0) 07/25/22 05:52 Eos % (Auto) 3.5 % (0.9-2.9) H 07/25/22 05:52 Baso % (Auto) 0.9 % (0.2-1.0) 07/25/22 05:52 Neut # (Auto) 6.4 x10^3/uL (2.2-4.8) H 07/25/22 05:52 Lymph # (Auto) 1.5 X10^3/uL (1.3-2.9) 07/25/22 05:52 Pacific # (Auto) 0.9 x10^3/uL (0.3-0.8) H 07/25/22 05:52 Eos # (Auto) 0.3 x10^3/uL (0.0-0.2) H 07/25/22 05:52 Baso # (Auto) 0.1 X10^3/uL (0.0-0.1) 07/25/22 05:52 Absolute Nucleated RBC 0.0 /100WBC 07/25/22 05:52 Sodium 132 mmol/L (136-145) L 07/22/22 20:20 Corrected Sodium 134 mmol/L (136-145) L 07/22/22 20:20 Potassium 4.0 mmol/L (3.5-5.1) 07/22/22 20:20 Chloride 96 mmol/L (98-107) L 07/22/22 20:20 Carbon Dioxide 32.7 mmol/L (21-32) H 07/22/22 20:20 BUN 9 mg/dL (7-18) 07/22/22 20:20 Creatinine 0.38 mg/dL (0.70-1.30) L 07/22/22 20:20 Est GFR (MDRD) Af Amer > 60 (>60) 07/22/22 20:20 Est GFR (MDRD) Non-Af > 60 (>60) 07/22/22 20:20 Glucose 168 mg/dL (65-99) H 07/22/22 20:20 Calcium 8.5 mg/dL (8.5-10.1) 07/22/22 20:20 Corrected Calcium 9.7 mg/dL (8.5-10.1) 07/22/22 20:20 Total Bilirubin 0.20 mg/dL (0.2-1.0) 07/22/22 20:20 AST 19 Units/L (15-37) 07/22/22 20:20 ALT 28 Units/L (12-78) 07/22/22 20:20 Alkaline Phosphatase 92 Units/L (46-116) 07/22/22 20:20 Total Protein 7.0 g/dL (6.4-8.2) 07/22/22 20:20 Albumin 2.5 g/dL (3.4-5.0) L 07/22/22 20:20 Globulin 4.5 g/dL (2.5-4.5) 07/22/22 20:20 Albumin/Globulin Ratio 0.6 Ratio (1.1-2.1) L 07/22/22 20:20 SARS-CoV-2 (PCR) Negative (NEGATIVE) 07/22/22 23:29 Influenza Type A (PCR) Negative (NEGATIVE) 07/22/22 23:29 Influenza Type B (PCR) Negative (NEGATIVE) 07/22/22 23:29 RSV (PCR) Negative (NEGATIVE) 07/22/22 23:29 Reason For Visit: WOUND DEHISCENCE LEFT LOWER EXTREMITY Discharge Diagnosis All Active Problems (Updated 07/23/22 @ 00:05 by Vasquez Hogan) Dehiscence of amputation stump of left lower extremity (Acute) 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 Pt is to keep follow up appointment as instructed and take medications as ordered. Discharge Medications Discharge Medications: No Known Drug Allergies Allergy (Verified 11/05/21 15:45) CONTINUE taking the following medications acetaminophen 160 mg/5 mL oral liquid 650 mg PO Q4H PRN Pain (Scale Score 4-6) 07/23/22 [History] acetaminophen 325 mg tablet 650 mg PO Q4H PRN Fever Or Pain 07/23/22 [History] ascorbic acid (vitamin C) 500 mg tablet (Vitamin C) 500 mg PO QDAY 07/23/22 [History] aspirin 81 mg tablet,delayed release 81 mg PO QDAY 07/23/22 [History] bisacodyl 10 mg rectal suppository (Dulcolax (bisacodyl)) 10 mg TN QDAY PRN 07/23/22 [History] bisacodyl 5 mg tablet,delayed release (Dulcolax (bisacodyl)) 10 mg PO QHS 07/23/22 [History] carboxymethylcellulose 0.5 %-glycerin 1 % (PF) eye drops,dropperette 2 drp ophthalmic (eye) Q4HR PRN 07/23/22 [History] docusate sodium 100 mg capsule (Colace) 200 mg PO HS 07/23/22 [History] linaclotide 145 mcg capsule (Linzess) 145 mcg PO QAM 07/23/22 [History] metoprolol tartrate 25 mg tablet 25 mg PO BID 07/23/22 [History] minerals 1 cap PO DAILY 07/23/22 [History] nicotine 21 mg/24 hr daily transdermal patch (Nicoderm CQ) 1 patch transdermal QDAY 07/23/22 [History] pantoprazole 40 mg tablet,delayed release (Protonix) 40 mg PO QDAY 07/23/22 [History] silver sulfadiazine 1 % topical cream 1 applic topical QDAY 07/23/22 [History] zinc 100 mg tablet 220 mg PO QDAY 07/23/22 [History] New Prescriptions fentanyl 50 mcg/hr transdermal patch 1 patch transdermal Q72H Pain 30 days #10 ea 07/25/22 [Rx] oxycodone-acetaminophen 10 mg-325 mg tablet (Percocet) 1 tab PO Q6H PRN Pain #40 tabs 07/25/22 [Rx] Discharge Disposition Assessment: See hospital course Discharge Plan Discharge Plan Hospital Course: This is a 61 year old male with significant tobacco abuse history and significant bilateral lower extremity arterial disease. He underwent multiple arterial interventions both legs and they ultimately failed due to his continued smoking. He has now undergone bilateral above-knee amputation, the most recent one being on the left side. He presented with wound dehiscence of the left above knee amputation stump with exposure of the femur . He was admitted on July 22 for fluids and IV antibiotics. He was taken to the operating Suite on 07/24 for debridement of the left above knee amputation stump wound measuring approximately 20 by 18 x 8 cm which included removal of the distal end of the femur and placement of a wound vacuum. He will be discharged today on as usual medications Plus fentanyl patch, 50 mg every 72 hours and Percocet, 10 mg tablets, one every six hours prn Pain. His wound VAC will be changed three times a week and he will follow up in my office in one week. Patient Disposition: SNF Condition: Stable Health Concerns: Post Hospitalization: new medications and changes needed to prevent readmission or further decline. Pt educated and given instructions on all concerns. Plan of Treatment: Continue with present treatment and follow up plan. Pt is to keep follow up appointment as instructed and take medications as ordered. Assessment: See hospital course Prescription drug monitoring program results: PDMP was not reviewed Prescriptions: New fentanyl 50 mcg/hr Patch 72 Hour 1 patch TRANSDERMAL Q72H MDD 1 30 Days Qty: 10 0RF Continued acetaminophen 325 mg Tablet 650 mg PO Q4H PRN (Reason: Fever Or Pain) acetaminophen 160 mg/5 mL Liquid 650 mg PO Q4H PRN (Reason: Pain (Scale Score 4-6)) aspirin 81 mg Tablet,Delayed Release (Dr/Ec) 81 mg PO QDAY bisacodyl [Dulcolax (bisacodyl)] 10 mg Suppository 10 mg TN QDAY PRN docusate sodium [Colace] 100 mg Capsule 200 mg PO HS bisacodyl [Dulcolax (bisacodyl)] 5 mg Tablet,Delayed Release (Dr/Ec) 10 mg PO QHS silver sulfadiazine 1 % Cream 1 applic TOPICAL QDAY Rx Instructions: apply a 1.5 mm thickness clean left/right buttocks with ns pat dry then apply cream. zinc 100 mg Tablet 220 mg PO QDAY minerals Capsule 1 cap PO DAILY ascorbic acid (vitamin C) [Vitamin C] 500 mg Tablet 500 mg PO QDAY pantoprazole [Protonix] 40 mg Tablet,Delayed Release (Dr/Ec) 40 mg PO QDAY nicotine [Nicoderm CQ] 21 mg/24 hr Patch 24 Hour 1 patch TRANSDERMAL QDAY metoprolol tartrate 25 mg Tablet 25 mg PO BID Linzess 145 mcg Capsule 145 mcg PO QAM carboxymethylcell-glycerin(PF) 0.5-1 % Dropperette 2 drp OPHTHALMIC (EYE) Q4HR PRN oxycodone-acetaminophen [Percocet] 10-325 mg Tablet 1 tab PO Q6H MDD 3 PRN (Reason: Pain) Qty: 40 0RF Discontinued doxycycline hyclate 100 mg Capsule 100 mg PO BID Rx Instructions: started 07/21/2022 for 10 days fentanyl 12 mcg/hr Patch 72 Hour 1 patch TRANSDERMAL Q72H Rx Instructions: applied 07/19/2022 right arm at half-way. Orders to Discharge Patient Discharge Orders: Discharge (Routine); Ordered 07/25/22 Ordered By: Vasquez Hogan Follow ups/Referrals Follow ups/Referrals: Vasquez Hogan [STAFF PHYSICIAN] - 07/30/22 11:00 am Instructions Stand Alone Forms: Precautions for COVID19, [facility], Patient Portal, Social Distancing
== END 2022-07-25 16:20 | DRG 499 ==
LOC: MED/SURG 16:55
PROVIDERS: ADMIT Surgery; ATTEND Surgery
DX: Z89.612 Acquired absence of left leg above knee; T87.81 Dehiscence of amputation stump; B96.5 Pseudomonas (aeruginosa) (mallei) (pseudomallei) as the cause of diseases classified elsewhere; B96.89 Other specified bacterial agents as the cause of diseases classified elsewhere; I10 Essential (primary) hypertension; Z72.0 Tobacco use; Z89.611 Acquired absence of right leg above knee; Z20.822 Contact with and (suspected) exposure to COVID-19